=== PATIENT | male | born 1970 | race African-American/Black ===

== ENCOUNTER 2018-05-21 00:11 | Emergency (ER) | payer OTHER ==
--- OUTSIDE RECORDS SUMMARY | 2018-05-21 00:14 | XMS REPORT ---
:1970 [facility] Address [address] [place] [address] Dr. Hughes [address] [place] [id number] Care Team Providers Name Role Phone Unavailable Unavailable Unavailable Problems This patient has no known problems. Allergies, Adverse Reactions, Alerts This patient has no known allergies or adverse reactions. Medications This patient has no known medications.
[2018-05-21] MEDS ORDERED: NA CHLORIDE 0.9% 1,000 ML ONE (02:14)
[2018-05-21 02:22] LABS: Absolute Lymphocytes (CBC) 3.6 K/uL (0.7-4.9); Absolute Monocytes 0.5 K/uL (0.1-1.3); Absolute Neutrophil 2.7 K/uL (1.8-8.0); Basophils % 0.7 % (0-1.3); Hematocrit 35.5 % (39.6-49.0); MPV 9.2 fL (7.6-11.3); Monocytes % 7.3 % (3.3-12.3); RBC Red Blood Cell Count 3.82 M/uL (4.33-5.43)
[2018-05-21 02:36] LABS: Potassium 4.5 mmol/L (3.5-5.1)
[2018-05-21] MEDS ORDERED: ACETAMINOPHEN 325 MG TABLET ONE (02:41)
--- NOTE | 2018-05-21 03:18 | EDPHYS ---
Physician Documentation [facility] Name: Manfred Canales Jr Age: 48 yrs Sex: Male : 1970 Arrival Date: 05/21/2018 Time: 00:14 Bed 4 Private MD: ED Physician Joao Wetzel HPI: 05/21 03:09 This 48 yrs old Black Male presents to ER via Ambulatory with complaints of high blood gs sugar and bp. 03:09 Onset: The symptoms/episode began/occurred 2 week(s) ago. Associated signs and gs symptoms: Pertinent positives: visual changes. Severity of symptoms: At its worst the blood pressure was moderate, in the emergency department the blood pressure is unchanged. The patient has experienced similar episodes in the past, a few times. says stopped taking medicine for bp and diabetes. Historical: - Allergies: 00:27 No Known Allergies; bb - Home Meds: :27 Unable to obtain [Active]; bb - PMHx: :27 Diabetes - NIDDM; Gout; High Cholesterol; Hypertension; Myocardial infarction; bb - PSHx: 00:27 CABG; Heart stents; Carpal Tunnel Repair; herniated discs in neck; right hip; bb - Immunization history:: Adult Immunizations up to date. - Social history:: Smoking status: Patient/guardian denies using tobacco, Patient uses alcohol, but reports only rare drinking. - Ebola Screening: : No symptoms or risks identified at this time. ROS: 03:09 All other systems are negative. gs Exam: 03:09 Head/Face: Normocephalic, atraumatic. Eyes: Pupils equal round and reactive to light, gs extra-ocular motions intact. Lids and lashes normal. Conjunctiva and sclera are non-icteric and not injected. Cornea within normal limits. Periorbital areas with no swelling, redness, or edema. ENT: Nares patent. No nasal discharge, no septal abnormalities noted. Tympanic membranes are normal and external auditory canals are clear. Oropharynx with no redness, swelling, or masses, exudates, or evidence of obstruction, uvula midline. Mucous membranes moist. Neck: Trachea midline, no thyromegaly or masses palpated, and no cervical lymphadenopathy. Supple, full range of motion without nuchal rigidity, or vertebral point tenderness. No Meningismus. Chest/axilla: Normal chest wall appearance and motion. Nontender with no deformity. No lesions are appreciated. Cardiovascular: Regular rate and rhythm with a normal S1 and S2. No gallops, murmurs, or rubs. Normal PMI, no JVD. No pulse deficits. Respiratory: Lungs have equal breath sounds bilaterally, clear to auscultation and percussion. No rales, rhonchi or wheezes noted. No increased work of breathing, no retractions or nasal flaring. Abdomen/GI: Soft, non-tender, with normal bowel sounds. No distension or tympany. No guarding or rebound. No evidence of tenderness throughout. Back: No spinal tenderness. No costovertebral tenderness. Full range of motion. Skin: Warm, dry with normal turgor. Normal color with no rashes, no lesions, and no evidence of cellulitis. MS/ Extremity: Pulses equal, no cyanosis. Neurovascular intact. Full, normal range of motion. Neuro: Awake and alert, GCS 15, oriented to person, place, time, and situation. Cranial nerves II-XII grossly intact. Motor strength 5/5 in all extremities. Sensory grossly intact. Cerebellar exam normal. Normal gait. 03:09 Constitutional: The patient appears alert, awake. 03:09 ECG was reviewed by the Attending Physician. Vital Signs: 00:27 BP 130 / 81; Pulse 61; Resp 16 S; Temp 98.6(O); Pulse Ox 98% on R/A; Weight 113.4 kg bb (R); Height 5 ft. 11 in. (180.34 cm) (R); Pain 8/10; 01:30 BP 115 / 73; Pulse 55; Resp 16; Pulse Ox 99% ; rr5 02:30 BP 113 / 70; Pulse 58; Resp 15; Pulse Ox 99% ; rr5 03:00 BP 104 / 65; Pulse 56; Resp 16; Pulse Ox 99% ; rr5 03:30 BP 103 / 52; Pulse 58; Resp 16; Pulse Ox 98% ; rr5 04:00 BP 106 / 59; Pulse 60; Resp 17; Pulse Ox 99% ; rr5 00:27 Body Mass Index 34.87 (113.40 kg, 180.34 cm) bb Visual Acuity: 02:28 Left Eye Visual acuity 20/20, Pupil size 2 mm, Normal, Brisk, Reactive To Accomodation; rr5 Right Eye Visual acuity 20/20, Pupil size 2 mm, Normal, Brisk, Reactive To Accomodation; Both Eyes Visual acuity 20/20; Without Lenses; MDM: 02:01 Patient medically screened. 03:09 Differential diagnosis: hypertensive crisis, Malignant HTN, neoplasm, dm retinal gs hemorrhage. Data reviewed: vital signs, nurses notes. Response to treatment: the patient's symptoms have markedly improved after treatment, and as a result, I will discharge patient. 05/21 01:54 Order name: CBC with Diff; Complete Time: 03:03 05/21 01:54 Order name: Basic Metabolic Panel; Complete Time: 03:03 05/21 01:54 Order name: CT Head Brain wo Cont 05/21 01:55 Order name: Visual Acuity; Complete Time: 02:28 05/21 01:59 Order name: EKG - Nurse/Tech; Complete Time: 02:02 Administered Medications: 02:25 Drug: NS 0.9% 1000 ml Route: IV; Rate: 1 bolus; Site: left forearm; rr5 04:03 Follow up: Response: No adverse reaction; IV Status: Completed infusion; IV Intake: rr5 1000ml 02:33 Drug: Tylenol 650 mg Route: PO; rr5 04:03 Follow up: Response: No adverse reaction rr5 Point of Care Testing: Blood Glucose: 01:57 Blood Glucose: 377 mg/dL; rr5 03:55 Blood Glucose: 337 mg/dL; rr5 Ranges: Critical Glucose Levels:Adult <50 mg/dl or >400 mg/dl <40 mg/dl or >180 mg/dl Disposition: 05/21/18 03:17 Discharged to Home. Impression: Essential (primary) hypertension, Hyperglycemia, unspecified. - Condition is Stable. - Discharge Instructions: Hyperglycemia, Hypertension. - Medication Reconciliation Form, Thank You Letter, Antibiotic Education, Prescription Opioid Use form. - Follow up: Private Physician; When: 2 - 3 days; Reason: Recheck today's complaints, Re-evaluation by your physician. Signatures: Dispatcher [employer] Tammy Burk, RN RN Joao Hernandez MD MD gs Roque, Raymond, RN RN rr5 Corrections: (The following items were deleted from the chart) 04:07 03:17 05/21/2018 03:17 Discharged to Home. Impression: Essential (primary) rr5 hypertension; Hyperglycemia, unspecified. Condition is Stable. Forms are Medication Reconciliation Form, Thank You Letter, Antibiotic Education, Prescription Opioid Use. Follow up: Private Physician; When: 2 - 3 days; Reason: Recheck today's complaints, Re-evaluation by your physician. gs
--- NOTE | 2018-05-21 03:18 | ER ---
Nurse's Notes [facility] Name: Manfred Canales Jr Age: 48 yrs Sex: Male : 1970 Arrival Date: 05/21/2018 Time: 00:14 Bed 4 Private MD: Diagnosis: Essential (primary) hypertension;Hyperglycemia, unspecified Presentation: 05/21 00:24 Presenting complaint: Patient states: he has had blurred vision x 1.5 weeks states the bb last time it happened his blood sugar was high. Transition of care: patient was not received from another setting of care. Onset of symptoms was May 11, 2018. Risk Assessment: Do you want to hurt yourself or someone else? Patient reports no desire to harm self or others. Initial Sepsis Screen: Does the patient meet any 2 criteria? No. Patient's initial sepsis screen is negative. Does the patient have a suspected source of infection? No. Patient's initial sepsis screen is negative. Care prior to arrival: None. 00:24 Method Of Arrival: Ambulatory bb 00:24 Acuity: ISABEL 3 bb Historical: - Allergies: 00:27 No Known Allergies; bb - Home Meds: 00:27 Unable to obtain [Active]; bb - PMHx: 00:27 Diabetes - NIDDM; Gout; High Cholesterol; Hypertension; Myocardial infarction; bb - PSHx: 00:27 CABG; Heart stents; Carpal Tunnel Repair; herniated discs in neck; right hip; bb - Immunization history:: Adult Immunizations up to date. - Social history:: Smoking status: Patient/guardian denies using tobacco, Patient uses alcohol, but reports only rare drinking. - Ebola Screening: : No symptoms or risks identified at this time. Screenin:30 Abuse screen: Denies threats or abuse. Denies injuries from another. Nutritional rr5 screening: No deficits noted. Tuberculosis screening: No symptoms or risk factors identified. Fall Risk Secondary diagnosis (15 points) blurred vision. No IV (0 pts). Ambulatory Aid- None/Bed Rest/Nurse Assist (0 pts). Gait- Normal/Bed Rest/Wheelchair (0 pts) Mental Status- Oriented to own ability (0 pts). Total Mae Fall Scale indicates No Risk (0-24 pts). Assessment: 00:30 General: Appears in no apparent distress. uncomfortable, Behavior is calm, cooperative, rr5 appropriate for age. Pain: Denies pain. Complains of pain in temporal area Pain does not radiate. Pain currently is 8 out of 10 on a pain scale. Quality of pain is described as aching, Pain began gradually. 00:30 Pain: Is intermittent. Neuro: Level of Consciousness is awake, alert, obeys commands, rr5 Oriented to person, place, time, situation, Appropriate for age Reports headache temporal area. Cardiovascular: Capillary refill < 3 seconds Patient's skin is warm and dry. Respiratory: Airway is patent Respiratory effort is even, unlabored, Respiratory pattern is regular, symmetrical. GI: Abdomen is round. : No signs and/or symptoms were reported regarding the genitourinary system. EENT: Reports blurred vision. Derm: Skin is intact, Skin temperature is warm. Musculoskeletal: No signs and/or symptoms reported regarding the musculoskeletal system. Capillary refill < 3 seconds, Range of motion: intact in all extremities. 01:10 Reassessment: Patient appears in no apparent distress at this time. No changes from rr5 previously documented assessment. Patient is alert, oriented x 3, equal unlabored respirations, skin warm/dry/pink. 02:50 Reassessment: Patient appears in no apparent distress at this time. Patient is alert, rr5 oriented x 3, equal unlabored respirations, skin warm/dry/pink. awaiting for CT report. 04:00 Reassessment: Patient appears in no apparent distress at this time. No changes from rr5 previously documented assessment. Patient is alert, oriented x 3, equal unlabored respirations, skin warm/dry/pink. discharge instruction given and explained without complaints made. Patient states symptoms have improved. Vital Signs: 00:27 BP 130 / 81; Pulse 61; Resp 16 S; Temp 98.6(O); Pulse Ox 98% on R/A; Weight 113.4 kg bb (R); Height 5 ft. 11 in. (180.34 cm) (R); Pain 8/10; 01:30 BP 115 / 73; Pulse 55; Resp 16; Pulse Ox 99% ; rr5 02:30 BP 113 / 70; Pulse 58; Resp 15; Pulse Ox 99% ; rr5 03:00 BP 104 / 65; Pulse 56; Resp 16; Pulse Ox 99% ; rr5 03:30 BP 103 / 52; Pulse 58; Resp 16; Pulse Ox 98% ; rr5 04:00 BP 106 / 59; Pulse 60; Resp 17; Pulse Ox 99% ; rr5 00:27 Body Mass Index 34.87 (113.40 kg, 180.34 cm) bb Visual Acuity: 02:28 Left Eye Visual acuity 20/20, Pupil size 2 mm, Normal, Brisk, Reactive To Accomodation; rr5 Right Eye Visual acuity 20/20, Pupil size 2 mm, Normal, Brisk, Reactive To Accomodation; Both Eyes Visual acuity 20/20; Without Lenses; ED Course: 00:14 Patient arrived in ED. ag3 00:25 Triage completed. bb 00:27 Arm band placed on Patient placed in an exam room, on a stretcher, on pulse oximetry. bb EKG completed in triage. Results shown to MD. 00:30 Patient has correct armband on for positive identification. Placed in gown. Bed in low rr5 position. Call light in reach. Side rails up X2. monitoring tech on. Pulse ox on. NIBP on. 00:35 Ryan Mckeon RN is Primary Nurse. rr5 01:53 Joao Wetzel MD is Attending Physician. gs 02:14 No provider procedures requiring assistance completed. Inserted saline lock: 20 gauge rr5 in left forearm, using aseptic technique. Blood collected. 02:15 Basic Metabolic Panel Sent. rr5 02:15 CBC with Diff Sent. rr5 02:[address] via wheelchair. kw1 02:23 CT Head Brain wo Cont In Process Unspecified. EDMS 02:24 CT completed. Patient tolerated procedure well. Patient moved back from CT. kw1 04:03 IV discontinued, intact, bleeding controlled, No redness/swelling at site. Pressure rr5 dressing applied. Administered Medications: 02:25 Drug: NS 0.9% 1000 ml Route: IV; Rate: 1 bolus; Site: left forearm; rr5 04:03 Follow up: Response: No adverse reaction; IV Status: Completed infusion; IV Intake: rr5 1000ml 02:33 Drug: Tylenol 650 mg Route: PO; rr5 04:03 Follow up: Response: No adverse reaction rr5 Point of Care Testing: Blood Glucose: 01:57 Blood Glucose: 377 mg/dL; rr5 03:55 Blood Glucose: 337 mg/dL; rr5 Ranges: Intake: 04:03 IV: 1000ml; Total: 1000ml. rr5 Outcome: 03:17 Discharge ordered by . gutierrez 04:00 Discharged to home ambulatory. rr5 04:00 Condition: stable 04:00 Discharge instructions given to patient, Instructed on discharge instructions, follow up and referral plans. Demonstrated understanding of instructions, follow-up care. 04:07 Patient left the ED. rr5 Signatures: Dispatcher [employer] EDTammy Spence RN RN Joao Hernandez MD MD Annie Botello1 Lita Pablo 3 Ryan Mckeon RN RN rr5 Corrections: (The following items were deleted from the chart) 00:42 00:30 Fall Risk Secondary diagnosis (15 points) blurred vision. No IV (0 pts). rr5 Ambulatory Aid- None/Bed Rest/Nurse Assist (0 pts). Gait- Normal/Bed Rest/Wheelchair (0 pts) Mental Status- Oriented to own ability (0 pts). rr5
[2018-05-21 04:24] VITALS: TEMP 98.6
[2018-05-21 04:31] VITALS: BP 106/59; O2SAT 99
--- NOTE | 2018-05-21 11:00 | RAD REPORT ---
EXAM DESCRIPTION: CT - Head Brain Wo Cont - 05/21/2018 9:21 am CLINICAL HISTORY: Blurred vision COMPARISON: None. TECHNIQUE: Computed axial tomography of the head was obtained. IV contrast was not requested.A preli minary report was generated by Directly and reviewed prior to dictation All CT scans are performed using dose optimization technique as appropriate and may include automated exposure control or mA/KV adjustment according to patient size. FINDINGS: An intracranial bleed is not seen . The ventricles are normal in caliber. No extra-axial fluid collection is noted. Fluid within the sinuses/ mastoids is not seen. IMPRESSION: No acute intracranial abnormality is seen. If patient's symptoms persist MRI of the bra in would be recommended.
--- NOTE | 2018-05-23 11:49 | EKG ---
Test Date: 2018-05-21 Test Time: 00:23:15 [employer]ork Truck Driver: BARRON MEASUREMENT RESULTS: Intervals: Rate: 56 AR: 206 QRSD: 112 QT: 436 QTc: 420 [place]: P: 61 AR: 206 QRS: 98 T: 54 INTERPRETIVE STATEMENTS: Sinus bradycardia Rightward axis Cannot rule out Anterior infarct, age undetermined Abnormal ECG Compared to ECG 07/30/2016 00:06:28 Right-axis deviation now present Myocardial infarct finding now present Sinus rhythm no longer present Left-axis deviation no longer present Left ventricular hypertrophy no longer present ST (T wave) deviation no longer present Prolonged QT interval no longer present Electronically Signed On 05-23-18 11:43:25 HEEL BUILDER by Irwin Ying
== END 2018-05-21 04:07 | disposition home or self-care (01) ==
LOC: ER 00:11
DX: R73.9 Hyperglycemia, unspecified (principal); I10 Essential (primary) hypertension
CPT/HCPCS: 36415; 70450; 80048; 82962 ×2; 85025; 93005; J7030

== ENCOUNTER 2018-05-24 21:11 | Emergency (ER) | payer OTHER ==
--- OUTSIDE RECORDS SUMMARY | 2018-05-24 21:14 | XMS REPORT ---
:1970 [facility] [address] [place] [address] Dr. Hughes [address] [place] [id number] Care Team Providers Name Role Phone Unavailable Unavailable Unavailable Problems This patient has no known problems. Allergies, Adverse Reactions, Alerts This patient has no known allergies or adverse reactions. Medications This patient has no known medications.
[2018-05-24 23:33] LABS: Absolute Monocytes 0.5 K/uL (0.1-1.3); Basophils % 1.3 % (0-1.3); Eosinophils % 0.6 % (0-4.4); Lymphocytes % 52.2 % (15.3-44.8); MPV 8.9 fL (7.6-11.3); Monocytes % 7.1 % (3.3-12.3); RBC Red Blood Cell Count 3.78 M/uL (4.33-5.43)
[2018-05-25] LABS: Bilirubin Direct 0.3 mg/dL (0-0.2); Bilirubin Total 1.2 mg/dL (0.2-1.0); Potassium 4.2 mmol/L (3.5-5.1); Protein, Total 7.6 g/dL (6.4-8.2)
[2018-05-25] MEDS ORDERED: INSULIN -REGULAR HUMAN 50 UNIT/0.5 ML ML ONE (00:04)
[2018-05-25] MEDS ORDERED: NA CHLORIDE 0.9% 1,000 ML ONE (00:04)
--- NOTE | 2018-05-25 00:14 | ER ---
Nurse's Notes [facility] Name: Manfred Canales Jr Age: 48 yrs Sex: Male : 1970 Arrival Date: 05/24/2018 Time: 21:13 Bed 18 Private MD: Erick Fishman Diagnosis: Diabetes mellitus due to underlying condition with hyperglycemia Presentation: 05/24 21:18 Presenting complaint: Patient states: Seen here on Wednesday for same complaint and told lp1 to return if blurred vision did not improve; Denies any other symptoms. Transition of care: patient was not received from another setting of care. Onset of symptoms was May 21, 2018. Risk Assessment: Do you want to hurt yourself or someone else? Patient reports no desire to harm self or others. Initial Sepsis Screen: Does the patient meet any 2 criteria? No. Patient's initial sepsis screen is negative. Does the patient have a suspected source of infection? No. Patient's initial sepsis screen is negative. Care prior to arrival: None. 21:18 Method Of Arrival: Ambulatory lp1 21:18 Acuity: ISABEL 3 lp1 Historical: - Allergies: 21:24 Morphine; lp1 - Home Meds: 21:24 aspirin 81 mg Oral TbEC 1 tab once daily [Active]; amlodipine 10 mg tab 1 tab once lp1 daily [Active]; metformin 850 mg Oral tab 1 tab 3 times per day [Active]; Januvia 100 mg Oral tab 1 tab once daily [Active]; allopurinol 100 mg Oral tab 1 tab once daily [Active]; lovastatin 40 mg Oral tab 1 tab once daily [Active]; Plavix 75 mg Oral tab 1 tab once daily [Active]; - PMHx: 21:24 Myocardial infarction; Diabetes - NIDDM; Gout; High Cholesterol; Hypertension; lp1 - PSHx: 21:24 Heart stents; CABG; Disc fusion of 4-5 discs; Carpal Tunnel Repair; lp1 - Immunization history:: Adult Immunizations up to date. - Social history:: Smoking status: Patient/guardian denies using tobacco. - Ebola Screening: : No symptoms or risks identified at this time. Screenin:24 Abuse screen: Denies threats or abuse. Denies injuries from another. Nutritional lp1 screening: No deficits noted. Tuberculosis screening: No symptoms or risk factors identified. Fall Risk None identified. Assessment: 21:34 General: Appears in no apparent distress. comfortable, well groomed, well developed, eb1 Behavior is calm, cooperative, appropriate for age, Denies fever, feeling ill, fatigue, chills. Pain: Complains of pain in neck Pain currently is 8 out of 10 on a pain scale. Neuro: Level of Consciousness is awake, alert, obeys commands, Oriented to person, place, time, [employer] Associate are equal bilaterally Moves all extremities. Full function Gait is steady, Speech is normal, Facial symmetry appears normal, Pupils are PERRLA, Intact Reports blurred vision since x1 week. Cardiovascular: No deficits noted. Respiratory: No deficits noted. GI: No deficits noted. : No deficits noted. EENT: No deficits noted. Derm: No deficits noted. Musculoskeletal: No deficits noted. 23:02 Reassessment: No changes from previously documented assessment. Patient and/or family eb1 updated on plan of care and expected duration. Pain level reassessed. Patient is alert, oriented x 3, equal unlabored respirations, skin warm/dry/pink. Vital Signs: 21:20 BP 123 / 81; Pulse 61; Resp 18; Temp 99.5(O); Pulse Ox 98% on R/A; Weight 113.4 kg; lp1 Height 5 ft. 11 in. (180.34 cm); Pain 0/10; 22:40 BP 107 / 74; Pulse 70; Resp 20; Temp 98.7; Pulse Ox 99% ; Pain 8/10; eb1 23:44 BP 110 / 77; Pulse 60; Resp 20; Temp 98.8; Pulse Ox 99% ; Pain 8/10; eb1 05/25 01:07 Pain 6/10; eb1 05/24 21:20 Body Mass Index 34.87 (113.40 kg, 180.34 cm) lp1 Visual Acuity: 05/24 23:44 Left Eye Visual acuity 20/70, Pupil size 3 mm, Normal, React To Light; Right Eye Visual eb1 acuity 20/70, Pupil size 3 mm, Normal, React To Light; Both Eyes Visual acuity 20/70; Without Lenses; ED Course: 21:13 Patient arrived in ED. es 21:14 Erick Fishman MD is Private Physician. es 21:19 Triage completed. lp1 21:19 Arm band placed on left wrist. lp1 22:17 Page, Pepe, PA is PHCP. cp 22:17 Derrick Contreras MD is Attending Physician. cp 05/25 00:02 Inserted saline lock: 20 gauge in left forearm, using aseptic technique. jd3 00:03 Patient has correct armband on for positive identification. Placed in gown. Bed in low eb1 position. Call light in reach. Side rails up X2. rn med surg on. Pulse ox on. NIBP on. 01:08 No provider procedures requiring assistance completed. IV discontinued, intact, eb1 bleeding controlled, No redness/swelling at site. Pressure dressing applied. Administered Medications: 05/24 23:56 Drug: NovoLIN R 7 units {Co-Signature: jose (Nguyễn Talbert RN).} Route: Sub-Q; Site: eb1 right upper arm; 05/25 00:09 Drug: NS 0.9% 1000 ml Route: IV; Rate: 1 bolus; Site: left forearm; eb1 00:13 Drug: TORadol 30 mg Route: IVP; Site: left forearm; eb1 01:07 Follow up: Pain 10/10 Adult eb1 Outcome: 00:13 Discharge ordered by MD. cp 01:08 Discharged to home ambulatory. eb1 01:08 Condition: good 01:08 Discharge instructions given to patient, Instructed on discharge instructions, follow up and referral plans. Demonstrated understanding of instructions, follow-up care. 01:09 Patient left the ED. eb1 Signatures: Casie Samuels Laura, RN RN lp1 Pepe Quiñonez PA PA cp Davies, Jonathon, RN RN jd3 Basinger, Emily, RN RN eb1 Nguyễn garcia
--- NOTE | 2018-05-25 00:15 | EDPHYS ---
Physician Documentation [facility] Name: Manfred Canales Jr Age: 48 yrs Sex: Male : 1970 Arrival Date: 05/24/2018 Time: 21:13 Bed 18 Private MD: Erick Fishman ED Physician Derrick Contreras HPI: 05/24 22:35 This 48 yrs old Black Male presents to ER via Ambulatory with complaints of Blurred cp Vision. 22:35 The patient's problem is reported as blurred vision. Onset: The symptoms/episode cp began/occurred last week. Duration: The episode is continuous. Context: Possible contributing factors include: Patient is a know diabetic. Associated signs and symptoms: Pertinent negatives: abdominal pain, chest pain, headache, numbness, palpitations, vertigo, vomiting, weakness. Severity of symptoms: in the emergency department the symptoms are unchanged despite home interventions. Patient's baseline: Neuro: alert and fully oriented, Motor: no deficits, Ambulation: walks without assistance, Speech: normal. Historical: - Allergies: 21:24 Morphine; lp1 - Home Meds: 21:24 aspirin 81 mg Oral TbEC 1 tab once daily [Active]; amlodipine 10 mg tab 1 tab once lp1 daily [Active]; metformin 850 mg Oral tab 1 tab 3 times per day [Active]; Januvia 100 mg Oral tab 1 tab once daily [Active]; allopurinol 100 mg Oral tab 1 tab once daily [Active]; lovastatin 40 mg Oral tab 1 tab once daily [Active]; Plavix 75 mg Oral tab 1 tab once daily [Active]; - PMHx: 21:24 Myocardial infarction; Diabetes - NIDDM; Gout; High Cholesterol; Hypertension; lp1 - PSHx: 21:24 Heart stents; CABG; Disc fusion of 4-5 discs; Carpal Tunnel Repair; lp1 - Immunization history:: Adult Immunizations up to date. - Social history:: Smoking status: Patient/guardian denies using tobacco. - Ebola Screening: : No symptoms or risks identified at this time. ROS: 22:40 Constitutional: Negative for body aches, chills, poor PO intake. cp 22:40 ENT: Negative for injury, pain, and discharge. cp 22:40 Eyes: Positive for blurry vision, Negative for discharge, pain, redness, vision loss. 22:40 Cardiovascular: Negative for chest pain, edema, palpitations. 22:40 Respiratory: Negative for cough, shortness of breath, wheezing. 22:40 Abdomen/GI: Negative for abdominal pain, nausea, vomiting, and diarrhea, constipation, black/tarry stool, rectal bleeding. 22:40 Back: Negative for pain at rest, pain with movement, radiated pain. 22:40 : Negative for urinary symptoms. 22:40 Skin: Negative for cellulitis, rash. 22:40 Neuro: Negative for altered mental status, headache, syncope, near syncope, weakness. 22:40 All other systems are negative. Exam: 22:45 Constitutional: The patient appears in no acute distress, alert, awake, cp non-diaphoretic, non-toxic, well developed, well nourished. 22:45 Head/Face: Normocephalic, atraumatic. Eyes: Pupils equal round and reactive to light, cp extra-ocular motions intact. Lids and lashes normal. Conjunctiva and sclera are non-icteric and not injected. Cornea within normal limits. Periorbital areas with no swelling, redness, or edema. ENT: Nares patent. No nasal discharge, no septal abnormalities noted. Tympanic membranes are normal and external auditory canals are clear. Oropharynx with no redness, swelling, or masses, exudates, or evidence of obstruction, uvula midline. Mucous membranes moist. 22:45 Neck: External neck: is normal, ROM/movement: is normal, is supple, no range of motions limitations, no meningismus, no nuchal rigidity. 22:45 Chest/axilla: Inspection: normal, Palpation: is normal, no crepitus, no tenderness. 22:45 Cardiovascular: Rate: normal, Rhythm: regular, Heart sounds: murmur, not appreciated, rub, not appreciated, gallop, not appreciated, Edema: is not appreciated, JVD: is not appreciated. 22:45 Respiratory: the patient does not display signs of respiratory distress, Respirations: normal, no use of accessory muscles, no retractions, no splinting, no tachypnea, labored breathing, is not present, Breath sounds: are clear throughout, no decreased breath sounds, no stridor, no wheezing. 22:45 Abdomen/GI: Inspection: abdomen appears normal, Bowel sounds: active, all quadrants, Palpation: abdomen is soft and non-tender, in all quadrants, rebound tenderness, is not appreciated, voluntary guarding, is not appreciated, involuntary guarding, is not appreciated. 22:45 Back: pain, is absent, ROM is normal. 22:45 Musculoskeletal/extremity: Exam is negative for decreased range of motion, deformity, injury. 22:45 Skin: cellulitis, is not appreciated, no rash present. 22:45 Neuro: Orientation: to person, place \T\ time. Mentation: is normal, Cerebellar function: is grossly normal, Motor: moves all fours, strength is normal, Sensation: is normal, Gait: is steady, at a normal pace, without difficulty. 22:45 CT study not indicated or reported. Reason for not performing CT: patient had normal head CT 05-21-2018 for similar complaints 23:35 ECG was reviewed by the Attending Physician. Vital Signs: 21:20 BP 123 / 81; Pulse 61; Resp 18; Temp 99.5(O); Pulse Ox 98% on R/A; Weight 113.4 kg; lp1 Height 5 ft. 11 in. (180.34 cm); Pain 0/10; 22:40 BP 107 / 74; Pulse 70; Resp 20; Temp 98.7; Pulse Ox 99% ; Pain 8/10; eb1 23:44 BP 110 / 77; Pulse 60; Resp 20; Temp 98.8; Pulse Ox 99% ; Pain 8/10; eb1 05/25 01:07 Pain 6/10; eb1 05/24 21:20 Body Mass Index 34.87 (113.40 kg, 180.34 cm) lp1 Visual Acuity: 05/24 23:44 Left Eye Visual acuity 20/70, Pupil size 3 mm, Normal, React To Light; Right Eye Visual eb1 acuity 20/70, Pupil size 3 mm, Normal, React To Light; Both Eyes Visual acuity 20/70; Without Lenses; MDM: 22:17 Patient medically screened. cp 22:30 Differential diagnosis: CVA, TIA, metabolic disorder, drug effects. 05/25 00:13 Data reviewed: vital signs, nurses notes. cp 00:13 Test interpretation: by ED physician or midlevel provider: ECG. Counseling: I had a cp detailed discussion with the patient and/or guardian regarding: the historical points, exam findings, and any diagnostic results supporting the discharge/admit diagnosis, lab results, the need for outpatient follow up, a family practitioner, to return to the emergency department if symptoms worsen or persist or if there are any questions or concerns that arise at home. Response to treatment: the patient's symptoms have mildly improved after treatment, and as a result, I will discharge patient. 05/24 22:22 Order name: Basic Metabolic Panel; Complete Time: 00:08 cp 05/25 00:08 Interpretation: Normal except: GLUC 232; GFR 84. cp 05/24 22:22 Order name: CBC with Diff; Complete Time: 23:49 cp 05/24 23:49 Interpretation: Normal except: RBC 3.78; HGB 11.9; HCT 35.0; ALEK% 38.8; LYM% 52.2. 05/24 22: Order name: Creatinine for Radiology; Complete Time: 00:08 cp 05/24 21: Order name: Hepatic Function; Complete Time: 00:08 cp 05/25 00:09 Interpretation: Normal except: BILIT 1.2; BILID 0.3; GLOB 3.6. 05/24 23:40 Order name: Glucose, Ancillary Testing; Complete Time: 23:49 EDMS 05/24 23:49 Interpretation: Abnormal: GLUC,ANCIL 268. cp 05/24 22:22 Order name: IV Saline Lock; Complete Time: 00:37 cp 05/24 21: Order name: Labs collected and sent; Complete Time: 00:37 cp 05/24 21: Order name: Accucheck Blood Glucose; Complete Time: 22:57 cp 05/24 21: Order name: Visual Acuity; Complete Time: 23:44 cp 05/24 21:23 Order name: EKG; Complete Time: 22:24 cp 05/24 22:23 Order name: EKG - Nurse/Tech; Complete Time: 00:37 cp EC/22 23:35 Rate is 60 beats/min. Rhythm is regular. DC interval is prolonged at 206 msec. QRS cp interval is normal. QT interval is normal. T waves are Flattened in lead aVL. Interpreted by me. Reviewed by me. Administered Medications: 23:56 Drug: NovoLIN R 7 units {Co-Signature: jd3 (Nguyễn Talbert RN).} Route: Sub-Q; Site: [facility] right upper arm; 05/25 00:09 Drug: NS 0.9% 1000 ml Route: IV; Rate: 1 bolus; Site: left forearm; eb1 00:13 Drug: TORadol 30 mg Route: IVP; Site: left forearm; eb1 01:07 Follow up: Pain 10/10 Adult eb1 Disposition: 05/25/18 00:13 Discharged to Home. Impression: Diabetes mellitus due to underlying condition with hyperglycemia. - Condition is Stable. - Discharge Instructions: Type 2 Diabetes Mellitus, Diagnosis, Adult, Blood Glucose Monitoring, Adult, Diabetes Mellitus and Food. - Medication Reconciliation Form, Thank You Letter, Antibiotic Education, Prescription Opioid Use form. - Follow up: Private Physician; When: Tomorrow; Reason: Recheck today's complaints. - Problem is chronic. - Symptoms have improved. Signatures: Dispatcher [employer] EDMS Simran Lau RN RN lp1 Pepe Quiñonez PA PA cp Davies, Jonathon, RN RN jd3 Macrina Espinoza RN RN eb1 Nguyễn Talbert RN jd3 Corrections: (The following items were deleted from the chart) 01:09 00:13 05/25/2018 00:13 Discharged to Home. Impression: Diabetes mellitus due to eb1 underlying condition with hyperglycemia. Condition is Stable. Forms are Medication Reconciliation Form, Thank You Letter, Antibiotic Education, Prescription Opioid Use. Follow up: Private Physician; When: Tomorrow; Reason: Recheck today's complaints. Problem is chronic. Symptoms have improved. cp
[2018-05-25] MEDS ORDERED: KETOROLAC 30 MG/ML INJ ONE (00:20)
[2018-05-25 01:48] VITALS: O2SAT 99
[2018-05-25 01:49] VITALS: BP 110/77; TEMP 98.8
--- NOTE | 2018-05-25 19:48 | EKG ---
Test Date: 2018-05-24 Test Time: 23:26:47 Meter Record Clerk: AG3 MEASUREMENT RESULTS: Intervals: Rate: 60 MO: 206 QRSD: 100 QT: 426 QTc: 426 Irving: P: 24 MO: 206 QRS: 92 T: 49 INTERPRETIVE STATEMENTS: Sinus rhythm with marked sinus arrhythmia Rightward axis Cannot rule out Anterior infarct, age undetermined Abnormal ECG Compared to ECG 05/21/2018 00:23:15 Sinus bradycardia no longer present Myocardial infarct finding still present Electronically Signed On 05-25-18 19:45:50 [employer]ATION[employer] ENG[employer] by Irwin Ying
== END 2018-05-25 01:09 | disposition home or self-care (01) ==
LOC: ER 21:11
DX: E11.65 Type 2 diabetes mellitus with hyperglycemia (principal); I10 Essential (primary) hypertension; E78.00 Pure hypercholesterolemia, unspecified; I25.2 Old myocardial infarction; Z79.4 Long term (current) use of insulin; Z79.01 Long term (current) use of anticoagulants; Z79.82 Long term (current) use of aspirin; Z88.5 Allergy status to narcotic agent; Z95.1 Presence of aortocoronary bypass graft; Z95.818 Presence of other cardiac implants and grafts
CPT/HCPCS: 36415; 80048; 80076; 82962; 85025; 93005; 96372; 96374; 99284; J7030

== ENCOUNTER 2020-07-04 13:33 | Observation (INO) | payer OTHER ==
--- OUTSIDE RECORDS SUMMARY | 2020-07-04 13:36 | XMS REPORT | Continuity of Care Document ---
:1970 Author Organization [facility] t Address [address] [place] [address] Care Team Providers Name Role Phone Viktoria ALLRED, L Attending Clinician Problems Condition Condition Condition Status Onset Resolution Last Treating Co mments Source Name Details Category Date Date Treatment Clinician Date Hx of CABG Diagnosis Active 2019-11-04 Memoria 02:53:17 l Hx of [place] CABG Active Diagnosis 11/04/2019 Ness Arzola Precordial Diagnosis Active 2019-11-04 Memoria pain 02:53:17 l [place] Precordial pain Active Diagnosis 11/04/2019 Ghazalmed Ghazalmed Shortness Diagnosis Active 2019-11-04 Memoria of breath 02:53:17 l Uri Shortness of breath Active Diagnosis 11/04/2019 Ness Ahmed Pre-operat Diagnosis Active 2019-11-04 Memoria harriett 02:53:17 l cardiovasc [place] n ular Pre-operat examinatio harriett n cardiovasc ular examinatio n Active Diagnosis 11/04/2019 Ness Arzola Other Diagnosis Active 2019-11-04 Mem oria symptoms 02:53:17 l involving Other [place] n cardiovasc symptoms ular involving system cardiovasc ular system Active Diagnosis 11/04/2019 Ness Arzola Atheroscle Diagnosis Active 2019-11-04 Memoria r of 02:53:17 l chitina Uri artery of Atherosc[place] both legs r of with chitina intermit artery of claudicati both legs on with intermit claudicati on Active Diagnosis 11/04/2019 Ness Arzola DM w/o Problem Active 2019-11-04 Memor ia complicati 02:53:17 l on type DM w/o [place] II, 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, uncontroll ed Active Problem 0 Ghazalfranca Harmanmed Benign Problem Active 2019-11-04 Memor ia hypertensi 02:53:17 l ve heart Benign [place] n disease hypertensi without ve heart congestive disease heart without failure congestive heart failure Active Problem 11/04/2019 Ghazalmed Ghazalmed Reflux Problem Active 2019-11-04 Memor ia esophagiti 02:53:17 l s Reflux Uri esophagiti s Active Problem 11/04/2019 Ahmed Ahmed Pure Problem Active 2019-11-04 Memor ia hyperchole 02:53:17 l sterolemia Pure [place] n hyperchole sterolemia Active Problem 11/04/2019 Ness Ghazalmed Atheroscle Problem Active 2019-11-04 M emoria r-limb&cla 02:53:17 l udic [place] Atheroscle r-limb&cla udic Active Problem 11/04/2019 Ness Arzola Atheroscle Diagnosis Active 2019-11-04 Memoria rosis of 02:53:17 l coronary Uri artery Atheroscle bypass rosis of graft of coronary chitina artery heart with bypass stable graft of angina 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 N.K.D.A. Active Info Not 2018-05 Samuel mike Available 05-13 l 00:00: Uri 00 Medications Ordered Filled Start Stop Current Ordering Indication Dosage Frequency Signature Comments Components Source Medication Medication Date Date Medication? Clinician (SIG) Name Name Plavix Yes Ahmed 1 tablet Memori a 11-03 Ahmed l 02:53: Uri 17 Lisinopril Yes Ahmed 1 tablet Me moria 11-03 Ahmed l 02:53: Uri 17 Isosorbide Yes Ahmed 1 tablet Me moria Mononitrate - Ahmed l CR 02:53: Uri Nexium 2020-0 Yes Ahmed 1 capsule Memor ia 7- Ahmed l 02:53: Uri 17 Allopurinol 2020-0 Yes Ahmed 1 tablet M emoria - Ahmed l 02:53: Uri Super B 2020-0 Yes Ahmed not Memoria Complex 7- Ahmed defined l 02:53: Uri Crestor 2020-0 Yes Ahmed 1 tablet Memor ia 11-03 Ahmed l 02:53: Uri Tessalon 2020-0 Yes Ahmed 1 capsule Mem oria Perles 11-03 Ahmed as needed l 02:53: Uri Pro Air 2020-0 Yes Ahmed as direct Samuel mike - Ahmed l 02:53: Uri Multivitami 2020-0 Yes Ahmed as direct Memoria n - Ahmed l 02:53: Uri Metoprolol 2020-0 Yes Ahmed 1/2 tablet Memoria Tartrate 11-03 Ahmed l 02:53: Uri Aspirin 2020-0 Yes Ahmed 1 tablet Memor ia 11-03 Ahmed l 02:53: Uri Azithromyci 2020-0 Yes Ahmed 2 tablets Memoria n 7- Ahmed on the l 02:53: first day, Uri 17 then 1 tablet daily for 4 days Lovaza 2020-0 Yes Ahmed 4 capsules Samuel mike - Ahmed l 02:53: Uri Januvia 2020-0 Yes Ahmed 1 tablet Memor ia 11-03 Ahmed l 02:53: Uri Lantus 2020-0 Yes Ahmed not Memoria SoloStar 11-03 Ahmed defined l 02:53: Uri Metformin 2020-0 Yes Ahmed 1 tablet Mem oria HCl 11-03 Ahmed with a l 02:53: meal Uri Vitamin C 2020-0 Yes Ahmed not Memoria 7- Ahmed defined l 02:53: Uri 17 Vitamin C 2019-0 Yes Ahmed not Memoria 4- Ahmed defined l 03:16: Uri 57 Vital Signs Vital Name Observation Time Observation Value Comments Source Weight 2019-03-13 15:30:00 [facility] Heart Rate 2019-03-13 15:30:00 [facility] [place] Diastolic (mm Hg) 2019-03-13 15:30:00 Mem orial Uri Systolic (mm Hg) 2019-03-13 15:30:00 Samuel rial Uri Weight 2018-04-05 16:30:00 [facility] [place] Heart Rate 2018-04-05 16:30:00 [facility] Diastolic (mm Hg) 2018-04-05 16:30:00 Mem orial Uri Systolic (mm Hg) 2018-04-05 16:30:00 Samuel rial Uri Weight 2018-03-09 18:15:00 [facility] [place] Heart Rate 2018-03-09 18:15:00 [facility] [place] Diastolic (mm Hg) 2018-03-09 18:15:00 Mem orial Uri Systolic (mm Hg) 2018-03-09 18:15:00 Samuel rial [place] Weight 2017-05-05 16:45:00 [facility] [place] Heart Rate 2017-05-05 16:45:00 [facility] Diastolic (mm Hg) 2017-05-05 16:45:00 Mem orial [place] Systolic (mm Hg) 2017-05-05 16:45:00 Samuel rial Uri Weight 2017-04-15 17:30:00 [facility] Heart Rate 2017-04-15 17:30:00 [facility] Diastolic (mm Hg) 2017-04-15 17:30:00 Mem orial Uri Systolic (mm Hg) 2017-04-15 17:30:00 Samuel rial Uri Procedures This patient has no known procedures. Encounters Start End Encounter Admission Attending Care Care Encounter Source Date/Time Date/Time Type Type Clinicians Facility Department ID 2020-01-22 2020-01-22 Office [facility] [id number] 15:08:06 15:28:47 Visit [facility] [id number] Surgical [id number] Specialti [id number] [place] 2019-03-13 2019-03-13 Outpatient Ness Arzola [id number] [facility] 10:30:00 10:30:00 Cardiolog Cardiology a Melodie Cho 2018-06-06 2018-06-06 Outpatient Ness Arzola [id number] [facility] 10:02:00 10:02:00 Cardiolog Cardiology a Melodie Cho 2018-04-05 2018-04-05 Outpatient med med [id number] [facility] 11:30:00 11:30:00 Cardiolog Cardiology a Melodie Cho 2018-03-11 2018-03-11 Outpatient med Ahmed [id number] [facility] 09:34:00 09:34:00 Cardiolog Cardiology a Melodie Cho 2018-03-11 2018-03-11 Outpatient med med [id number] [facility] 08:44:00 08:44:00 Cardiolog Cardiology a Melodie Cho 2018-03-09 2018-03-09 Outpatient med med [id number] [facility] 13:15:00 13:15:00 Cardiolog Cardiology a Melodie Cho 2017-05-05 2017-05-05 Outpatient med med [id number] [facility] 10:45:00 10:45:00 Cardiolog Cardiology a Melodie Cho 2017-04-15 2017-04-15 Outpatient med med [id number] [facility] 11:30:00 11:30:00 Cardiolog Cardiology a Melodie Cho Results This patient has no known results.
[2020-07-04] MEDS ORDERED: KETOROLAC 30 MG/ML INJ ONE (14:23)
[2020-07-04] MEDS ORDERED: NA CHLORIDE 0.9% 1,000 ML ONE ×2 (14:23→17:10)
[2020-07-04 14:48] LABS: Protime INR 1.02
[2020-07-04 14:50] LABS: Absolute Lymphocytes (CBC) 2.1 K/uL (0.7-4.9); Basophils % 0.6 % (0-1.3); Hematocrit 37.7 % (39.6-49.0); Lymphocytes % 36.4 % (15.3-44.8); RBC Red Blood Cell Count 4.03 M/uL (4.33-5.43)
[2020-07-04 14:59] LABS: ALT/SGPT 31 U/L (12-78); AST/SGOT 17 U/L (15-37); Albumin 3.9 g/dL (3.4-5.0); Alkaline Phosphatase 104 U/L (45-117); BUN Blood Urea Nitrogen 15 mg/dL (7-18); Bicarbonate 19 mmol/L (21-32); Bilirubin Direct 0.1 mg/dL (0-0.2); Bilirubin Total 0.6 mg/dL (0.2-1.0); Lipase 287 U/L (73-393); Magnesium 2.3 mg/dL (1.8-2.4); NT PRO-BNP 62 pg/mL (<125); Potassium 4.8 mmol/L (3.5-5.1); Protein, Total 8.2 g/dL (6.4-8.2); Sodium Level 127 mmol/L (136-145); Troponin (Emerg Dept Use Only) < 0.02 ng/mL (0.0-0.045)
[2020-07-04 15:01] LABS: Urine Blood NEGATIVE (NEG); Urine Glucose 3+ (NEG); Urine Protein NEGATIVE (NEG); Urine Specific Gravity <1.005 (1.005-1.030); Urine pH 5.5 (5.0-7.0)
[2020-07-04 15:02] LABS: Urine Bacteria NONE SEEN /HPF (NONE SEEN); Urine RBC NONE SEEN /HPF (NONE SEEN)
[2020-07-04 15:06] LABS: Glucose Level 726 mg/dL (74-106)
--- NOTE | 2020-07-04 15:38 | RAD REPORT ---
EXAM DESCRIPTION: CT - Abdomen Pelvis Wo Contrast - 07/04/2020 3:20 pm CLINICAL HISTORY: Abdominal pain. low back pain;Abdominal distention COMPARISON: No comparisons TECHNIQUE: CT imaging of the abdomen and pelvis was performed without contrast. Solid organ, bowel a nd vascular assessment is limited due to lack of IV and oral contrast. All CT scans are performed using dose optimization technique as appropriate and may include automated exposure control or mA/KV adjustment according to patient size. FINDINGS: The lower lung juarez are clear. The liver, spleen, pancreas, adrenal glands and kidneys are within normal limits for a limited non-co ntrast examination. No bowel obstruction, free air, free fluid or abscess. Prominent stool throughout the colon noted. Th e appendix is normal. The osseous structures are within normal limits. IMPRESSION: No acute intra-abdominal or pelvic findings. Prominent fecal retention throughout the co lili. A limited non-contrast examination was performed as detailed.
[2020-07-04] MEDS ORDERED: INSULIN -REGULAR HUMAN 50 UNIT/0.5 ML ML ONE ×2 (15:52→17:10)
[2020-07-04 15:54] LABS: Arterial Blood Carboxyhemoglob 1.3 % (0-1.5); Blood Gas Oxyhemoglobin 95.3 % (94-97); Blood O2 Saturation 97.7 % (92-98.5)
[2020-07-04] MEDS ORDERED: HYDROCODONE/APAP 7.5/325 MG TAB ONE (16:29)
--- NOTE | 2020-07-04 16:36 | RAD REPORT ---
EXAM DESCRIPTION: RAD - Chest Single View - 07/04/2020 4:17 pm CLINICAL HISTORY: ABDOMINAL DISTENTION Chest pain. COMPARISON: Chest Single View dated 07/30/2016; CHEST SINGLE VIEW dated 05/29/2014; CHEST SINGLE VIEW dated 10/28/2013; CHEST SINGLE VIEW dated 07/17/2013 FINDINGS: Portable technique limits examination quality. The lungs are grossly clear. The heart is normal in size. No displaced fractures.Sternotomy wires. IMPRESSION: No acute intrathoracic process suspected.
[2020-07-04] MEDS ORDERED: FENTANYL CITR 100 MCG/2 ML ONE (16:37)
--- NOTE | 2020-07-04 16:49 | EDPHYS ---
Physician Documentation [facility] Name: Manfred Canales Jr Age: 50 yrs Sex: Male : 1970 Arrival Date: 07/04/2020 Time: 13:36 Bed 28 Private MD: Erick Fishman ED Physician Roger Posada HPI: 07/04 13:55 This 50 yrs old Black Male presents to ER via Ambulatory with complaints of High Blood cp Sugar, Back Pain, Urinary Problem. 13:55 The patient or guardian reports hyperglycemia, that was potentially precipitated by not cp taking prescribed medications. Onset: The symptoms/episode began/occurred last year. Associated signs and symptoms: Pertinent positives: polyuria, low back pain. Historical: - Allergies: 13:52 Morphine; ll1 - PMHx: 13:52 Diabetes - NIDDM; High Cholesterol; Myocardial infarction; Hypertension; Gout; ll1 - PSHx: 13:52 Disc fusion of 4-5 discs; Heart stents; CABG; Carpal Tunnel Repair; ll1 - Immunization history:: Flu vaccine status is unknown. - Social history:: Smoking status: Patient denies any tobacco usage or history of. ROS: 14:00 Constitutional: Negative for body aches, chills, fever, poor PO intake, weight loss. cp 14:00 Eyes: Negative for injury, pain, redness, and discharge. cp 14:00 ENT: Negative for ear pain, sore throat, difficulty swallowing, difficulty handling secretions. 14:00 Cardiovascular: Negative for chest pain, palpitations. 14:00 Respiratory: Negative for cough, shortness of breath, wheezing. 14:00 Abdomen/GI: Positive for abdominal distension, Negative for abdominal pain, vomiting, diarrhea, constipation, anorexia, black/tarry stool, rectal bleeding. 14:00 Back: Positive for pain at rest, pain with movement, of the lumbar area. 14:00 : Positive for urinary frequency, Negative for hematuria, burning with urination, difficulty urinating, bladder incontinence, testicular pain 14:00 Skin: Negative for cellulitis, rash. 14:00 Neuro: Negative for altered mental status, dizziness, headache, syncope, weakness. 14:00 All other systems are negative. Exam: 14:10 Constitutional: The patient appears in no acute distress, alert, awake, cp non-diaphoretic, non-toxic, well developed, well nourished. 14:10 Head/Face: Normocephalic, atraumatic. cp 14:10 Eyes: Periorbital structures: appear normal, Conjunctiva: normal, no exudate, no injection, Sclera: no appreciated abnormality, Lids and lashes: appear normal, bilaterally. 14:10 ENT: External ear(s): are unremarkable, Nose: is normal, Posterior pharynx: Airway: no evidence of obstruction, patent. 14:10 Chest/axilla: Inspection: normal, Palpation: is normal, no crepitus, no tenderness. 14:10 Cardiovascular: Rate: normal, Rhythm: regular, Edema: is not appreciated, JVD: is not appreciated. 14:10 Respiratory: the patient does not display signs of respiratory distress, Respirations: normal, no use of accessory muscles, no retractions, labored breathing, is not present, Breath sounds: are clear throughout, no decreased breath sounds. 14:10 Abdomen/GI: Inspection: distension, that is mild, in the abdomen diffusely, Bowel sounds: active, all quadrants, Palpation: abdomen is soft and non-tender, in all quadrants, rebound tenderness, is not appreciated, voluntary guarding, is not appreciated, involuntary guarding, is not appreciated. 14:10 Back: pain, that is moderate, of the low back area, ROM is painful, with all movement. 14:10 Skin: no rash present. 14:10 Neuro: Orientation: to person, place \T\ time. Mentation: is normal, Motor: moves all fours, strength is normal, Sensation: is normal. 14:20 ECG was reviewed by the Attending Physician. cp Vital Signs: 13:49 BP 137 / 84; Pulse 80; Resp 18; Temp 98.2; Pulse Ox 96% on R/A; Weight 105.69 kg; ll1 Height 5 ft. 11 in. (180.34 cm); Pain 8/10; 14:00 BP 127 / 74; Pulse 79; Resp 16; Pulse Ox 98% on R/A; vg1 15:00 BP 122 / 73; Pulse 70; Resp 16; Pulse Ox 98% on R/A; vg1 16:04 BP 124 / 79; Pulse 67; Resp 12; Pulse Ox 98% on R/A; vg1 17:00 BP 148 / 85; Pulse 63; Resp 20; Pulse Ox 99% on R/A; vg1 18:00 BP 127 / 87; Pulse 62; Resp 14; Pulse Ox 99% on R/A; vg1 18:00 BP 130 / 84; Pulse 60; Resp 14; Temp 97.8; Pulse Ox 99% on R/A; vg1 13:49 Body Mass Index 32.50 (105.69 kg, 180.34 cm) ll1 MDM: 13:44 Patient medically screened. cp 16:15 Data reviewed: vital signs, nurses notes, lab test result(s), radiologic studies, CT cp scan. 16:15 Counseling: I had a detailed discussion with the patient and/or guardian regarding: the cp historical points, exam findings, and any diagnostic results supporting the discharge/admit diagnosis, lab results, radiology results. Response to treatment: the patient's symptoms have mildly improved after treatment. 07/04 13:59 Order name: Basic Metabolic Panel; Complete Time: 15:12 cp 07/04 16:04 Interpretation: Normal except: NA 127; CL 95; CO2 19; GLUC 726; CRE 1.50; GFR 60. cp 07/04 13:59 Order name: CBC with Diff; Complete Time: 15:01 cp 07/04 15:01 Interpretation: Normal except: RBC 4.03; HGB 12.4; HCT 37.7. cp 07/04 13:59 Order name: LFT's; Complete Time: 15:12 cp 07/04 16:05 Interpretation: Normal except: GLOB 4.3; A/G 0.9. cp 07/04 13:59 Order name: Magnesium; Complete Time: 15:12 cp 07/04 13:59 Order name: NT PRO-BNP; Complete Time: 15:12 cp 07/04 13:59 Order name: PT-INR; Complete Time: 15:01 cp 07/04 13:59 Order name: Troponin (emerg Dept Use Only); Complete Time: 15:12 cp 07/04 13:59 Order name: Lipase; Complete Time: 15:12 cp 07/04 13:59 Order name: Ketone, Serum; Complete Time: 15:12 cp 07/04 16:05 Interpretation: Abnormal: ACET MODERATE. cp 07/04 13:59 Order name: Urine Microscopic Only; Complete Time: 15:12 cp 07/04 14:40 Order name: Glucose, Ancillary Testing; Complete Time: 14:49 EDMS 03/ 14:50 Interpretation: Abnormal: GLUC,ANCIL > 500. cp 03/ 14:43 Order name: Urine Dipstick--Ancillary (enter results); Complete Time: 15:12 em1 07/04 15:23 Order name: ABG; Complete Time: 16:04 cp 03/ 16:04 Interpretation: Normal except: ABGPO2 107.0; ABGHCO3 20.2. cp 03/ 16:23 Order name: Procalcitonin cp 03/ 15:19 Order name: Abdomen ; Complete Time: 15:42 EDMS 03/ 15:32 Order name: XRAY Chest (1 view); Complete Time: 16:40 cp 03 16:23 Order name: Lactate cp 03/ 16:23 Order name: Blood Culture Adult (2) cp 03/ 16:24 Order name: Procalcitonin EDMS 03/ 16:24 Order name: Lactate EDMS 03 16:49 Order name: Glucose, Ancillary Testing; Complete Time: 17:59 EDMS 03/ 18:03 Order name: Glucose, Ancillary Testing EDMS 03/ 18:32 Order name: SARS-COV-2 RT PCR EDMS 03 19:21 Order name: Glucose, Ancillary Testing EDMS 03/ 20:23 Order name: Lactate Sepsis 2 HR Follow-up EDMS 03/ 13:59 Order name: EKG; Complete Time: 14:01 cp 03 13:59 Order name: Cardiac monitoring; Complete Time: 14:31 cp 03 13:59 Order name: EKG - Nurse/Tech; Complete Time: 14:31 cp 03 13:59 Order name: IV Saline Lock; Complete Time: 14:31 cp 03 13:59 Order name: Labs collected and sent; Complete Time: 14:31 cp 03/ 13:59 Order name: O2 Per Protocol; Complete Time: 14:01 cp 03 13:59 Order name: O2 Sat Monitoring; Complete Time: 14:01 cp 03 13:59 Order name: Accucheck Blood Glucose; Complete Time: 14:30 cp 03 13:59 Order name: Urine Dipstick-Ancillary (obtain specimen); Complete Time: 14:39 cp 03/04 16:20 Order name: Accucheck Blood Glucose; Complete Time: 16:49 cp EC:20 Rate is 72 beats/min. Rhythm is regular. DE interval is normal. QRS interval is cp prolonged at 110 msec. QT interval is normal. T waves are Inverted in lead aVR. Interpreted by me. Reviewed by me. Administered Medications: 14:30 Drug: NS 0.9% 1000 ml Route: IV; Rate: 1000 ml/hr; Site: left antecubital; vg1 17:04 Follow up: IV Status: Completed infusion vg1 14:30 Drug: TORadol - Ketorolac 15 mg Route: IVP; Site: left antecubital; vg1 16:17 Follow up: Response: Pain is decreased vg1 15:40 Drug: Insulin Regular Human 10 units {Co-Signature: corrine (Samantha Biggs RN).} Route: IVP; vg1 Site: left antecubital; 17:04 Follow up: Response: No adverse reaction vg1 16:14 Not Given (Patient Refused): [place] (7.5 mg-325 mg) 1 tabs PO once; RASS on ADMIN: vg1 Combtv4, Very Agttd3, Agttd2, Rstlss1, AlertClm0, Drwsy-1, Lt Sdtn-2, Mod Sdtn-3, Dp Sdtn-4, UnArsble-5 16:25 Drug: fentaNYL (PF) 50 mcg {Note: rass 0.} Route: IVP; Site: left antecubital; vg1 17:30 Follow up: Response: No adverse reaction; Pain is unchanged, physician notified vg1 17:00 Drug: Insulin Regular Human 10 units {Co-Signature: ss (Sola Glass RN).} Route: IVP; vg1 Site: left antecubital; 18:25 Follow up: Response: No adverse reaction vg1 17:00 Drug: NS 0.9% 1000 ml Route: IV; Rate: 1 bolus; Site: left antecubital; vg1 18:25 Follow up: IV Status: Completed infusion vg1 18:39 Drug: Insulin NPH-Regular Human Rec 70/30 20 units {Co-Signature: corrine (Samantha noriega RN).} Route: Sub-Q; Site: left lower abdomen; 20:34 Follow up: Response: No adverse reaction vg1 Disposition: 21:54 Co-signature as Attending Physician, Roger Posada MD I agree with the assessment and kdr plan of care. Disposition: 07/04/20 16:48 Hospitalization ordered by Ryan Kirby for Observation. Preliminary diagnosis is Diabetes mellitus due to underlying condition with ketoacidosis. - Bed requested for Telemetry/MedSurg (Inpatient). - Status is Observation. vg1 - Condition is Fair. - Problem is new. - Symptoms have improved. Signatures: Dispatcher [employer] EDMS Roger Posada MD MD kdr Mykel Calvert, COMBINATION BUILDING INSPECTOR-C COMBINATION BUILDING INSPECTOR-Cla1 Pepe Quiñonez PA PA cp Shabnam Sy, RN RN cg Stacey Sy RN RN vg1 Grant Huang RN RN 1 Samantha Biggs RN Sola Glass RN ss Corrections: (The following items were deleted from the chart) 15:19 14:01 Abdomen Pelvis W Con+CT.RAD.BRZ ordered. EDAR EDMS 17:42 16:24 CORONAVIRUS+MR.LAB.BRZ ordered. EDAR EDMS 17:57 16:48 Hospitalization Ordered by Ryan Kirby MD for Inpatient Admission. Preliminary la1 diagnosis is Diabetes mellitus due to underlying condition with ketoacidosis. Bed requested for Telemetry/MedSurg (Inpatient). Status is Inpatient Admission. Condition is Fair. Problem is new. Symptoms have improved. cp 20:01 17:57 07/04/2020 16:48 Hospitalization Ordered by Ryan Kirby MD for Observation. cg Preliminary diagnosis is Diabetes mellitus due to underlying condition with ketoacidosis. Bed requested for Telemetry/MedSurg (Inpatient). Status is Observation. Condition is Fair. Problem is new. Symptoms have improved. la1 21:28 20:01 07/04/2020 16:48 Hospitalization Ordered by Ryan Kirby MD for Observation. vg1 Preliminary diagnosis is Diabetes mellitus due to underlying condition with ketoacidosis. Bed requested for Telemetry/MedSurg (Inpatient). Status is Observation. Condition is Fair. Problem is new. Symptoms have improved. cg
--- NOTE | 2020-07-04 16:49 | ER ---
Nurse's Notes [facility] Name: Manfred Canales Jr Age: 50 yrs Sex: Male : 1970 Arrival Date: 07/04/2020 Time: 13:36 Bed 28 Private MD: Erick Fishman Diagnosis: Diabetes mellitus due to underlying condition with ketoacidosis Presentation: 07/04 13:49 Chief complaint: Patient states: Low back pain with frequent urination since April. ll1 States he has been out of all medications for about 1 years. Had labs drawn with Dr. Fishman 06/25/20. Glucose was 424, elevated triglycerides/cholesterol. HGB A1C 13.4. Coronavirus screen: Client denies travel out of the [place] in the last 14 days. At this time, the client does not indicate any symptoms associated with coronavirus-19. Ebola Screen: Patient denies travel to an Ebola-affected area in the 21 days before illness onset. Initial Sepsis Screen: Does the patient meet any 2 criteria? No. Patient's initial sepsis screen is negative. Does the patient have a suspected source of infection? Yes: Dysuria/Frequency/Urgency/UTI. Risk Assessment: Do you want to hurt yourself or someone else? Patient reports no desire to harm self or others. Onset of symptoms was April 16, 2020. 13:49 Method Of Arrival: Ambulatory [facility] 13:49 Acuity: ISABEL 2 ll1 Historical: - Allergies: 13:52 Morphine; ll1 - PMHx: 13:52 Diabetes - NIDDM; High Cholesterol; Myocardial infarction; Hypertension; Gout; ll1 - PSHx: 13:52 Disc fusion of 4-5 discs; Heart stents; CABG; Carpal Tunnel Repair; ll1 - Immunization history:: Flu vaccine status is unknown. - Social history:: Smoking status: Patient denies any tobacco usage or history of. Screenin:33 Abuse screen: Denies threats or abuse. Nutritional screening: No deficits noted. vg1 Tuberculosis screening: No symptoms or risk factors identified. Fall Risk No fall in past 12 months (0 pts). No secondary diagnosis (0 pts). IV access (20 points). Ambulatory Aid- None/Bed Rest/Nurse Assist (0 pts). Gait- Normal/Bed Rest/Wheelchair (0 pts) Mental Status- Oriented to own ability (0 pts). Total Mae Fall Scale indicates No Risk (0-24 pts). Assessment: 14:00 General: Appears in no apparent distress. comfortable, Behavior is calm, cooperative. vg1 Pain: Complains of pain in lower back Pain currently is 10 out of 10 on a pain scale. Neuro: Level of Consciousness is awake, alert, obeys commands, Oriented to person, place, time, situation, Reports blurred vision. Cardiovascular: Patient's skin is warm and dry. Respiratory: Airway is patent Respiratory effort is even, unlabored. GI: No signs and/or symptoms were reported involving the gastrointestinal system. : Reports urinating too often and frequency Denies burning with urination. EENT: No signs and/or symptoms were reported regarding the EENT system. Derm: Skin is intact, is healthy with good turgor. Musculoskeletal: Circulation, motion, and sensation intact. 15:41 Reassessment: Patient appears in no apparent distress at this time. No changes from vg1 previously documented assessment. Patient and/or family updated on plan of care and expected duration. Pain level reassessed. Patient is alert, oriented x 3, equal unlabored respirations, skin warm/dry/pink. 16:06 Reassessment: Patient appears in no apparent distress at this time. No changes from vg1 previously documented assessment. Patient and/or family updated on plan of care and expected duration. Pain level reassessed. Patient is alert, oriented x 3, equal unlabored respirations, skin warm/dry/pink. Patient stated back pain is still the same. Provider notified. 16:10 Reassessment: Received VO from YANG Bradshaw to administer [place] 7.5 mg/ 325 mg PO x1. vg1 18:28 Reassessment: Patient appears in no apparent distress at this time. No changes from vg1 previously documented assessment. Patient and/or family updated on plan of care and expected duration. Pain level reassessed. Patient is alert, oriented x 3, equal unlabored respirations, skin warm/dry/pink. States back pain is 9/10. Requesting more pain medication. Provider notified. 20:33 Reassessment: Attempted to call report. vg1 Vital Signs: 13:49 BP 137 / 84; Pulse 80; Resp 18; Temp 98.2; Pulse Ox 96% on R/A; Weight 105.69 kg; ll1 Height 5 ft. 11 in. (180.34 cm); Pain 8/10; 14:00 BP 127 / 74; Pulse 79; Resp 16; Pulse Ox 98% on R/A; vg1 15:00 BP 122 / 73; Pulse 70; Resp 16; Pulse Ox 98% on R/A; vg1 16:04 BP 124 / 79; Pulse 67; Resp 12; Pulse Ox 98% on R/A; vg1 17:00 BP 148 / 85; Pulse 63; Resp 20; Pulse Ox 99% on R/A; vg1 18:00 BP 127 / 87; Pulse 62; Resp 14; Pulse Ox 99% on R/A; vg1 18:00 BP 130 / 84; Pulse 60; Resp 14; Temp 97.8; Pulse Ox 99% on R/A; vg1 13:49 Body Mass Index 32.50 (105.69 kg, 180.34 cm) ll1 ED Course: 13:36 Patient arrived in ED. am2 13:36 Erick Fishman MD is Private Physician. am2 13:36 Pepe Quiñonez PA is PHCP. cp 13:36 Roger Posada MD is Attending Physician. cp 13:43 Pepe Quiñonez PA is PHCP. cp 13:43 Roger Posada MD is Attending Physician. cp 13:49 Arm band placed on Patient placed in an exam room, on a stretcher. ll1 13:52 Stacey Sy, RN is Primary Nurse. vg1 13:52 Triage completed. ll1 14:20 Initial lab(s) drawn, by me, sent to lab. EKG done, by ED staff, reviewed by Pepe Quiñonez Esme SORIA. 14:20 Inserted saline lock: 20 gauge in left antecubital area, using aseptic technique. Blood vg1 collected. 14:34 Patient has correct armband on for positive identification. Bed in low position. Call vg1 light in reach. Side rails up X 1. 14:40 Urine collected: clean catch specimen, clear. vg1 15:[address] via wheelchair. vg1 15:20 Abdomen In Process Unspecified. EDMS 16:17 XRAY Chest (1 view) In Process Unspecified. EDMS 16:40 Initial lab(s) drawn, by me, sent to lab. First set of blood cultures drawn by me. vg1 16:47 Ryan Kirby MD is Hospitalizing Provider. cp 20:31 No provider procedures requiring assistance completed. Patient admitted, IV remains in vg1 place. Administered Medications: 14:30 Drug: NS 0.9% 1000 ml Route: IV; Rate: 1000 ml/hr; Site: left antecubital; vg1 17:04 Follow up: IV Status: Completed infusion vg1 14:30 Drug: TORadol - Ketorolac 15 mg Route: IVP; Site: left antecubital; vg1 16:17 Follow up: Response: Pain is decreased vg1 15:40 Drug: Insulin Regular Human 10 units {Co-Signature: corrine (Samantha Biggs RN).} Route: IVP; vg1 Site: left antecubital; 17:04 Follow up: Response: No adverse reaction vg1 16:14 Not Given (Patient Refused): [place] (7.5 mg-325 mg) 1 tabs PO once; RASS on ADMIN: vg1 Combtv4, Very Agttd3, Agttd2, Rstlss1, AlertClm0, Drwsy-1, Lt Sdtn-2, Mod Sdtn-3, Dp Sdtn-4, UnArsble-5 16:25 Drug: fentaNYL (PF) 50 mcg {Note: rass 0.} Route: IVP; Site: left antecubital; vg1 17:30 Follow up: Response: No adverse reaction; Pain is unchanged, physician notified vg1 17:00 Drug: Insulin Regular Human 10 units {Co-Signature: winnie (Sola Glass RN).} Route: IVP; vg1 Site: left antecubital; 18:25 Follow up: Response: No adverse reaction vg1 17:00 Drug: NS 0.9% 1000 ml Route: IV; Rate: 1 bolus; Site: left antecubital; vg1 18:25 Follow up: IV Status: Completed infusion vg1 18:39 Drug: Insulin NPH-Regular Human Rec 70/30 20 units {Co-Signature: corrine (Samantha noriega RN).} Route: Sub-Q; Site: left lower abdomen; 20:34 Follow up: Response: No adverse reaction vg1 Intake: 17:00 IV: 1000ml (IV Fluid); Total: 1000ml. vg1 Output: 15:03 Urine: 400ml (Voided); Total: 400ml. vg1 19:08 Urine: 400ml (Voided); Total: 800ml. vg1 Outcome: 16:48 Decision to Hospitalize by Provider. cp 21:10 Admitted to Tele accompanied by tech, via wheelchair, room 206, with chart, Report vg1 called to ANASTASIIA Fairchild 21:10 Condition: stable 21:10 Condition: good 21:10 Instructed on the need for admit. 21:28 Patient left the ED. vg1 Signatures: Dispatcher [employer] EDMS Pepe Quiñonez PA PA cp Moreno, Amanda am2 Stacey Sy, RN RN vg1 Grant Huang RN RN 1 Samantha Biggs RN Sola Glass RN ss
--- NOTE | 2020-07-04 18:07 | P.HP ---
Certification for Inpatient Patient admitted to: Observation With expected LOS: <2 Midnights Practitioner: I am a practitioner with admitting privileges, knowledge of patient current condition, hospital course, and medical plan of care. Services: Services provided to patient in accordance with Admission requirements found in Title 42 Section 412.3 of the Code of Federal Regulations Patient History Date of Service: 07/04/20 Reason for admission: Hyperglycemia History of Present Illness: 50yo M, PMH: CAD s/p stents & CABG, HTN, Gout, presents to ED due to high blood sugar. He has been having frequent urination and dry mouth - drinking lots of fluids. He reports this has been going on for past 2 months and not improving. He has not been checking his glucose at home due to pain from fingerstick. He has history of chronic pain / neuropathy. He has had insurance issues and was off his medications for several months, recently restarted 1 month ago. He does not follow a diabetic diet. He denies and fever, nausea, vomiting, diarrhea, abdominal pain, chest pain, shortness of breath, dysuria. Workup in ED revealed mild anemia, mild hyponatremia, non-anion gap, mildly elevated creatinine 1.5, glucose: 726, lactate 2.6, negative pro calcitonin. Normal UA Allergies No Known Drug Allergies Allergy (Unverified 05/30/14 19:46) Unknown No Known Allergies Allergy (Uncoded 07/30/16 05:04) Unknown Home Medications: Aspirin 325 mg PO DAILY 02/19/12 Fenofibrate [Lofibra] 134 mg PO DAILY 02/19/12 Atorvastatin Calcium [Lipitor] 80 mg PO DAILY 07/18/13 B Complex with Vitamin C [Super B Complex with C] 1 tab PO DAILY 07/18/13 Cinnamon Bark [Cinnamon] 1,000 mg PO BID 07/18/13 Clopidogrel Bisulfate [Plavix] 75 mg PO DAILY 07/18/13 [place]-3 Fatty Acids [Fish Oil] 1,200 mg PO BID 07/18/13 Parsley/Garlic [Garlic & Parsley Tablet] 500 mg PO BID 07/18/13 Ubidecarenone [Co Q-10] 200 mg PO DAILY 07/18/13 Metoprolol Succinate 1 tab PO DAILY 10/28/13 - Past Medical/Surgical History Diabetic: No -: AR -: Hyperlipidemia -: HTN -: Rhabdomyolysis -: DM2 -: Heart Cath -: CABG -: Hematoma Repair -: Carpal Tunnel/Torn Ligament -: Herniated Disc in Neck Sx - Family History Family History: Reviewed- Non-Contributory - Social History Smoking Status: Never smoker Alcohol use: No CD- Drugs: No Caffeine use: No Place of Residence: Home Review of Systems 10-point ROS is otherwise unremarkable Physical Examination - Studies Laboratory Data (last 24 hrs) 07/04/20 14:23: PT 11.7, INR 1.02 07/04/20 14:23: WBC 5.80, Hgb 12.4 L, Hct 37.7 L, Plt Count 281 07/04/20 14:23: Sodium 127 L, Potassium 4.8, BUN 15, Creatinine 1.50 H, Glucose 726 H*, Magnesium 2.3, Total Bilirubin 0.6, AST 17, ALT 31, Alkaline Phosphatase 104, Lipase 287 Assessment and Plan - Advance Directives Does patient have a Living Will: No Does patient have a Durable POA for Healthcare: No Physician Review Additional Text: Physical Exam: Gen: NAD HEENT: Normal conjunctiva, sclerae anicteric CV: RRR, no m/r/g Pulm: CTAB no w/r/r Abd: soft, NTND Ext: no edema, no rash Neuro: AAOx3 Problem List: Hyperglycemia Uncontrolled diabetes mellitus type 2; A1c: 13.4 ~2 weeks ago Hypertension CAD s/p CABG x3 Gout Chronic pain Carpal tunnel syndrome -Will monitor overnight in ICU, frequent Accu-Cheks, will give NPH, sliding scale -received 2 L normal saline in the ED, continue at 150ml/hr -non-anion gap -recheck BMP in a few hours -patient tolerating PO -will need insulin on discharge VTE: lovenox Code: full Dispo: anticipate Time Spent Managing Pts Care (In Minutes): 60
[2020-07-04] MEDS ORDERED: INSULIN 70/30 100 UNITS/ML SQ ONE (18:49)
[2020-07-04] MEDS ORDERED: GLUCAGON 1 MG/VIAL IM PRN (21:33)
[2020-07-04] MEDS ORDERED: INSULIN -REGULAR HUMAN 50 UNIT/0.5 ML ML SQ SCH (21:33)
[2020-07-04] MEDS ORDERED: ACETAMINOPHEN 500 MG TAB PO PRN (21:33)
[2020-07-04] MEDS ORDERED: ONDANSETRON 4 MG/2 ML VIAL IV PRN (21:33)
[2020-07-04] MEDS ORDERED: D50W 25 GM/50 ML SYRINGE IV PRN (21:33)
[2020-07-04 22:13] VITALS: BMI 33.5
[2020-07-04] MEDS: NA CHLORIDE 0.9% 1,000 ML IV SCH (22:25)
[2020-07-04] MEDS ORDERED: HYDROCODONE/APAP 7.5/325 MG TAB PO PRN (22:35)
[2020-07-04] MEDS ORDERED: TRAMADOL HCL 50 MG TAB PO PRN (22:35)
[2020-07-04 22:57] VITALS: O2SAT 99
[2020-07-04 23:57] LABS: Urine Appearance CLEAR; Urine Bilirubin NEGATIVE (NEG); Urine Blood NEGATIVE (NEG); Urine Color YELLOW; Urine Glucose 3+ (NEG); Urine Protein NEGATIVE (NEG); Urine Specific Gravity >=1.030 (1.005-1.030); Urine Urobilinogen 0.2 mg/dL (0.2-1.0); Urine pH 5.5 (5.0-7.0)
[2020-07-04 23:59] LABS: Urine Microscopic Reflex NO UMIC
[2020-07-05] MEDS: NA CHLORIDE 0.9% 1,000 ML IV SCH (05:01)
[2020-07-05 06:19] LABS: Absolute Lymphocytes (CBC) 3.3 K/uL (0.7-4.9); Basophils % 0.7 % (0-1.3); Hematocrit 32.3 % (39.6-49.0); Lymphocytes % 52.3 % (15.3-44.8); MPV 9.4 fL (7.6-11.3); RBC Red Blood Cell Count 3.55 M/uL (4.33-5.43)
[2020-07-05 06:45] LABS: ALT/SGPT 23 U/L (12-78); AST/SGOT 12 U/L (15-37); Albumin 3.1 g/dL (3.4-5.0); Alkaline Phosphatase 74 U/L (45-117); BUN Blood Urea Nitrogen 14 mg/dL (7-18); Bicarbonate 24 mmol/L (21-32); Bilirubin Total 0.5 mg/dL (0.2-1.0); Glucose Level 210 mg/dL (74-106); HDL Cholesterol 30 mg/dL (40-60); Magnesium 2.3 mg/dL (1.8-2.4); Potassium 4.1 mmol/L (3.5-5.1); Protein, Total 6.8 g/dL (6.4-8.2); Sodium Level 139 mmol/L (136-145)
[2020-07-05 07:19] LABS: LDL, Direct 123 mg/dL (100-129)
[2020-07-05] MEDS ORDERED: INFLUENZA VACCINE (for 3y+) 0.5 ML DOSE IMVAC ONE (08:00)
[2020-07-05] MEDS ORDERED: INSULIN 70/30 100 UNITS/ML SQ SCH ×2 (08:00→17:00)
[2020-07-05 08:19] VITALS: BP 129/68; TEMP 97.2
--- NOTE | 2020-07-05 08:21 | P.DS ---
Admission Date: 07/04/20 Discharge Date: 07/05/20 Disposition: ROUTINE DISCHARGE Discharge Condition: GOOD Reason for Admission: Hyperglycemia Procedures: CXR (07/04): No acute intrathoracic process suspected. CT Abd/Pelvis (07/04): No acute intra-abdominal or pelvic findings. Prominent fecal retention throughout the colon. Problem List: Hyperglycemia secondary to Uncontrolled diabetes mellitus type 2; A1c: 13.4 ~2 weeks ago TIMUR secondary to dehydration Hypertension CAD s/p CABG x3 Gout Chronic pain Carpal tunnel syndrome Brief History of Present Illness: 50yo M, PMH: CAD s/p stents & CABG, HTN, Gout, presents to ED due to high blood sugar. He has been having frequent urination and dry mouth - drinking lots of fluids. He reports this has been going on for past 2 months and not improving. He has not been checking his glucose at home due to pain from fingerstick. He has history of chronic pain / neuropathy. He has had insurance issues and was off his medications for several months, recently restarted 1 month ago. He does not follow a diabetic diet. He denies and fever, nausea, vomiting, diarrhea, abdominal pain, chest pain, shortness of breath, dysuria. Workup in ED revealed mild anemia, mild hyponatremia, non-anion gap, mildly elevated creatinine 1.5, glucose: 726, lactate 2.6, negative pro calcitonin. Normal UA Hospital Course: Patient was given 10units IV insulin in the ED, and continued on 70/30. He responded well to insulin and the following morning his glucose was <200. He was hydrated with IVF, had improvement of his renal function (Cr: 1.5 -> 0.9). He reported feeling much better the following morning, slept well. He was counselled on importance of compliance with medication and diet. He is disc harged home with lantus and to check his glucose at home. Patient expressed understanding and agreement with plan. He did state he might try to see his PCP today/tomorrow to further discuss. Otherwise, I advised to f/u with PCP in ~3-5 days with glucose log. There is significant concern for noncompliance and this was discussed with his PCP. Vital Signs/Physical Exam: Physical Exam: Gen: NAD HEENT: Normal conjunctiva, sclerae anicteric CV: regular rate and rhythm, no murmur appreciated Pulm: CTAB no w/r/r Abd: soft, NTND Ext: no edema, no rash Neuro: AAOx3, ambulating well Temp Pulse Resp BP Pulse Ox 97.2 F 66 18 129/68 96 07/05/20 08:00 07/05/20 08:00 07/05/20 08:00 07/05/20 08:00 07/05/20 08:00 Laboratory Data at Discharge: WBC 6.30 K/uL (4.3-10.9) 07/05/20 05:51 Hgb 11.1 g/dL (13.6-17.9) L 07/05/20 05:51 Hct 32.3 % (39.6-49.0) L 07/05/20 05:51 Plt Count 256 K/uL (152-406) 07/05/20 05:51 PT 11.7 SECONDS (9.5-12.5) 07/04/20 14:23 INR 1.02 07/04/20 14:23 Sodium 139 mmol/L (136-145) 07/05/20 05:51 Potassium 4.1 mmol/L (3.5-5.1) 07/05/20 05:51 BUN 14 mg/dL (7-18) 07/05/20 05:51 Creatinine 0.91 mg/dL (0.55-1.3) 07/05/20 05:51 Glucose 210 mg/dL (74-106) H 07/05/20 05:51 Magnesium 2.3 mg/dL (1.8-2.4) 07/05/20 05:51 Total Bilirubin 0.5 mg/dL (0.2-1.0) 07/05/20 05:51 AST 12 U/L (15-37) L 07/05/20 05:51 ALT 23 U/L (12-78) 07/05/20 05:51 Alkaline Phosphatase 74 U/L (45-117) 07/05/20 05:51 Triglycerides 423 mg/dL (<150) H 07/05/20 05:51 Cholesterol 223 mg/dL (<200) H 07/05/20 05:51 LDL Cholesterol Direct 123 mg/dL (100-129) 07/05/20 05:51 HDL Cholesterol 30 mg/dL (40-60) L 07/05/20 05:51 Cholesterol/HDL Ratio 7.43 07/05/20 05:51 Lipase 287 U/L (73-393) 07/04/20 14:23 Home Medications: Insulin Glargine,Hum.rec.anlog [Lantus Solostar] 30 unit SQ DAILY AT SUPPER 30 Days #12 ml 07/05/20 RX: Allopurinol 1 tab PO DAILY 07/05/20 RX: Clopidogrel Bisulfate [Plavix] 1 tab PO DAILY 07/05/20 RX: Isosorbide Mononitrate [Isosorbide Mononitrate ER] 1 tab PO DAILY 07/05/20 RX: Lisinopril [Zestril] 1 tab PO BID 07/05/20 RX: Metoprolol Tartrate [Lopressor] 1 tab PO DAILY 07/05/20 RX: Rosuvastatin Calcium [Crestor] 1 tab PO DAILY 07/05/20 New Medications: Insulin Glargine,Hum.rec.anlog [Lantus Solostar] 30 unit SQ DAILY AT SUPPER 30 Days #12 ml Physician Discharge Instructions: You were found to have very glucose - 700. You were treated with insulin and improved. You are discharged with insulin. Please check your glucose levels at least once in the morning, and would recommend checking a second time before bedtime, at least until you follow up with your PCP. You were dehydrated as well and this improved with IV fluids. Diet: ADA Activity: Ad arben Followup: Erick Fishman MD [Primary Care Provider] - Time spent managing pt's care (in minutes): 45
[2020-07-05] MEDS ORDERED: ENOXAPARIN 40 MG/0.4 ML SQ SCH (09:00)
[2020-07-05 09:52] LABS: Platelet Estimate ADEQ
[2020-07-05 09:53] LABS: Blood Morphology Comment NOT SEEN (NOT SEEN)
== END 2020-07-05 09:25 | disposition home or self-care (01) ==
LOC: ER 13:33 → ERHOLD 17:58 → 2ND 21:13
PROVIDERS: ADMIT Hospitalist; ATTEND Hospitalist
DX: E11.65 Type 2 diabetes mellitus with hyperglycemia (principal); N17.9 Acute kidney failure, unspecified; E86.0 Dehydration; I10 Essential (primary) hypertension; I25.10 Atherosclerotic heart disease of native coronary artery without angina pectoris; Z20.822 Contact with and (suspected) exposure to COVID-19; Z95.1 Presence of aortocoronary bypass graft; M10.9 Gout, unspecified; G89.29 Other chronic pain; Z95.5 Presence of coronary angioplasty implant and graft; I25.2 Old myocardial infarction; E78.5 Hyperlipidemia, unspecified; E78.00 Pure hypercholesterolemia, unspecified
CPT/HCPCS: 93005; 87040; 85025 ×2; 80048; 36415; 82010; 83721; 83735 ×2; 85610; 80061; 82947 ×7; 80076; 83605 ×2; 84443; 84484; 84439; 83690; 80053; 84145; 83880; 74176; 71045; 82805; U0003; J3010; J7030 ×4; 81003; 81015; 96361; 96372; 96374; 96375; 99285; G0378; J1815

== ENCOUNTER 2020-11-29 16:00 | Emergency (ER) | payer OTHER ==
--- OUTSIDE RECORDS SUMMARY | 2020-11-29 16:04 | XMS REPORT | Continuity of Care Document ---
:1970 Author Organization [facility] t Address [address] [place] [address] Care Team Providers Name Role Phone Viktoria ALLRED, L Attending Clinician Problems Condition Condition Condition Status Onset Resolution Last Treating Co mments Source Name Details Category Date Date Treatment Clinician Date Pure Problem Active 2020-09-03 Memor ia hyperchole 02:45:14 l sterolemia Pure [place] n hyperchole sterolemia Active Problem 09/03/2020 Ahmed Ahmed Atheroscle Problem Active 2020-09-03 M emoria r-limb&cla 02:45:14 l udic [place] Atheroscle r-limb&cla udic Active Problem 09/03/2020 Ghazalmed Ahmed Hx of CABG Diagnosis Active 2019-11-04 Memoria 02:53:17 l Hx of Uri CABG Active Diagnosis 11/04/2019 Ahmed Ahmed Pre-operat Diagnosis Active 2019-11-04 Memoria harriett 02:53:17 l cardiovasc [place] n ular Pre-operat examinatio harriett n cardiovasc ular examinatio n Active Diagnosis 11/04/2019 Ahmed Ahmed Shortness Diagnosis Active 2019-11-04 Memoria of breath 02:53:17 l [place] Shortness of breath Active Diagnosis 11/04/2019 Ahmed Ahmed Atheroscle Diagnosis Active 2019-11-04 Memoria r of 02:53:17 l [place] Uri artery of Atheroscle both legs r of with [place] intermit artery of claudicati both legs on with intermit claudicati on Active Diagnosis 11/04/2019 Ness Arzola Atheroscle Diagnosis Active 2019-11-04 Memoria rosis of 02:53:17 l coronary Uri artery Atheroscle bypass rosis of graft of coronary [place] artery heart with bypass stable graft of angina [place] pectoris heart with stable angina pectoris Active Diagnosis 11/04/2019 Ness Arzola Other Diagnosis Active 2019-11-04 Mem oria symptoms 02:53:17 l involving Other [place] n cardiovasc symptoms ular involving system cardiovasc ular system Active Diagnosis 11/04/2019 Ness Arzola DM w/o Problem Active 2020-09-03 Memor ia complicati 02:45:14 l on type DM w/o Uri II, 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, uncontroll ed Active Problem Ness Arzola Benign Problem Active 2020-09-03 Memor ia hypertensi 02:45:14 l ve heart Benign [place] n disease hypertensi without ve heart congestive disease heart without failure congestive heart failure Active Problem 09/03/2020 Ness Arzola Reflux Problem Active 2020-09-03 Memor ia esophagiti 02:45:14 l s Reflux Uri esophagiti s Active Problem 09/03/2020 Ness Arzola Precordial Diagnosis Active 2020-09-03 Memoria pain 02:45:14 l Uri Precordial pain Active Diagnosis 09/03/2020 Ness Arzola Allergies, Adverse Reactions, Alerts This patient has no known allergies or adverse reactions. Medications Ordered Filled Start Stop Current Ordering Indication Dosage Frequency Signature Comments Components Source Medication Medication Date Date Medication? Clinician (SIG) Name Name Isosorbide Yes Ahmed 1 tablet Me moria Mononitrate - Ahmed l CR 02:45: Uri 14 Plavix Yes Ahmed 1 tablet Memori a 5- Ahmed l 02:45: [place] 14 Crestor Yes Ahmed 1 tablet Memor ia 4-27 Ahmed l 02:45: [place] 16 Lisinopril 2020-0 Yes Ahmed 1 tablet Me moria - Ahmed l 02:53: Uri 17 Super B 2020-0 Yes Ahmed not Memoria Complex - Ahmed defined l 02:53: Uri 17 Metoprolol 2020-0 Yes Ahmed 1/2 tablet Memoria Tartrate 11-03 Ahmed l 02:53: Uri Aspirin 2020-0 Yes Ahmed 1 tablet Memor ia 11-03 Ahmed l 02:53: Uri 17 Pro Air 2020-0 Yes Ahmed as direct Samuel mike 11-03 Ahmed l 02:53: Uri Lantus 2019-0 Yes Ahmed not Memoria SoloStar 11-03 Ahmed defined l 02:53: Uri Tessalon 2019-0 Yes Ahmed 1 capsule Mem oria Perles 11-03 Ahmed as needed l 02:53: Uri Vitamin C 2019-0 Yes Ahmed not Memoria 11-03 Ahmed defined l 02:53: Uri Lovaza 2019-0 Yes Ahmed 4 capsules Samuel mike 11-03 Ahmed l 02:53: Uri Nexium 2019-0 Yes Ahmed 1 capsule Memor ia 11-03 Ahmed l 02:53: Uri Allopurinol 2019-0 Yes Ahmed 1 tablet M emoria 11-03 Ahmed l 02:53: Uri 17 Azithromyci 2019-0 Yes Ahmed 2 tablets Memoria n 11-03 Ahmed on the l 02:53: first day, Uri 17 then 1 tablet daily for 4 days Multivitami 2020-0 Yes Ahmed as direct Memoria n 11-03 Ahmed l 02:53: Uri Plavix 2019-0 Yes Ahmed 1 tablet Memori a 11-03 Ahmed l 02:53: Uri Januvia 2019-0 Yes Ahmed 1 tablet Memor ia 11-03 Ahmed l 02:53: Uri 17 Metformin 2019-0 Yes Ahmed 1 tablet Mem oria HCl 11-03 Ahmed with a l 02:53: meal Uri 17 Vitamin C Yes Ahmed not Memoria 08-23 Ahmed defined l 03:16: Uri 57 Vital Signs Vital Name Observation Time Observation Value Comments Source [facility] 2019-03-13 15:30:00 [facility] [place] Diastolic (mm Hg) 2019-03-13 15:30:00 Mem orial [place] Systolic (mm Hg) 2019-03-13 15:30:00 Samuel rial [place] Weight 2018-04-05 16:30:00 [facility] [place] Heart Rate 2018-04-05 16:30:00 [facility] Diastolic (mm Hg) 2018-04-05 16:30:00 Mem orial [place] Systolic (mm Hg) 2018-04-05 16:30:00 Samuel rial Uri Weight 2018-03-09 18:15:00 [facility] Heart Rate 2018-03-09 18:15:00 [facility] Diastolic (mm Hg) 2018-03-09 18:15:00 Mem orial [place] Systolic (mm Hg) 2018-03-09 18:15:00 Samuel rial Uri Weight 2017-05-05 16:45:00 [facility] [place] Heart Rate 2017-05-05 16:45:00 [facility] Diastolic (mm Hg) 2017-05-05 16:45:00 Mem orial [place] Systolic (mm Hg) 2017-05-05 16:45:00 Samuel rial Uri Weight 2017-04-15 17:30:00 [facility] Heart Rate 2017-04-15 17:30:00 [facility] [place] Diastolic (mm Hg) 2017-04-15 17:30:00 Mem orial [place] Systolic (mm Hg) 2017-04-15 17:30:00 Samuel rial [place] Procedures This patient has no known procedures. Encounters Start End Encounter Admission Attending Care Care Encounter Source Date/Time Date/Time Type Type Clinicians Facility Department ID 2020-09-02 2020-09-02 Outpatient franca Arzola [id number] [facility] 12:52:00 12:52:00 Cardiolog Cardiology a Melodie Cho 2020-08-26 2020-08-26 Outpatient Ness Arzola [id number] [facility] 12:21:00 12:21:00 Cardiolog Cardiology berkley Cho 2020-08-21 2020-08-21 Outpatient Ness Arzola [id number] [facility] 09:27:00 09:27:00 Cardiolog Cardiology [facility] Cho 2020-01-22 2020-01-22 Office PRATIK Blum [id number] 15:08:06 15:28:47 Visit [facility] [id number] Formerly [facility] [id number] es [address] Mai 2019-03-13 2019-03-13 Outpatient med Ahmed [id number] [facility] 10:30:00 10:30:00 [facility] 2018-06-06 2018-06-06 Outpatient med Ahmed [id number] [facility] 10:02:00 10:02:00 [facility] 2018-04-05 2018-04-05 Outpatient med Ahmed [id number] [facility] 11:30:00 11:30:00 [facility] 2018-03-11 2018-03-11 Outpatient med Ahmed [id number] [facility] 09:34:00 09:34:00 [facility] 2018-03-11 2018-03-11 Outpatient med Ahmed [id number] [facility] 08:44:00 08:44:00 [facility] 2018-03-09 2018-03-09 Outpatient med Ahmed [id number] [facility] 13:15:00 13:15:00 [facility] 2017-05-05 2017-05-05 Outpatient med med [id number] [facility] 10:45:00 10:45:00 [facility] 2017-04-15 2017-04-15 Outpatient med Ahmed [id number] [facility] 11:30:00 11:30:00 [facility] Results This patient has no known results.
[2020-11-29 16:45] LABS: Absolute Lymphocytes (CBC) 2.7 K/uL (0.7-4.9); Basophils % 1.3 % (0-1.3); Hematocrit 43.8 % (39.6-49.0); Lymphocytes % 42.4 % (15.3-44.8); MPV 9.1 fL (7.6-11.3); RBC Red Blood Cell Count 4.68 M/uL (4.33-5.43)
[2020-11-29] MEDS ORDERED: NA CHLORIDE 0.9% 1,000 ML ONE (17:02)
[2020-11-29 17:09] LABS: ALT/SGPT 73 U/L (12-78); AST/SGOT 36 U/L (15-37); Albumin 4.2 g/dL (3.4-5.0); Alkaline Phosphatase 102 U/L (45-117); BUN Blood Urea Nitrogen 22 mg/dL (7-18); Bicarbonate 20 mmol/L (21-32); Bilirubin Direct 0.1 mg/dL (0-0.2); Bilirubin Total 0.5 mg/dL (0.2-1.0); Lipase 309 U/L (73-393); Magnesium 2.3 mg/dL (1.8-2.4); Potassium 5.2 mmol/L (3.5-5.1); Protein, Total 8.8 g/dL (6.4-8.2); Sodium Level 127 mmol/L (136-145)
[2020-11-29 17:10] LABS: Glucose Level 632 mg/dL (74-106)
[2020-11-29] MEDS ORDERED: INSULIN -REGULAR HUMAN 50 UNIT/0.5 ML ML ONE ×2 (17:26→18:53)
[2020-11-29 17:41] LABS: Urine Blood Negative (Negative); Urine Glucose 2+ (Negative); Urine Protein Negative (Negative); Urine pH 5.5 (5.0-7.0)
[2020-11-29] MEDS ORDERED: FENTANYL CITR 100 MCG/2 ML ONE (17:44)
[2020-11-29 18:16] LABS: Urine Bacteria <20 /HPF (NONE SEEN); Urine RBC <5 /HPF (NONE SEEN)
[2020-11-29 19:21] LABS: Urine Appearance CLEAR (Clear); Urine Bilirubin NEGATIVE (Negative); Urine Blood NEGATIVE (Negative); Urine Color YELLOW (Yellow); Urine Glucose 3+ (Negative); Urine Protein NEGATIVE (Negative); Urine Specific Gravity >=1.030 (1.005-1.030); Urine Urobilinogen 0.2 mg/dL (0.2-1.0); Urine pH 5.5 (5.0-7.0)
[2020-11-29 19:22] LABS: Urine Microscopic Reflex NO UMIC
[2020-11-29 20:37] LABS: Potassium 4.5 mmol/L (3.5-5.1)
--- NOTE | 2020-11-29 20:47 | EDPHYS ---
Physician Documentation [facility] Name: Manfred Canales Jr Age: 50 yrs Sex: Male : 1970 Arrival Date: 11/29/2020 Time: 16:05 Bed 28 Private MD: ED Physician Pepe Rodriguez HPI: 11/29 16:30 This 50 yrs old Black Male presents to ER via Ambulatory with complaints of High Blood cp Sugar. 16:30 The patient or guardian reports hyperglycemia, that was potentially precipitated by no cp particular event. 16:30 Onset: The symptoms/episode began/occurred gradually. cp 16:30 Current symptoms: In the emergency department the patient's symptoms are unchanged from cp the initial presentation, despite home interventions. Patient reports having lumbar injections performed last Wednesday that may have contributed to his elevated sugars. Patient denies chest pain. Denies abdominal pain. Patient reports he takes Januvia for his diabetes and has done injections in the past but stopped them on advice from his physician as his physician felt like he did not need the insulin injections to control his sugars at that point.. Historical: - Allergies: 16:19 Morphine; "dont work on me"; tw2 - Home Meds: 16:19 allopurinol 100 mg Oral tab 1 tab once daily [Active]; Plavix 75 mg Oral tab 1 tab once tw2 daily [Active]; metformin 850 mg Oral tab 1 tab 3 times per day [Active]; Januvia 100 mg Oral tab 1 tab once daily [Active]; lovastatin 40 mg Oral tab 1 tab once daily [Active]; aspirin 81 mg Oral TbEC 1 tab once daily [Active]; amlodipine 10 mg tab 1 tab once daily [Active]; - PMHx: 16:19 Diabetes - NIDDM; High Cholesterol; Hypertension; Myocardial infarction; Gout; tw2 - Immunization history:: Adult Immunizations Client reports having NOT received the Covid vaccine. - Social history:: Smoking status: Patient denies any tobacco usage or history of. ROS: 16:35 Eyes: Negative for injury, pain, redness, and discharge. cp 16:35 Constitutional: Negative for body aches, chills, fever, poor PO intake. 16:35 ENT: Negative for ear pain, sore throat, difficulty swallowing, difficulty handling secretions. 16:35 Neck: Negative for stiffness. 16:35 Cardiovascular: Negative for chest pain, edema, palpitations. 16:35 Respiratory: Negative for cough, shortness of breath, wheezing. 16:35 Abdomen/GI: Negative for abdominal pain, nausea, vomiting, and diarrhea, constipation. 16:35 Back: Positive for chronic pain. 16:35 Skin: Negative for rash. 16:35 Neuro: Negative for altered mental status, headache, numbness, syncope, weakness. 16:35 All other systems are negative. Exam: 16:40 Constitutional: The patient appears in no acute distress, alert, awake, cp non-diaphoretic, non-toxic, well developed, well nourished, obese. 16:40 Head/Face: Normocephalic, atraumatic. cp 16:40 Eyes: Periorbital structures: appear normal, Conjunctiva: normal, no exudate, no injection, Sclera: no appreciated abnormality, Lids and lashes: appear normal, bilaterally. 16:40 ENT: External ear(s): are unremarkable, Nose: is normal, Mouth: Lips: moist, Oral mucosa: pink and intact, moist, Posterior pharynx: Airway: no evidence of obstruction, patent. 16:40 Neck: ROM/movement: is normal, is supple, without pain, no range of motions limitations. 16:40 Chest/axilla: Inspection: normal, Palpation: is normal, no crepitus, no tenderness. 16:40 Cardiovascular: Rate: normal, Rhythm: regular, Edema: is not appreciated, JVD: is not appreciated. 16:40 Respiratory: the patient does not display signs of respiratory distress, Respirations: normal, no use of accessory muscles, no retractions, labored breathing, is not present, Breath sounds: are clear throughout, no decreased breath sounds, no stridor, no wheezing. 16:40 Abdomen/GI: Inspection: abdomen appears normal, Palpation: abdomen is soft and non-tender, in all quadrants. 16:40 Back: pain, that is moderate, of the low back area and mid back area, ROM is painful, with all movement, vertebral tenderness, is not appreciated. 16:40 Skin: cellulitis, is not appreciated, no rash present. 16:40 Neuro: Orientation: is normal, Mentation: is normal, Motor: moves all fours, strength is normal, Sensation: no obvious gross deficits, Gait: is steady. 17:02 ECG was reviewed by the Attending Physician. Vital Signs: 16:17 BP 138 / 95; Pulse 77; Resp 18; Temp 97.9(TE); Pulse Ox 99% on R/A; Weight 108.86 kg tw2 (R); 16:44 BP 155 / 91; Pulse 75; Resp 16; Pulse Ox 98% ; zb 17:53 BP 122 / 93; Pulse 87; Resp 16; Pulse Ox 98% on R/A; zb 18:41 BP 121 / 74; Pulse 84; Resp 16; Pulse Ox 100% on R/A; zb 20:21 BP 127 / 98; Pulse 74; Resp 16; Pulse Ox 100% on R/A; zb MDM: 16:26 Patient medically screened. [facility] 20:45 Data reviewed: vital signs, nurses notes, lab test result(s), EKG. 20:45 Test interpretation: by ED physician or midlevel provider: ECG. 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 Response to treatment: the patient's symptoms have markedly improved after treatment, and as a result, I will discharge patient. ED course: VSS. Blood glucose markedly improved. Patient reports having previously prescribed insulin to resume taking. Will discharge to home for continued monitoring. 11/29 16:29 Order name: Glucose, Ancillary Testing; Complete Time: 16:32 EDMS 11/29 16:33 Order name: Basic Metabolic Panel 11/29 16:33 Order name: CBC with Diff; Complete Time: 17:22 11/29 16:33 Order name: Hepatic Function; Complete Time: 17:22 11/29 17:26 Interpretation: Normal except: TP 8.8; GLOB 4.6; A/G 0.9. 11/29 16:33 Order name: Lipase; Complete Time: 17:22 11/29 16:33 Order name: Ketone, Serum; Complete Time: 17:22 11/29 16:33 Order name: Magnesium; Complete Time: 17:22 11/29 16:34 Order name: Basic Metabolic Panel; Complete Time: 17:22 EDMS 11/29 17:22 Interpretation: Normal except: NA 127; K 5.2; CL 95; CO2 20; GLUC 632; BUN 22; CRE cp 1.53; GFR 58. 11/29 16:47 Order name: Troponin I; Complete Time: 17:22 11/29 17:27 Order name: Urine Microscopic Only; Complete Time: 19:26 11/29 19:15 Interpretation: Reviewed. 11/29 17:27 Order name: Urine Culture 11/29 17:40 Order name: Urine Dipstick-Ancillary; Complete Time: 18:16 EDMS 11/29 19:15 Interpretation: Normal except: UGLUC 2+. 11/29 18:38 Order name: Glucose, Ancillary Testing; Complete Time: 19:14 EDMS 11/29 19:14 Interpretation: Abnormal: GLUC,ANCIL 473. 11/29 16:19 Order name: Accucheck Blood Glucose; Complete Time: 16:36 11/29 16:33 Order name: IV Saline Lock; Complete Time: 16:35 11/29 16:33 Order name: Labs collected and sent; Complete Time: 16:35 11/29 16:47 Order name: EKG; Complete Time: 16:48 11/29 16:47 Order name: EKG - Nurse/Tech; Complete Time: 17:33 11/29 19:18 Order name: Urinalysis; Complete Time: 19:26 EDMS 11/29 19:29 Order name: Glucose, Ancillary Testing; Complete Time: 19:41 EDMS 11/29 19:29 Order name: Glucose, Ancillary Testing EDNM 11/29 19:41 Order name: BMP; Complete Time: 20:39 11/29 20:40 Interpretation: Normal except: NA 130; CO2 19; GLUC 306; BUN 22; GFR 72. cp EC:02 Rate is 72 beats/min. Rhythm is regular. WA interval is normal. QRS interval is cp prolonged at 102 msec. QT interval is normal. T waves are Inverted in lead aVR. Interpreted by me. Reviewed by me. Administered Medications: 16:42 Drug: NS 0.9% 1000 ml Route: IV; Rate: 1 bolus; Site: left antecubital; zb 21:08 Follow up: Response: No adverse reaction; IV Status: Completed infusion; IV Intake: zb 1000ml 17:08 Drug: Insulin Regular Human 10 units {Co-Signature: rebecca (Saundra Marsh RN).} Route: zb IVP; Site: right antecubital; 18:38 Follow up: Response: No adverse reaction; Blood sugar is lowered zb 17:31 Drug: fentaNYL (PF) 25 mcg {Note: RASS +0.} Route: IVP; Site: right antecubital; zb 18:39 Follow up: Response: No adverse reaction zb 18:34 Drug: fentaNYL (PF) 25 mcg {Note: RASS +1.} Route: IVP; Site: right antecubital; zb 18:40 Follow up: Response: No adverse reaction; Marked relief of symptoms; Pain is decreased; zb RASS: Alert and Calm (0) 18:35 Not Given (Other Intervention Used): Rocephin - (cefTRIAXone) 1 grams IVPB once over 30 zb mins; (mix in 50 mL NS) 18:35 Drug: Insulin Regular Human 10 units {Co-Signature: [email or web address] (Saundra Marsh RN).} Route: zb IVP; Site: right antecubital; 21:08 Follow up: Response: No adverse reaction; Blood sugar is lowered zb Disposition Summary: 11/29/20 20:46 Discharge Ordered Location: Home cp Problem: an acute exacerbation cp Symptoms: have improved cp Condition: Stable cp Diagnosis - Diabetes mellitus due to underlying condition with hyperglycemia cp - Low back pain - chronic cp Followup: cp - With: Private Physician - When: 2 - 3 days - Reason: Recheck today's complaints Discharge Instructions: - Discharge Summary Sheet cp - Chronic Back Pain cp - Form - Daily Diabetes Record cp - Blood Glucose Monitoring, Adult cp - Diabetes Mellitus and Nutrition, Adult cp - Back Exercises cp Forms: - Medication Reconciliation Form cp - Thank You Letter cp - Antibiotic Education cp - Prescription Opioid Use cp Addendum: 12/02/2020 06:49 Co-signature as Attending Physician, Pepe Rodriguez MD I agree with the assessment and c mancuso plan of care. Signatures: Dispatcher [employer] Pepe Cummings MD MD cha Page, Corey, PA PA Pili Looney RN RN tw2 Vanda Michaels RN RN zb Saundra Marsh RN ap3 Corrections: (The following items were deleted from the chart) 11/29 19: 17:06 Urine Dipstick-Ancillary ordered. EDMS EDMS 17:22 Urine Dipstick-Ancillary reviewed. cp EDMS 17:23 Normal except: UBLD 3+; UPROT 2+; U NIT Positive; UESTR 1+. cp EDMS 11/30 02:02 11/29 16:10 Constitutional: Negative for body aches, chills, fever, poor PO intake, cp cp 11/30 02:02 11/29 16:10 Cardiovascular: Negative for chest pain, edema, palpitations, cp cp 11/30 02:02 11/29 16:10 Respiratory: Negative for cough, shortness of breath, wheezing, cp cp 11/30 02:02 11/29 16:10 Abdomen/GI: Negative for abdominal pain, nausea, vomiting, and diarrhea, cp constipation, cp 11/30 02:11/29 16:10 Eyes: Negative for injury, pain, redness, and discharge, cp cp 11/30 02:02 11/29 16:10 ENT: Negative for ear pain, sore throat, difficulty swallowing, difficulty cp handling secretions, cp 11/30 02:02 11/29 16:10 Neck: Negative for stiffness, cp cp 11/30 02:02 11/29 16:10 Back: Positive for chronic pain, cp cp 11/30 02:02 11/29 16:10 Neuro: Negative for altered mental status, headache, numbness, syncope, cp weakness, cp 11/30 02:02 11/29 16:10 Skin: Negative for rash, cp cp 11/30 02:02 11/29 16:10 All other systems are negative, cp cp
--- NOTE | 2020-11-29 20:47 | ER ---
Nurse's Notes [facility] Name: Manfred Canales Jr Age: 50 yrs Sex: Male : 1970 Arrival Date: 11/29/2020 Time: 16:05 Bed 28 Private MD: Diagnosis: Diabetes mellitus due to underlying condition with hyperglycemia;Low back pain-chronic Presentation: 11/29 16:17 Chief complaint: Patient states: my pcp sent me here. my sugar is greater than 500. i tw2 had a procedure was last Wednesday on my back on my spinal cord. they did injections on my back. Coronavirus screen: At this time, the client does not indicate any symptoms associated with coronavirus-19. Ebola Screen: Patient denies travel to an Ebola-affected area in the 21 days before illness onset. Initial Sepsis Screen: Does the patient meet any 2 criteria? No. Patient's initial sepsis screen is negative. Does the patient have a suspected source of infection? No. Patient's initial sepsis screen is negative. Risk Assessment: Do you want to hurt yourself or someone else? Patient reports no desire to harm self or others. Onset of symptoms was November 29, 2020. 16:17 Method Of Arrival: Ambulatory tw2 16:17 Acuity: ISABEL 2 tw2 Triage Assessment: 16:19 General: Appears in no apparent distress. well groomed, Behavior is calm, cooperative, tw2 appropriate for age. Pain: Complains of pain in back. Historical: - Allergies: 16:19 Morphine; "dont work on me"; tw2 - Home Meds: 16:19 allopurinol 100 mg Oral tab 1 tab once daily [Active]; Plavix 75 mg Oral tab 1 tab once tw2 daily [Active]; metformin 850 mg Oral tab 1 tab 3 times per day [Active]; Januvia 100 mg Oral tab 1 tab once daily [Active]; lovastatin 40 mg Oral tab 1 tab once daily [Active]; aspirin 81 mg Oral TbEC 1 tab once daily [Active]; amlodipine 10 mg tab 1 tab once daily [Active]; - PMHx: 16:19 Diabetes - NIDDM; High Cholesterol; Hypertension; Myocardial infarction; Gout; tw2 - Immunization history:: Adult Immunizations Client reports having NOT received the Covid vaccine. - Social history:: Smoking status: Patient denies any tobacco usage or history of. Screenin:42 Abuse screen: Denies threats or abuse. Denies injuries from another. Nutritional zb screening: No deficits noted. Tuberculosis screening: No symptoms or risk factors identified. Fall Risk None identified. Assessment: 16:43 General: Appears in no apparent distress. Behavior is calm, Reports fatigue for >3 zb days. Pain: Complains of pain in back Pain currently is 8 out of 10 on a pain scale. Quality of pain is described as aching. Neuro: Level of Consciousness is awake, alert, obeys commands, Oriented to person, place, time, Audit Officer are equal bilaterally Moves all extremities. Full function. Cardiovascular: Capillary refill < 3 seconds. Respiratory: Airway is patent. GI: Abdomen is round obese, Abd is soft and non tender X 4 quads. : Reports urinary frequency, since x7 days Denies burning with urination, cramping discharge. Derm: Skin is intact, is healthy with good turgor, Skin is dry, Skin is normal. Musculoskeletal: Range of motion: intact in all extremities. 16:48 Reassessment: ECP at bedside. Verbal for EKG. zb 17:32 Reassessment: Patient appears in no apparent distress at this time. Patient and/or zb family updated on plan of care and expected duration. Pain level reassessed. Patient is alert, oriented x 3, equal unlabored respirations, skin warm/dry/pink. IV fluid infusing. 18:40 Reassessment: Patient appears in no apparent distress at this time. Patient and/or zb family updated on plan of care and expected duration. Pain level reassessed. Patient is alert, oriented x 3, equal unlabored respirations, skin warm/dry/pink. IV fluid infusing. notified ecp of blood sugar 470's. 19:30 Reassessment: Patient appears in no apparent distress at this time. Patient and/or zb family updated on plan of care and expected duration. Pain level reassessed. Patient is alert, oriented x 3, equal unlabored respirations, skin warm/dry/pink. 20:20 Reassessment: Patient appears in no apparent distress at this time. Patient and/or zb family updated on plan of care and expected duration. Pain level reassessed. Patient is alert, oriented x 3, equal unlabored respirations, skin warm/dry/pink. 21:06 Reassessment: Patient appears in no apparent distress at this time. Patient and/or zb family updated on plan of care and expected duration. Pain level reassessed. Patient is alert, oriented x 3, equal unlabored respirations, skin warm/dry/pink. d/c instructions given. gait even and steady. Vital Signs: 16:17 BP 138 / 95; Pulse 77; Resp 18; Temp 97.9(TE); Pulse Ox 99% on R/A; Weight 108.86 kg tw2 (R); 16:44 BP 155 / 91; Pulse 75; Resp 16; Pulse Ox 98% ; zb 17:53 BP 122 / 93; Pulse 87; Resp 16; Pulse Ox 98% on R/A; zb 18:41 BP 121 / 74; Pulse 84; Resp 16; Pulse Ox 100% on R/A; zb 20:21 BP 127 / 98; Pulse 74; Resp 16; Pulse Ox 100% on R/A; zb ED Course: 16:05 Patient arrived in ED. mr 16:19 Pepe Quiñonez PA is PHCP. cp 16:19 Pepe Rodriguez MD is Attending Physician. cp 16:19 Triage completed. tw2 16:20 Arm band placed on. tw2 16:22 Vanda Michaels, ANASTASIIA is Primary Nurse. zb 16:30 Inserted saline lock: 20 gauge in right antecubital area, using aseptic technique. zb Blood collected. 17:32 Patient has correct armband on for positive identification. weight control engineer on. Pulse zb ox on. NIBP on. Door closed. Noise minimized. 20:54 No provider procedures requiring assistance completed. IV discontinued, intact, zb bleeding controlled, No redness/swelling at site. Pressure dressing applied. Administered Medications: 16:42 Drug: NS 0.9% 1000 ml Route: IV; Rate: 1 bolus; Site: left antecubital; zb 21:08 Follow up: Response: No adverse reaction; IV Status: Completed infusion; IV Intake: zb 1000ml 17:08 Drug: Insulin Regular Human 10 units {Co-Signature: ap3 (Saundra Marsh RN).} Route: zb IVP; Site: right antecubital; 18:38 Follow up: Response: No adverse reaction; Blood sugar is lowered zb 17:31 Drug: fentaNYL (PF) 25 mcg {Note: RASS +0.} Route: IVP; Site: right antecubital; zb 18:39 Follow up: Response: No adverse reaction zb 18:34 Drug: fentaNYL (PF) 25 mcg {Note: RASS +1.} Route: IVP; Site: right antecubital; zb 18:40 Follow up: Response: No adverse reaction; Marked relief of symptoms; Pain is decreased; zb RASS: Alert and Calm (0) 18:35 Not Given (Other Intervention Used): Rocephin - (cefTRIAXone) 1 grams IVPB once over 30 zb mins; (mix in 50 mL NS) 18:35 Drug: Insulin Regular Human 10 units {Co-Signature: ap3 (Saundra Marsh RN).} Route: zb IVP; Site: right antecubital; 21:08 Follow up: Response: No adverse reaction; Blood sugar is lowered zb Intake: 21:08 IV: 1000ml; Total: 1000ml. zb Outcome: 20:46 Discharge ordered by . cp 20:54 Discharged to home ambulatory. zb 20:54 Condition: stable 20:54 Discharge instructions given to patient, family, Instructed on discharge instructions, follow up and referral plans. Demonstrated understanding of instructions, follow-up care. 21:08 Patient left the ED. zb Signatures: Renetta Juárez Corey, PA PA cp Wise, Tara RN RN tw2 Vanda Michaels RN RN zb Saundra Marsh RN ap3
[2020-11-29 21:34] VITALS: TEMP 97.9
[2020-11-29 21:39] VITALS: O2SAT 100
[2020-11-29 21:40] VITALS: BP 127/98
== END 2020-11-29 21:08 | disposition home or self-care (01) ==
LOC: ER 16:00
DX: E11.65 Type 2 diabetes mellitus with hyperglycemia (principal); M54.5 Low back pain; G89.29 Other chronic pain; E78.00 Pure hypercholesterolemia, unspecified; I10 Essential (primary) hypertension; I25.2 Old myocardial infarction; M10.9 Gout, unspecified; Z79.84 Long term (current) use of oral hypoglycemic drugs
CPT/HCPCS: 96361; 85025; 87086; 80048 ×2; 36415; 82010; 83735; 82947 ×3; 80076; 84484; 83690; 96375; 96374; 99284; J3010; J7030; 81003; 81015; 87088; 93005

== ENCOUNTER 2020-12-05 01:34 | Observation (INO) | payer OTHER ==
--- OUTSIDE RECORDS SUMMARY | 2020-12-05 01:37 | XMS REPORT | Continuity of Care Document ---
:1970 Author Organization [facility] t Address [address] [place] [address] Care Team Providers Name Role Phone Viktoria ALLRED, L Attending Clinician Problems Condition Condition Condition Status Onset Resolution Last Treating Co mments Source Name Details Category Date Date Treatment Clinician Date Pure Problem Active 2020-09-03 Memor ia hyperchole 02:45:14 l sterolemia Pure [place] n hyperchole sterolemia Active Problem 09/03/2020 Ahmed Ahmed Atheroscle Problem Active 2020-09-03 M emoria r-limb&cla 02:45:14 l udic [place] Atheroscle r-limb&cla udic Active Problem 09/03/2020 Ghazalmed [...] Uri Shortness of breath Active Diagnosis 11/04/2019 Ahmed Ahmed Atheroscle Diagnosis Active 2019-11-04 Memoria r of 02:53:17 l [place] artery of Atheroscle both legs r of with [place] intermit artery of claudicati both legs on with intermit claudicati on Active Diagnosis 11/04/2019 Ness Arzola Atheroscle Diagnosis Active 2019-11-04 Memoria rosis of 02:53:17 l coronary Uri artery Atheroscle bypass rosis of graft of coronary [place] artery heart with bypass stable graft of angina [place] pectoris heart with stable angina pectoris Active Diagnosis 11/04/2019 Ness Arzola Other Diagnosis Active 2019-11-04 Mem oria symptoms 02:53:17 l involving Other [place] n cardiovasc symptoms ular involving system cardiovasc ular system Active Diagnosis 11/04/2019 Ness Arzola DM w/o Problem Active 2020-09-03 Memor ia complicati 02:45:14 l on type 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 [place]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, 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, uncontroll ed Active Problem Ness Arzola Benign Problem Active 2020-09-03 Memor ia hypertensi 02:45:14 l ve heart Benign [place] n disease hypertensi without ve heart congestive disease heart without failure congestive heart failure Active Problem 09/03/2020 Ness Arzola Reflux Problem Active 2020-09-03 Memor ia esophagiti 02:45:14 l s Reflux [place] esophagiti s Active Problem 09/03/2020 Ness Arzola [...] tablet Memori a 5- Ahmed l 02:45: [place] 14 Crestor Yes Ahmed 1 tablet Memor ia 4-27 Ahmed l 02:45: [place] 16 Lisinopril 2020-0 Yes Ahmed 1 tablet [...] Observation Value Comments Source Weight 2019-03-13 15:30:00 [facility] Heart Rate 2019-03-13 15:30:00 [facility] [place] Diastolic (mm Hg) 2019-03-13 15:30:00 Mem orial [place] Systolic (mm Hg) 2019-03-13 15:30:00 Samuel rial [place] Weight 2018-04-05 16:30:00 [facility] Heart Rate 2018-04-05 16:30:00 [facility] Diastolic (mm Hg) 2018-04-05 16:30:00 Mem orial [place] Systolic (mm Hg) 2018-04-05 16:30:00 Samuel rial Uri Weight 2018-03-09 18:15:00 [facility] [place] Heart Rate 2018-03-09 18:15:00 [facility] Diastolic (mm Hg) 2018-03-09 18:15:00 Mem orial Uri Systolic (mm Hg) 2018-03-09 18:15:00 Samuel rial Uri Weight 2017-05-05 16:45:00 [facility] [place] Heart Rate 2017-05-05 16:45:00 [facility] [place] Diastolic (mm Hg) 2017-05-05 16:45:00 Mem orial Uri Systolic (mm Hg) 2017-05-05 16:45:00 Samuel rial [place] Weight 2017-04-15 17:30:00 [facility] [place] Heart Rate 2017-04-15 17:30:00 [facility] [place] Diastolic (mm Hg) 2017-04-15 17:30:00 Mem orial [place] Systolic (mm Hg) 2017-04-15 17:30:00 Samuel rial Uri Procedures This patient has no known procedures. Encounters Start End Encounter Admission Attending Care Care Encounter Source Date/Time Date/Time Type Type Clinicians Facility Department ID 2020-09-02 2020-09-02 Outpatient franca Arzola [id number] [facility] 12:52:00 12:52:00 Cardiolog Cardiology a Melodie Cho 2020-08-26 2020-08-26 Outpatient Ness Arzola [id number] [facility] 12:21:00 12:21:00 Cardiolog Cardiology berkley Cho 2020-08-21 2020-08-21 Outpatient Ness Arzola [id number] [facility] 09:27:00 09:27:00 Cardiolog Cardiology b[facility]ley Cho 2020-01-22 2020-01-22 Office PRATIK Blum [id number] 15:08:06 15:28:47 Visit [facility] [id number] [facility] [id number] es [address] Mai 2019-03-13 2019-03-13 Outpatient med Ahmed [id number] [facility]inic 10:30:00 10:30:00 [facility] 2018-06-06 2018-06-06 Outpatient med Ahmed [id number] [facility] 10:02:00 10:02:00 [facility] 2018-04-05 2018-04-05 Outpatient med Ahmed [id number] [facility]inic 11:30:00 11:30:00 [facility] 2018-03-11 2018-03-11 Outpatient med Ahmed [id number] [facility] 09:34:00 09:34:00 [facility] 2018-03-11 2018-03-11 Outpatient med Ahmed [id number] [facility]inic 08:44:00 08:44:00 [facility] 2018-03-09 2018-03-09 Outpatient med Ahmed [id number] [facility]inic 13:15:00 13:15:00 [facility] 2017-05-05 2017-05-05 Outpatient med med [id number] [facility] 10:45:00 10:45:00 [facility] 2017-04-15 2017-04-15 Outpatient med Ahmed [id number] [facility] 11:30:00 11:30:00 [facility] Results This patient has no known results.
[2020-12-05 02:10] LABS: Absolute Lymphocytes (CBC) 2.9 K/uL (0.7-4.9); Basophils % 1.2 % (0-1.3); Hematocrit 35.8 % (39.6-49.0); Lymphocytes % 47.2 % (15.3-44.8); MPV 8.6 fL (7.6-11.3); RBC Red Blood Cell Count 3.87 M/uL (4.33-5.43)
[2020-12-05 02:23] LABS: ALT/SGPT 41 U/L (12-78); AST/SGOT 20 U/L (15-37); Albumin 3.8 g/dL (3.4-5.0); Alkaline Phosphatase 61 U/L (45-117); BUN Blood Urea Nitrogen 17 mg/dL (7-18); Bicarbonate 23 mmol/L (21-32); Bilirubin Direct 0.1 mg/dL (0-0.2); Bilirubin Total 0.7 mg/dL (0.2-1.0); Glucose Level 331 mg/dL (74-106); NT PRO-BNP 66 pg/mL (<125); Potassium 4.9 mmol/L (3.5-5.1); Protein, Total 7.2 g/dL (6.4-8.2); Sodium Level 136 mmol/L (136-145); Troponin (Emerg Dept Use Only) < 0.02 ng/mL (0.0-0.045)
--- NOTE | 2020-12-05 02:30 | EDPHYS ---
Physician Documentation [facility] Name: Manfred Canales Jr Age: 50 yrs Sex: Male : 1970 Arrival Date: 12/05/2020 Time: 01:38 Bed 4 Private MD: ED Physician Rodriguez Garcia HPI: 12/05 02:24 This 50 yrs old Black Male presents to ER via Unassigned with complaints of Chest Pain pkl > 30 y/o. 02:24 The patient or guardian reports chest pain that is located primarily in the left pkl anterior chest. Onset: just prior to arrival, 1.5 hour(s) ago. The pain does not radiate. Associated signs and symptoms: Pertinent positives: diaphoresis. The chest pain is described as a pressure. Historical: - Allergies: 03:47 No Known Allergies; ms4 - Home Meds: 02:26 allopurinol 100 mg Oral tab 1 tab once daily [Active]; aspirin 81 mg Oral TbEC 1 tab ms4 once daily [Active]; Januvia 100 mg Oral tab 1 tab once daily [Active]; glipizide 10 mg Oral tab 1 tab 2 times per day [Active]; Lantus U-100 Insulin 100 unit/mL Sub-Q crtg 5 units daily [Active]; Plavix 75 mg Oral tab 1 tab once daily [Active]; metoprolol tartrate 50 mg Oral tab 1 tab once daily [Active]; omega-3 fatty acids oral cap four times a day [Active]; lisinopril 20 mg Oral tab 1 tab twice daily [Active]; cyclobenzaprine 10 mg Oral tab 1 tab 3 times per day [Active]; rosuvastatin 40 mg oral tab 1 tab once daily [Active]; isosorbide mononitrate 30 mg Oral Tb24 1 tab once daily [Active]; - PMHx: 02:26 Diabetes - NIDDM; Gout; High Cholesterol; Hypertension; Myocardial infarction; ms4 - PSHx: 03:06 Coronary artery bypass graft; Stented artery; ms4 - Immunization history:: Adult Immunizations up to date, Client reports having NOT received the Covid vaccine. Last tetanus immunization: up to date. - Social history:: Smoking status: . ROS: 02:24 Eyes: Negative for injury, pain, redness, and discharge, ENT: Negative for injury, pkl pain, and discharge, Neck: Negative for injury, pain, and swelling. 02:24 Cardiovascular: Positive for chest pain, of the left anterior chest. 02:24 Respiratory: Negative for cough. 02:24 Abdomen/GI: Negative for abdominal pain, nausea, vomiting, and diarrhea. 02:24 Back: Negative for acute changes. 02:24 : Negative for urinary symptoms. 02:24 MS/extremity: Negative for acute changes. 02:24 Skin: Negative for rash. 02:24 Neuro: Negative for altered mental status, loss of consciousness. Exam: 02:24 Head/Face: Normocephalic, atraumatic. Eyes: Pupils equal round and reactive to light, pkl extra-ocular motions intact. Lids and lashes normal. Conjunctiva and sclera are non-icteric and not injected. Cornea within normal limits. Periorbital areas with no swelling, redness, or edema. ENT: Nares patent. No nasal discharge, no septal abnormalities noted. Tympanic membranes are normal and external auditory canals are clear. Oropharynx with no redness, swelling, or masses, exudates, or evidence of obstruction, uvula midline. Mucous membranes moist. Neck: Trachea midline, no thyromegaly or masses palpated, and no cervical lymphadenopathy. Supple, full range of motion without nuchal rigidity, or vertebral point tenderness. No Meningismus. Chest/axilla: Normal chest wall appearance and motion. Nontender with no deformity. No lesions are appreciated. Cardiovascular: Regular rate and rhythm with a normal S1 and S2. No gallops, murmurs, or rubs. Normal PMI, no JVD. No pulse deficits. Respiratory: Lungs have equal breath sounds bilaterally, clear to auscultation and percussion. No rales, rhonchi or wheezes noted. No increased work of breathing, no retractions or nasal flaring. Abdomen/GI: Soft, non-tender, with normal bowel sounds. No distension or tympany. No guarding or rebound. No evidence of tenderness throughout. Back: No spinal tenderness. No costovertebral tenderness. Full range of motion. Skin: Warm, dry with normal turgor. Normal color with no rashes, no lesions, and no evidence of cellulitis. MS/ Extremity: Pulses equal, no cyanosis. Neurovascular intact. Full, normal range of motion. Neuro: Awake and alert, GCS 15, oriented to person, place, time, and situation. Cranial nerves II-XII grossly intact. Motor strength 5/5 in all extremities. Sensory grossly intact. Cerebellar exam normal. Normal gait. Vital Signs: 02:20 BP 134 / 84; Pulse 55; Resp 16; Temp 98.4; Pulse Ox 95% ; Pain 8/10; ms4 02:52 Weight 125.65 kg; Height 5 ft. 11 in. (180.34 cm); ms4 02:56 BP 134 / 84; Pulse 50; Resp 18; Pulse Ox 98% ; ms4 03:37 BP 137 / 96; Pulse 47; Resp 18; Pulse Ox 99% ; Pain 8/10; ms4 02:52 Body Mass Index 38.63 (125.65 kg, 180.34 cm) ms4 MDM: 02:03 Patient medically screened. pkl 02:27 Data reviewed: vital signs, nurses notes, lab test result(s), EKG, radiologic studies, pkl plain films. ED course: Talked to Mykel Calvert for observation Dr. Ryan Kirby. 12/05 01:42 Order name: Basic Metabolic Panel kb 12/05 01:42 Order name: CBC with Diff kb 12/05 01:42 Order name: LFT's; Complete Time: 02:24 kb 12/05 01:42 Order name: Magnesium; Complete Time: 02:24 kb 12/05 01:42 Order name: NT PRO-BNP; Complete Time: 02:24 kb 12/05 01:42 Order name: PT-INR; Complete Time: 02:42 kb 12/05 01:42 Order name: Troponin (emerg Dept Use Only); Complete Time: 02:24 kb 12/05 01:42 Order name: Basic Metabolic Panel; Complete Time: 02:24 EDMS 12/05 01:42 Order name: CBC with Automated Diff; Complete Time: 02:18 EDMS 12/05 02:32 Order name: D-Dimer; Complete Time: 02:42 EDMS 12/05 03:42 Order name: SARS-COV-2 RT PCR EDMS 12/05 05:42 Order name: Urine Dipstick-Ancillary EDMS 12/05 01:39 Order name: EKG; Complete Time: 01:40 kb 12/05 01:39 Order name: EKG - Nurse/Tech; Complete Time: 01:40 kb 12/05 01:42 Order name: XRAY Chest (1 view) kb 12/05 01:42 Order name: Cardiac monitoring; Complete Time: 03:02 kb 12/05 06:06 Order name: Glucose, Ancillary Testing EDMS 12/05 06:31 Order name: T4 Free EDMS 12/05 06:39 Order name: Troponin I EDMS 12/05 06:39 Order name: Lipid Profile EDMS 12/05 06:39 Order name: Thyroid Stimulating Hormone EDMS 12/05 06:49 Order name: LDL, Direct EDMS 12/05 08:09 Order name: Glucose, Ancillary Testing EDMS 12/05 11:40 Order name: Glucose, Ancillary Testing EDMS 12/05 12:14 Order name: Troponin I EDMS 12/05 01:42 Order name: IV Saline Lock; Complete Time: 02:36 kb 12/05 01:42 Order name: Labs collected and sent; Complete Time: 02:36 kb 12/05 01:42 Order name: O2 Per Protocol; Complete Time: 02:37 kb 12/05 01:42 Order name: O2 Sat Monitoring; Complete Time: 02:37 kb Administered Medications: 02:46 Drug: fentaNYL (PF) 50 mcg Route: IVP; Site: left antecubital; ms4 02:48 Follow up: Response: No adverse reaction ms4 03:09 Follow up: Response: No change in condition ms4 03:02 Not Given (Patient Refused): Zofran (Ondansetron) 4 mg IVP once; over 2 minutes ms4 03:36 Drug: fentaNYL (PF) 50 mcg Route: IVP; Site: left antecubital; ms4 03:36 Follow up: Response: No adverse reaction ms4 Disposition Summary: 12/05/20 02:29 Hospitalization Ordered Hospitalization Status: Observation pkl Provider: Ryan Kirby pkl Condition: Stable pkl Problem: new pkl Symptoms: are unchanged pkl Bed/Room Type: Standard pkl Location: [facility] ER HOLD(12/05/20 04:30) cg Room Assignment: ERHOLD-(12/05/20 04:30) cg Diagnosis - Chest pain pkl Forms: - Medication Reconciliation Form pkl - SBAR form pkl Signatures: Dispatcher [employer] EDLuz Elena James, TARGET TRIMMER-C TARGET TRIMMER-Costaemily Rodriguez Garcia MD MD pkl Mykel Calvert, TARGET TRIMMER-C TARGET TRIMMER-Cla1 Shabnam Sy, RN RN cg Kristie Goode RN RN ms4 Corrections: (The following items were deleted from the chart) 02:25 02:07 CORONAVIRUS+MR.LAB.BRZ ordered. EDMS EDMS 02:31 02:24 D-DIMER+COAG.LAB.BRZ ordered. EDMS EDMS 03:47 02:26 Allergies: Morphine; "dont work on me"; ms4 ms4 03:47 03:47 Allergies: Morphine; "dont work on me" [Resolved]; ms4 ms4 04:30 02:29 Telemetry/MedSurg (observation) pk cg [facility]:30 [facility]
--- NOTE | 2020-12-05 02:30 | ER ---
Nurse's Notes [facility] Name: Manfred Canales Jr Age: 50 yrs Sex: Male : 1970 Arrival Date: 12/05/2020 Time: 01:38 Bed 4 Private MD: Diagnosis: Chest pain Presentation: 12/05 02:20 Chief complaint: Patient states: patient presents to the ED via EMS c/o left sided ms4 chest pain and shortness of breath onset 0045. patient had (3) nitro and 324 mg ASA GRADUATE RECRUITER with no relief. patient has hx of VA and CABG. Coronavirus screen: Client denies travel out of the [place] in the last 14 days. shortness of breath. Ebola Screen: Patient negative for fever greater than or equal to 101.5 degrees Fahrenheit, and additional compatible Ebola Virus Disease symptoms Patient denies exposure to infectious person. Patient denies travel to an Ebola-affected area in the 21 days before illness onset. No symptoms or risks identified at this time. Initial Sepsis Screen: Does the patient meet any 2 criteria? No. Patient's initial sepsis screen is negative. Does the patient have a suspected source of infection? No. Patient's initial sepsis screen is negative. Risk Assessment: Do you want to hurt yourself or someone else? Patient reports no desire to harm self or others. Onset of symptoms was December 05, 2020 at 00:45. 02:20 Method Of Arrival: EMS ms4 02:20 Acuity: ISABEL 2 ms4 Triage Assessment: 02:32 General: Appears in no apparent distress. Behavior is calm, cooperative. Pain: ms4 Complains of pain in left side of chest Pain currently is 8 out of 10 on a pain scale. Quality of pain is described as pressure, Pain began 2 hours ago. Is continuous. EENT:. Neuro: No deficits noted. Cardiovascular: Reports chest pain, shortness of breath, since 0045 Heart tones S1 S2 Capillary refill < 3 seconds Patient's skin is warm and dry. Pulses are all present. are 3+ in right radial artery and left radial artery Rhythm is regular. Respiratory: No deficits noted. Reports shortness of breath on exertion. GI: No deficits noted. : No deficits noted. Historical: - Allergies: 03:47 No Known Allergies; ms4 - Home Meds: 02:26 allopurinol 100 mg Oral tab 1 tab once daily [Active]; aspirin 81 mg Oral TbEC 1 tab ms4 once daily [Active]; Januvia 100 mg Oral tab 1 tab once daily [Active]; glipizide 10 mg Oral tab 1 tab 2 times per day [Active]; Lantus U-100 Insulin 100 unit/mL Sub-Q crtg 5 units daily [Active]; Plavix 75 mg Oral tab 1 tab once daily [Active]; metoprolol tartrate 50 mg Oral tab 1 tab once daily [Active]; omega-3 fatty acids oral cap four times a day [Active]; lisinopril 20 mg Oral tab 1 tab twice daily [Active]; cyclobenzaprine 10 mg Oral tab 1 tab 3 times per day [Active]; rosuvastatin 40 mg oral tab 1 tab once daily [Active]; isosorbide mononitrate 30 mg Oral Tb24 1 tab once daily [Active]; - PMHx: 02:26 Diabetes - NIDDM; Gout; High Cholesterol; Hypertension; Myocardial infarction; ms4 - PSHx: 03:06 Coronary artery bypass graft; Stented artery; ms4 - Immunization history:: Adult Immunizations up to date, Client reports having NOT received the Covid vaccine. Last tetanus immunization: up to date. - Social history:: Smoking status: . Screenin:56 Abuse screen: Denies threats or abuse. Denies injuries from another. Nutritional ms4 screening: No deficits noted. Tuberculosis screening: No symptoms or risk factors identified. Fall Risk None identified. Assessment: 02:54 Also complains of shortness of breath. Reassessment: Patient appears in no apparent ms4 distress at this time. General: Appears in no apparent distress. Behavior is calm, cooperative. Pain: Complains of pain in chest left side Pain does not radiate. Pain currently is 8 out of 10 on a pain scale. Quality of pain is described as pressure, Pain began 2 hours ago. Is continuous, Alleviated by nothing. Also complains of shortness of breath. Neuro: No deficits noted. Cardiovascular: No deficits noted. Respiratory: Reports shortness of breath Airway is patent Breath sounds are clear Denies cough. GI: No deficits noted. : No deficits noted. Musculoskeletal: No deficits noted. 03:03 Reassessment: Patient reports fentanyl "isn't working at all". patient states "my body ms4 takes more pain medication than the average person. Morphine doesn't work for me either. I need something stronger". MD at bedside. 03:37 Pain:. ms4 03:51 Pain: Complains of pain in chest left side Pain does not radiate. Pain currently is 7 ms4 out of 10 on a pain scale. Quality of pain is described as pressure. 03:52 Reassessment: pt states his pain is slightly improved after fentanyl. ms4 Vital Signs: 02:20 BP 134 / 84; Pulse 55; Resp 16; Temp 98.4; Pulse Ox 95% ; Pain 8/10; ms4 02:52 Weight 125.65 kg; Height 5 ft. 11 in. (180.34 cm); ms4 02:56 BP 134 / 84; Pulse 50; Resp 18; Pulse Ox 98% ; ms4 03:37 BP 137 / 96; Pulse 47; Resp 18; Pulse Ox 99% ; Pain 8/10; ms4 02:52 Body Mass Index 38.63 (125.65 kg, 180.34 cm) ms4 ED Course: 01:38 Patient arrived in ED. kb 02:03 Rodriguez Garcia MD is Attending Physician. pkl 02:16 XRAY Chest (1 view) In Process Unspecified. EDMS 02:20 Kristie Goode, ANASTASIIA is Primary Nurse. ms4 02:25 Triage completed. ms4 02:29 Ryan Kirby MD is Hospitalizing Provider. pkl 02:35 Arm band placed on left wrist. EKG completed in triage. Results shown to MD. ms4 02:35 Maintain EMS IV. Dressing intact. Good blood return noted. Site clean \\T\\ dry. Gauge \\T\\ ms 4 site: 20 G L AC. 02:57 No provider procedures requiring assistance completed. Patient maintains SpO2 ms4 saturation greater than 95% on room air. 03:02 CBC with Diff Sent. ms4 03:03 Basic Metabolic Panel Sent. ms4 13:10 Patient has correct armband on for positive identification. Bed in low position. Call ll1 light in reach. Side rails up X 1. cardiac monitor on. Pulse ox on. NIBP on. 13:10 IV discontinued, intact, bleeding controlled, No redness/swelling at site. Pressure ll1 dressing applied. Administered Medications: 02:46 Drug: fentaNYL (PF) 50 mcg Route: IVP; Site: left antecubital; ms4 02:48 Follow up: Response: No adverse reaction ms4 03:09 Follow up: Response: No change in condition ms4 03:02 Not Given (Patient Refused): Zofran (Ondansetron) 4 mg IVP once; over 2 minutes ms4 03:36 Drug: fentaNYL (PF) 50 mcg Route: IVP; Site: left antecubital; ms4 03:36 Follow up: Response: No adverse reaction ms4 Outcome: 02:29 Decision to Hospitalize by Provider. pkl 02:30 Admitted to Tele ll1 02:30 Condition: stable 02:30 Instructed on the need for admit. 13:10 Patient left the ED. 1 Signatures: Dispatcher [employer] EDLuz Elena James, SANDRA CASILLAS-Rodriguez Valero MD MD pkl Lewis, Lynsay, RN RN ll1 Kristie Goode RN RN ms4 Corrections: (The following items were deleted from the chart) 02:49 02:46 Zofran (Ondansetron) 4 mg IVP in left antecubital ms4 ms4 02:49 02:48 Response: No adverse reaction ms4 ms4 02:57 02:35 Inserted saline lock: 20 gauge in left antecubital area, using aseptic technique. ms4 ms4 03:47 02:26 Allergies: Morphine; "dont work on me"; ms4 ms4 03:47 03:47 Allergies: Morphine; "dont work on me" [Resolved]; ms4 ms4
--- NOTE | 2020-12-05 03:19 | P.HP ---
Certification for Inpatient Patient admitted to: Observation With expected LOS: <2 Midnights Patient will require the following post-hospital care: None Practitioner: I am a practitioner with admitting privileges, knowledge of patient current condition, hospital course, and medical plan of care. Services: Services provided to patient in accordance with Admission requirements found in Title 42 Section 412.3 of the Code of Federal Regulations <Mykel Calvert - Last Filed: 12/05/20 03:15> Patient History Date of Service: 12/05/20 Primary Care Provider: Dr. Steen Reason for admission: Chest pain History of Present Illness: 50-year-old -[place] male with history of CAD status post CABG, diabetes type 2, hypertension, hyperlipidemia, gout presents emergency department for chest pain. Patient reports that he was resting on the couch when he got a sudden onset of pressure-like chest pain rated 8 out of 10 with associated shortness of breath and diaphoresis. Pain was nonradiating, not relieved with nitroglycerin. Patient denies similar episodes. Patient was evaluated in the emergency department, initial EKG without ST changes, first troponin negative hemoglobin 12.0 hematocrit 35.8 glucose 331. ED provider wishes to admit for further evaluation and management of chest pain. - Past Medical/Surgical History Diabetic: No -: IA -: Hyperlipidemia -: HTN -: Rhabdomyolysis -: DM2 -: CAD status post CABG -: Heart Cath -: CABG -: Hematoma Repair -: Carpal Tunnel/Torn Ligament -: Herniated Disc in Neck Sx Psychosocial/ Personal History: Patient on disability, lives at home with - Social History Smoking Status: Never smoker Alcohol use: No CD- Drugs: No Caffeine use: No Place of Residence: Home <Mykel Calvert - Last Filed: 12/05/20 03:15> Date of Service: 12/05/20 <Ryan Kirby - Last Filed: 12/05/20 07:08> Allergies No Known Drug Allergies Allergy (Verified 07/04/20 21:48) Unknown No Known Allergies Allergy (Uncoded 07/30/16 05:04) Unknown Home Medications: Allopurinol 1 tab PO DAILY 07/05/20 Clopidogrel Bisulfate [Plavix] 1 tab PO DAILY 07/05/20 Insulin Glargine,Hum.rec.anlog [Lantus Solostar] 30 unit SQ DAILY AT SUPPER 30 Days #12 ml 07/05/20 Isosorbide Mononitrate [Isosorbide Mononitrate ER] 1 tab PO DAILY 07/05/20 Lisinopril [Zestril] 1 tab PO BID 07/05/20 Metoprolol Tartrate [Lopressor] 1 tab PO DAILY 07/05/20 Rosuvastatin Calcium [Crestor] 1 tab PO DAILY 07/05/20 Review of Systems 10-point ROS is otherwise unremarkable Respiratory: Shortness of Breath, Other (Diaphoresis) Cardiovascular: Chest Pain <Mykel Calvert - Last Filed: 12/05/20 03:15> Physical Examination - Physical Exam General: Alert, In no apparent distress, Oriented x3 HEENT: Atraumatic, PERRLA, Mucous membr. moist/pink, EOMI, Sclerae nonicteric Neck: Supple, 2+ carotid pulse no bruit, No LAD, Without JVD or thyroid abnormality Respiratory: Clear to auscultation bilaterally, Normal air movement Cardiovascular: Regular rate/rhythm, Normal S1 S2 Gastrointestinal: Normal bowel sounds, No tenderness Musculoskeletal: No tenderness Integumentary: No rashes Neurological: Normal gait, Normal speech, Normal strength at 5/5 x4 extr, Normal tone, Normal affect Lymphatics: No axilla or inguinal lymphadenopathy - Studies Laboratory Data (last 24 hrs) 12/05/20 01:52: PT 11.5, INR 1.00 12/05/20 01:52: WBC 6.10, Hgb 12.0 L, Hct 35.8 L D, Plt Count 351 12/05/20 01:52: Sodium 136, Potassium 4.9, BUN 17, Creatinine 1.12, Glucose 331 H, Magnesium 2.0, Total Bilirubin 0.7, AST 20, ALT 41, Alkaline Phosphatase 61 <Mykel Calvert - Last Filed: 12/05/20 03:15> - Studies Laboratory Data (last 24 hrs) 12/05/20 01:52: PT 11.5, INR 1.00 12/05/20 01:52: WBC 6.10, Hgb 12.0 L, Hct 35.8 L D, Plt Count 351 12/05/20 01:52: Sodium 136, Potassium 4.9, BUN 17, Creatinine 1.12, Glucose 331 H, Magnesium 2.0, Total Bilirubin 0.7, AST 20, ALT 41, Alkaline Phosphatase 61 <Ryan Kirby - Last Filed: 12/05/20 07:08> Assessment and Plan - Plan Assessment: Chest pain rule out ACShistory of CAD status post three-vessel CABG 2012, stent 2015 Diabetes type 2 with hyperglycemia Hypertension Hyperlipidemia Gout Plan: Chest pain rule out ACShistory of CAD status post three-vessel CABG 2012, stent 2016: Patient given aspirin, nitroglycerin by EMS, pain unrelieved with nitroglycerin. Patient given fentanyl in the emergency department as other pain medications "do not work for him". Patient reported diaphoresis during episode of chest pain, pain is ongoing, without acute EKG changes or elevated troponin at this time. Will trend troponins, monitor on telemetry, cardiology consult in place. Patient reports last that was in 2015, had CABG 3 vessel in 2012. Appreciate further input from cardiology. Diabetes type 2 with hyperglycemia: Patient with previously significantly elevated A1c in July, sugar still elevated in the 300s, patient currently taking 5 units of Lantus daily, increased to 20 units at this time. Further adjustment may be necessary. Hypertension: Home medications continued Hyperlipidemia: Home medications continued Gout: No medications continued DVT PPX: Lovenox Code status: Full Discharge Plan: Home Plan to discharge in: 24 Hours - Advance Directives Does patient have a Living Will: No Does patient have a Durable POA for Healthcare: No Critical Care: No Time Spent Managing Pts Care (In Minutes): 55 <Mykel Calvert - Last Filed: 12/05/20 03:15> - Plan patient seen and examined this morning. pain is 1/10, very mild - near his baseline discomfort reports pain was worse with slight exertion - felt like couldnt talk much because would add to pain h/o CABG/CAD trend trop, continue telemetry. cardiology to see <Ryan Kirby - Last Filed: 12/05/20 07:08>
[2020-12-05] MEDS ORDERED: D50W 25 GM/50 ML SYRINGE IV PRN (04:04)
[2020-12-05] MEDS ORDERED: CYCLOBENZAPRINE 10 MG TAB PO PRN (04:04)
[2020-12-05] MEDS ORDERED: GLUCAGON 1 MG/VIAL IM PRN (04:04)
[2020-12-05] MEDS ORDERED: FENTANYL CITR 100 MCG/2 ML IV PRN (04:04)
[2020-12-05] MEDS ORDERED: ONDANSETRON 4 MG/2 ML VIAL IV PRN (04:04)
[2020-12-05] MEDS ORDERED: ACETAMINOPHEN 500 MG TAB PO PRN (04:04)
[2020-12-05 05:12] VITALS: BMI 38.6
[2020-12-05 05:41] LABS: Urine Blood Negative (Negative); Urine Glucose 3+ (Negative); Urine Protein Negative (Negative); Urine Specific Gravity 1.015 (1.005-1.030)
[2020-12-05 06:36] LABS: HDL Cholesterol 34 mg/dL (40-60); Troponin I < 0.02 ng/mL (0.0-0.045)
[2020-12-05 06:49] LABS: LDL, Direct 181 mg/dL (100-129)
[2020-12-05] MEDS: INSULIN -REGULAR HUMAN 50 UNIT/0.5 ML ML SQ SCH ×2 (07:30→11:30)
[2020-12-05] MEDS ORDERED: glipiZIDE 5 MG TAB PO SCH (08:00)
[2020-12-05] MEDS ORDERED: INSULIN -REGULAR HUMAN 50 UNIT/0.5 ML ML ONE ×2 (08:39→12:36)
[2020-12-05] MEDS ORDERED: ASPIRIN EC 81 MG TAB PO ONE (08:41)
[2020-12-05] MEDS ORDERED: METOPROLOL TAR 50 MG TAB ONE (08:41)
[2020-12-05] MEDS ORDERED: CLOPIDOGREL 75 MG TABLET ONE (08:41)
[2020-12-05] MEDS ORDERED: ENOXAPARIN 40 MG/0.4 ML SQ ONE (08:42)
[2020-12-05] MEDS ORDERED: lisinopriL 20 MG TAB ONE (08:42)
[2020-12-05 08:54] VITALS: TEMP 98
--- NOTE | 2020-12-05 08:58 | RAD REPORT ---
EXAM DESCRIPTION: RAD - Chest Single View - 12/05/2020 2:16 am CLINICAL HISTORY: CHEST PAIN Chest pain. COMPARISON: Chest Single View dated 07/04/2020; Chest Single View dated 07/30/2016; CHEST SINGLE VIEW d ated 05/29/2014; CHEST SINGLE VIEW dated 10/28/2013 FINDINGS: Portable technique limits examination quality. Asymmetric pulmonary opacities are present, greater on the left. This may represent asymmetric pulmon horacio edema or viral infection. The heart is normal in size. Sternotomy wires are present.
[2020-12-05 09:00] VITALS: O2SAT 98
[2020-12-05] MEDS ORDERED: ASPIRIN EC 81 MG TAB PO SCH (09:00)
[2020-12-05] MEDS ORDERED: ISOSORBIDE MONO SR 30 MG TAB PO SCH (09:00)
[2020-12-05] MEDS ORDERED: allopurinoL 100 MG TAB PO SCH (09:00)
[2020-12-05] MEDS ORDERED: lisinopriL 20 MG TAB PO SCH (09:00)
[2020-12-05] MEDS ORDERED: METOPROLOL TAR 50 MG TAB PO SCH (09:00)
[2020-12-05] MEDS ORDERED: CLOPIDOGREL 75 MG TABLET PO SCH (09:00)
[2020-12-05] MEDS ORDERED: SITAGLIPTIN PHOS 100 MG TAB PO SCH (09:00)
[2020-12-05] MEDS ORDERED: ENOXAPARIN 40 MG/0.4 ML SQ SCH (09:00)
--- NOTE | 2020-12-05 12:37 | P.DS ---
Admission Date: 12/05/20 Discharge Date: 12/05/20 Primary Care Provider: Dr. Steen Disposition: ROUTINE DISCHARGE Discharge Condition: GOOD Reason for Admission: Chest pain Consultations: Cardiology - Dr. Ying Procedures: CXR (12/05): Asymmetric pulmonary opacities are present, greater on the left. This may represent asymmetric pulmonary edema or viral infection. The heart is normal in size. Sternotomy wires are present. Problem List Atypical chest pain history of CAD status post three-vessel CABG 2012, stent 2016 Diabetes type 2 with hyperglycemia, insulin dependent Hypertension Hyperlipidemia Gout Brief History of Present Illness: 50-year-old -Citizen Of [place] male with history of CAD status post CABG, diabetes type 2, hypertension, hyperlipidemia, gout presents emergency department for chest pain. Patient reports that he was resting on the couch when he got a sudden onset of pressure-like chest pain rated 8 out of 10 with associated shortness of breath and diaphoresis. Pain was nonradiating, not relieved with nitroglycerin. Patient denies similar episodes. Patient was evaluated in the emergency department, initial EKG without ST changes, first troponin negative hemoglobin 12.0 hematocrit 35.8 glucose 331. ED provider wishes to admit for further evaluation and management of chest pain. Hospital Course: Patient had resolution of his chest pain. Troponins were trended and negative x3. Cardiology was consulted and recommended no further evaluation due to atypical nature of his chest pain and negative troponins. He was discharged home to / with PCP in 3-5 days. Follow up with Cardiology in the next few weeks. No changes were made to his medications. Vital Signs/Physical Exam: Physical Exam: Gen: NAD, AAOx3 HEENT: normal conjunctiva, sclera anicteric CV: regular rate and rhythm, no murmur Pulm: clear to auscultation bilaterally, nonlabored respirations on room air Abd: soft, NTND Ext: no edema Temp Pulse Resp BP Pulse Ox 98.0 F 50 12 130/94 H 98 12/05/20 08:00 12/05/20 08:00 12/05/20 08:00 12/05/20 08:00 12/05/20 08:00 Laboratory Data at Discharge: WBC 6.10 K/uL (4.3-10.9) 12/05/20 01:52 Hgb 12.0 g/dL (13.6-17.9) L 12/05/20 01:52 Hct 35.8 % (39.6-49.0) L D 12/05/20 01:52 Plt Count 351 K/uL (152-406) 12/05/20 01:52 PT 11.5 SECONDS (9.5-12.5) 12/05/20 01:52 INR 1.00 12/05/20 01:52 Sodium 136 mmol/L (136-145) 12/05/20 01:52 Potassium 4.9 mmol/L (3.5-5.1) 12/05/20 01:52 BUN 17 mg/dL (7-18) 12/05/20 01:52 Creatinine 1.12 mg/dL (0.55-1.3) 12/05/20 01:52 Glucose 331 mg/dL (74-106) H 12/05/20 01:52 Magnesium 2.0 mg/dL (1.8-2.4) 12/05/20 01:52 Total Bilirubin 0.7 mg/dL (0.2-1.0) 12/05/20 01:52 AST 20 U/L (15-37) 12/05/20 01:52 ALT 41 U/L (12-78) 12/05/20 01:52 Alkaline Phosphatase 61 U/L (45-117) 12/05/20 01:52 Troponin I Cancelled 12/05/20 11:56 Triglycerides 433 mg/dL (<150) H 12/05/20 05:56 Cholesterol 280 mg/dL (<200) H 12/05/20 05:56 LDL Cholesterol Direct 181 mg/dL (100-129) H 12/05/20 05:56 HDL Cholesterol 34 mg/dL (40-60) L 12/05/20 05:56 Cholesterol/HDL Ratio 8.24 12/05/20 05:56 Home Medications: Allopurinol 1 tab PO DAILY 07/05/20 Clopidogrel Bisulfate [Plavix] 1 tab PO DAILY 07/05/20 Insulin Glargine,Hum.rec.anlog [Lantus Solostar] 30 unit SQ DAILY AT SUPPER 30 Days #12 ml 07/05/20 Isosorbide Mononitrate [Isosorbide Mononitrate ER] 1 tab PO DAILY 07/05/20 Lisinopril [Zestril] 1 tab PO BID 07/05/20 Metoprolol Tartrate [Lopressor] 1 tab PO DAILY 07/05/20 Rosuvastatin Calcium [Crestor] 1 tab PO DAILY 07/05/20 Physician Discharge Instructions: Your chest pain was evaluated by chest x-ray, EKG, and cardiac enzymes - all normal and without signs of heart attack. Cardiology was consulted and recommended no further workup and to follow up with your online merchandising manager. Recommend continuing your home medications as previously prescribed, with the exception of increasing your lantus from 5 units to 15 units. Follow up with your PCP in ~3-5 days. Follow up with a Video Effects Editor of your choice: DOUGLAS ALLRED, [address] [address] IVON ALLRED, SENG [address] [place] [id number] Diet: ADA Activity: Ad arben Followup: NONE,NONE [Primary Care Provider] - Time spent managing pt's care (in minutes): 50
[2020-12-05 12:51] VITALS: BP 108/77
[2020-12-05] MEDS ORDERED: INSULIN GLARGINE 100 UNITS/ML SQ SCH (17:00)
[2020-12-05] MEDS ORDERED: ROSUVASTATIN 10 MG TAB PO SCH (21:00)
--- NOTE | 2020-12-08 07:36 | CON ---
History Of Present Illness: The patient is a 50-year-old who was admitted to Dr. Kirby's service [facility] of chest pain. He has a history of diabetes, hypertension, dyslipidemia, gout, coronary artery disease. He is status post stent and coronary artery bypass surgery. He claimed that his chest pain is not the same as he had when he had his heart attack. His chest pain was left lateral, more arnav ess than pressure, worse on moving. No nausea, vomiting, diaphoresis, PND, orthopnea, pedal edema, p alpitations, or syncope. Denied any fever, chills, or cough. At the time I saw him, he has already ruled out for an DE. Allergies: NONE. Review of Systems: Negative. Social History: Negative. Family History: Noncontributory. Medications: His medications at home include allopurinol, aspirin, Januvia, glipizide, Lantus insuli n, Plavix, metoprolol, fish oil, lisinopril, Crestor, and Imdur. Physical Examination: Vital Signs: Stable. He was afebrile. HEENT: Negative. Neck: Supple without bruit, lymphadenopathy, JVD, or thyromegaly. Chest: Clear to auscultation and percussion. Cardiac: Revealed a regular rhythm and rate. No murmurs, gallops, or rubs. Abdomen: Benign. Extremities: Revealed no clubbing, cyanosis, or edema. Diagnostic Data: Within normal limit except for a glucose of 243. His troponin was negative. His T SH was slightly elevated. His cholesterol was 280, his triglycerides 433, LDL of 181, and HDL of 34. His EKG was unremarkable. Chest x-ray was unremarkable. Troponin was negative. BNP was negative. Impression And Plan: Atypical chest pain in a patient with hypertension, dyslipidemia, diabetes, cor onary artery disease, status post bypass and stent in the past. He has ruled out and I am comfortabl e with him going home. I think his pain is atypical, probably musculoskeletal. Nevertheless, I thin k he needs to be compliant with his medicine and I think he needs to have his dyslipidemia addressed, still very poorly controlled on Crestor 40 mg daily. He may be a candidate for Repatha down the jess d. His diabetes should be better controlled. The patient will follow up with his commissioning engineer that he has been seen I believe Dr. Arzola. I will discuss the case further with Dr. Kirby. OSCAR/POLLO Voice ID: [id number] Report ID: [id number]
== END 2020-12-05 13:10 | disposition home or self-care (01) ==
LOC: ER 01:34 → ERHOLD 03:07
PROVIDERS: ADMIT Hospitalist; ATTEND Hospitalist
DX: R07.89 Other chest pain (principal); I25.10 Atherosclerotic heart disease of native coronary artery without angina pectoris; E11.65 Type 2 diabetes mellitus with hyperglycemia; I10 Essential (primary) hypertension; E78.5 Hyperlipidemia, unspecified; M10.9 Gout, unspecified; E78.00 Pure hypercholesterolemia, unspecified; I25.2 Old myocardial infarction; Z95.1 Presence of aortocoronary bypass graft; Z95.5 Presence of coronary angioplasty implant and graft; Z79.4 Long term (current) use of insulin; Z79.02 Long term (current) use of antithrombotics/antiplatelets; Z20.822 Contact with and (suspected) exposure to COVID-19
CPT/HCPCS: 93005; 85025; 80048; 36415; 83721; 83735; 85610; 80061; 82947 ×3; 85379; 80076; 84443; 81003; 84484 ×3; 84439; 83880; 71045; 96374; 99285; U0003; G0378 ×2; J1650

== ENCOUNTER 2021-11-17 18:30 | Emergency (ER) | payer OTHER ==
[2021-11-17] MEDS ORDERED: FENTANYL CITR 100 MCG/2 ML ONE (20:39)
[2021-11-17] MEDS ORDERED: NA CHLORIDE 0.9% 500 ML ONE (20:39)
[2021-11-17 20:43] LABS: Absolute Lymphocytes (CBC) 2.1 K/uL (0.7-4.9); Hematocrit 39.3 % (39.6-49.0); Lymphocytes % 29.3 % (15.3-44.8); MCV 93.8 fL (80-100); MPV 8.4 fL (7.6-11.3); RBC Red Blood Cell Count 4.19 M/uL (4.33-5.43)
[2021-11-17 21:02] LABS: Potassium 4.4 mmol/L (3.5-5.1)
--- NOTE | 2021-11-17 22:02 | RAD REPORT ---
EXAM DESCRIPTION: CT - Chest For Pe Angio - 11/17/2021 9:50 pm CLINICAL HISTORY: Chest pain COMPARISON: 2013 TECHNIQUE: Dynamically enhanced axial 3 mm thick images of the chest were obtained during administra tion of <100> mL Isovue 370 IV contrast. Coronal and oblique reconstruction images were generated and reviewed. Exam utilizes a protocol for optimal evaluation of pulmonary arterial tree. Maximum intensity projections 3D imaging was utilized All CT scans are performed using dose optimization technique as appropriate and may include automated exposure control or mA/KV adjustment according to patient size. FINDINGS: A pulmonary embolus is not seen. A thoracic aortic aneurysm is not noted. A pleural effusion is not seen. A pericardial effusion is not seen. A lung consolidation is not present. IMPRESSION: Negative for a pulmonary embolism.
--- NOTE | 2021-11-17 22:02 | RAD REPORT ---
EXAM DESCRIPTION: [place] Single View11/17/2021 8:21 pm CLINICAL HISTORY: Chest pain COMPARISON: 2020 FINDINGS: Postsurgical changes involve the chest Lungs appear clear of acute infiltrate. Heart is borderline enlarged IMPRESSION: No acute abnormalities displayed
[2021-11-17] MEDS ORDERED: INSULIN -REGULAR HUMAN 50 UNIT/0.5 ML ML ONE (22:10)
[2021-11-17] MEDS ORDERED: NA CHLORIDE 0.9% 1,000 ML ONE (22:10)
[2021-11-17] MEDS ORDERED: BEBTELOVIMAB 175 MG/2 ML VIAL IV ONE (22:38)
--- NOTE | 2021-11-17 23:24 | ER ---
Nurse's Notes [facility] Name: Manfred Canales Jr Age: 51 yrs Sex: Male : 1970 Arrival Date: 11/17/2021 Time: 18:32 Bed 30 Private MD: Diagnosis: SARS-associated coronavirus as the cause of diseases classified elsewhere;Dehydration;Hyperglycemia, unspecified Presentation: 11/17 19:26 Chief complaint: Body aches, SOB, chest tightness, cough, and congestion x 6 days. hb Tested COVID positive 5 days ago. Coronavirus screen: Client presents with at least one sign or symptom that may indicate coronavirus-19. Standard/surgical mask placed on the client. Provider contacted for isolation considerations. Ebola Screen: No symptoms or risks identified at this time. Initial Sepsis Screen: Does the patient meet any 2 criteria? No. Patient's initial sepsis screen is negative. Does the patient have a suspected source of infection? No. Patient's initial sepsis screen is negative. Risk Assessment: Do you want to hurt yourself or someone else? Patient reports no desire to harm self or others. Onset of symptoms was November 11, 2021. 19:26 Method Of Arrival: Ambulatory 19:26 Acuity: ISABEL 3 hb Triage Assessment: 20:00 General: Appears in no apparent distress. uncomfortable, Behavior is calm, cooperative, vc1 appropriate for age. Respiratory: Onset: The symptoms/episode began/occurred. Respiratory: Reports shortness of breath the patient has mild shortness of breath. Historical: - Allergies: 19:28 No Known Drug Allergies; hb - PMHx: 19:28 Diabetes - NIDDM; High Cholesterol; Hypertension; Myocardial infarction; Gout; hb - PSHx: 19:28 Coronary artery bypass graft; Stented artery; hb - Immunization history:: Client reports receiving the 2nd dose of the Covid vaccine. - Social history:: Smoking status: Patient denies any tobacco usage or history of. - Family history:: not pertinent. - Hospitalizations: : No recent hospitalization is reported. Screenin/19 00:03 Abuse screen: Denies threats or abuse. Nutritional screening: No deficits noted. vc1 Tuberculosis screening: No symptoms or risk factors identified. Fall Risk None identified. Assessment: 11/17 20:00 General: Appears in no apparent distress. comfortable, Behavior is calm, cooperative, vc1 appropriate for age. Pain: Complains of pain in left supraclavicular area, left clavicle, anterior aspect of left upper chest, left lateral anterior chest and left breast Pain does not radiate. Neuro: Level of Consciousness is awake, alert, obeys commands, Oriented to person, place, time, situation, Appropriate for age. Cardiovascular: Rhythm is sinus bradycardia. Respiratory: Airway is patent Respiratory effort is even, unlabored, Breath sounds are clear. GI: No deficits noted. : No deficits noted. EENT: No deficits noted. Derm: No deficits noted. 21:03 Reassessment: Patient and/or family updated on plan of care and expected duration. Pain vc1 level reassessed. Patient is alert, oriented x 3, equal unlabored respirations, skin warm/dry/pink. Patient states symptoms have improved. 23:04 Reassessment: No changes from previously documented assessment. Patient and/or family vc1 updated on plan of care and expected duration. Pain level reassessed. Patient is alert, oriented x 3, equal unlabored respirations, skin warm/dry/pink. Patient states symptoms have improved. 11/18 00:03 Reassessment: Patient and/or family updated on plan of care and expected duration. Pain vc1 level reassessed. Patient is alert, oriented x 3, equal unlabored respirations, skin warm/dry/pink. Patient states feeling better. Patient states symptoms have improved. Vital Signs: 11/17 19:26 BP 136 / 84; Pulse 59; Resp 16; Temp 97.8(TE); Pulse Ox 98% ; Weight 103.42 kg; Height hb 5 ft. 11 in. (180.34 cm); Pain 8/10; 21:03 BP 135 / 71; Pulse 61; Resp 14; Pulse Ox 97% ; vc1 22:00 BP 141 / 65; Pulse 58; Resp 14; Pulse Ox 97% on R/A; vc1 23:00 BP 122 / 77; Pulse 55; Resp 15; Pulse Ox 97% ; vc1 23:00 BP 122 / 77; Pulse 55; Resp 15; Pulse Ox 97% on R/A; vc1 19:26 Body Mass Index 31.80 (103.42 kg, 180.34 cm) ED Course: 18:32 Patient arrived in ED. as 19:28 Triage completed. hb 19:28 Arm band placed on. hb 19:35 Jagdeep Kirby MD is Attending Physician. rn 19:51 Pepper Parra RN is Primary Nurse. vc1 20:00 Patient has correct armband on for positive identification. vc1 20:23 XRAY Chest (1 view) In Process Unspecified. EDMS 21:03 Notified ED physician of a critical lab result(s). Glucose 652 Dr Kirby notified. bb 21:52 CT Chest For PE Angio In Process Unspecified. EDMS 11/18 00:03 No provider procedures requiring assistance completed. IV discontinued, intact, vc1 bleeding controlled, No redness/swelling at site. Pressure dressing applied. Administered Medications: 11/17 20:47 Drug: fentaNYL (PF) 50 mcg Route: IVP; Site: right antecubital; vc1 23:00 Follow up: BP 122 / 77; Pulse 55 bpm; Resp 15 bpm; Pulse Ox 97% vc1 20:47 Drug: NS 0.9% 500 ml Route: IV; Rate: bolus; Site: right antecubital; vc1 21:00 Follow up: IV Status: Completed infusion; IV Intake: 500ml vc1 22:09 Drug: NS 0.9% 1000 ml Route: IV; Rate: 1000 ml; Site: right antecubital; vc1 23:30 Follow up: IV Status: Completed infusion; IV Intake: 1000ml vc1 22:09 Drug: Insulin Regular Human 10 units {Co-Signature: vc1 (Pepper Parra RN).} Route: bb Sub-Q; Site: right upper arm; 11/18 00:02 Follow up: Response: No adverse reaction; Marked relief of symptoms; Blood sugar is vc1 lowered 11/17 22:09 Drug: Insulin Regular Human 5 units {Co-Signature: vc1 (Pepper Parra RN).} Route: bb IVP; Site: right antecubital; 11/18 00:01 Follow up: Response: Marked relief of symptoms; Blood sugar is lowered vc1 11/17 22:54 Drug: Bebtelovimab 175 mg Route: IV; Rate: calculated rate; Site: right antecubital; vc1 Medication: 11/18 00:04 VIS not applicable for this client. vc1 Intake: 11/17 21:00 IV: 500ml; Total: 500ml. vc1 23:30 IV: 1000ml; Total: 1500ml. vc1 Outcome: 23:23 Discharge ordered by . enmanuel 11/18 00:04 Discharged to home ambulatory. vc1 Condition: good Discharge instructions given to patient, Instructed on discharge instructions, follow up and referral plans. Demonstrated understanding of instructions, follow-up care. 00:05 Patient left the ED. vc1 Signatures: Dispatcher [employer] EDBernarda Shore Brenda, RN RN Jagdeep Robledo MD MD rn Baxter, Heather, RN RN hb Pepper Parra RN RN vc1 Pepper Parra RN vc1 Corrections: (The following items were deleted from the chart) 11/17 19:30 19:26 Chief complaint: Body aches, SOB, chest tightness, cough, and congestion x 6 hb days. hb : 19:26 Acuity: ISABEL 4 hb hb
--- NOTE | 2021-11-17 23:24 | EDPHYS ---
Physician Documentation [facility] Name: Manfred Canales Jr Age: 51 yrs Sex: Male : 1970 Arrival Date: 11/17/2021 Time: 18:32 Bed 30 Private MD: ED Physician Jagdeep Kirby HPI: 11/17 21:32 This 51 yrs old Black Male presents to ER via Ambulatory with complaints of Breathing rn Difficulty, COVID+. 21:32 The patient has shortness of breath at rest, with light activity. Onset: The rn symptoms/episode began/occurred 1 week(s) ago. Duration: The symptoms are intermittent. The patient's shortness of breath is aggravated by exertion, light activity. Associated signs and symptoms: Pertinent positives: productive cough, fever, Pertinent negatives: hemoptysis, loss of consciousness. Severity of symptoms: At their worst the symptoms were moderate in the emergency department the symptoms are unchanged. The patient has not experienced similar symptoms in the past. The patient has not recently seen a physician. Historical: - Allergies: 19:28 No Known Drug Allergies; hb - PMHx: 19:28 Diabetes - NIDDM; High Cholesterol; Hypertension; Myocardial infarction; Gout; hb - PSHx: 19:28 Coronary artery bypass graft; Stented artery; hb - Immunization history:: Client reports receiving the 2nd dose of the Covid vaccine. - Social history:: Smoking status: Patient denies any tobacco usage or history of. - Family history:: not pertinent. - Hospitalizations: : No recent hospitalization is reported. 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 Exam: 20:56 ECG was reviewed by the Attending Physician. rn 21:32 Constitutional: This is a well developed, well nourished patient who is awake, alert, rn and in no acute distress. Head/Face: Normocephalic, atraumatic. ENT: no stridor Cardiovascular: Regular rate and rhythm. No pulse deficits. Respiratory: No increased work of breathing, no retractions or nasal flaring. Abdomen/GI: Soft, non-tender Skin: Warm, dry MS/ Extremity: Pulses equal, no cyanosis. Neuro: Awake and alert, GCS 15 Vital Signs: 19:26 BP 136 / 84; Pulse 59; Resp 16; Temp 97.8(TE); Pulse Ox 98% ; Weight 103.42 kg; Height hb 5 ft. 11 in. (180.34 cm); Pain 8/10; 21:03 BP 135 / 71; Pulse 61; Resp 14; Pulse Ox 97% ; vc1 22:00 BP 141 / 65; Pulse 58; Resp 14; Pulse Ox 97% on R/A; vc1 23:00 BP 122 / 77; Pulse 55; Resp 15; Pulse Ox 97% ; vc1 23:00 BP 122 / 77; Pulse 55; Resp 15; Pulse Ox 97% on R/A; vc1 19:26 Body Mass Index 31.80 (103.42 kg, 180.34 cm) hb MDM: 20:06 Patient medically screened. rn 23:20 Differential diagnosis: Anemia pneumonia, Pneumothorax pulmonary edema, Pulmonary rn Embolism hyperglycemia, DKA. Data reviewed: vital signs, nurses notes, lab test result(s), EKG, radiologic studies, CT scan, plain films, and as a result, I will discharge patient. Counseling: I had a detailed discussion with the patient and/or guardian regarding: the historical points, exam findings, and any diagnostic results supporting the discharge/admit diagnosis, lab results, radiology results, the need for outpatient follow up, to return to the emergency department if symptoms worsen or persist or if there are any questions or concerns that arise at home. Response to treatment: the patient's symptoms have markedly improved after treatment, and as a result, I will discharge patient. Special discussion: I discussed with the patient/guardian in detail that at this point there is no indication for admission to the hospital. It is understood, however, that if the symptoms persist or worsen the patient needs to return immediately for re-evaluation. Based on the history and exam findings, there is no indication for further emergent testing or inpatient evaluation. I discussed with the patient/guardian the need to see the primary care provider for further evaluation of the symptoms. ED course: Pt without oxygen requirement, stable vitals, cxr neg, ct chest for PE neg. Given monoclonal antibodies. Glucose elevated, not acidotic, ate prior to coming in, and states glucose has been "ok" when checking it at home. Will dc home with pcp f/u and given return precautions. Dont want to lower glucose too low given nighttime and is going to go home and sleep. . 11/17 20:13 Order name: CBC with Diff; Complete Time: 21:17 rn 11/17 20:13 Order name: Basic Metabolic Panel; Complete Time: 21:17 rn 11/17 20:13 Order name: Troponin High Sensitivity; Complete Time: 21:17 rn 11/17 23:24 Order name: Glucose, Ancillary Testing; Complete Time: 23:34 EDMS 11/17 19:35 Order name: XRAY Chest (1 view); Complete Time: 22:10 rn 11/17 20:13 Order name: CT Chest For PE Angio; Complete Time: 22:10 rn 11/17 20:13 Order name: IV Start; Complete Time: 20:47 rn 11/17 20:13 Order name: EKG; Complete Time: 20:14 rn 11/17 20:13 Order name: EKG - Nurse/Tech; Complete Time: 20:47 rn 11/17 20:13 Order name: Cardiac monitoring; Complete Time: 20:47 rn 11/17 20:13 Order name: O2 Sat Monitoring; Complete Time: 20:47 rn 11/17 23:09 Order name: Glucose Level; Complete Time: 23:17 rn EC:56 Rate is 54 beats/min. Rhythm is regular. QRS [place] is Normal. [place] interval is normal. QRS rn interval is normal. QT interval is normal. No Q waves. T waves are Normal. No ST changes noted. Clinical impression: NSR w/ Non-specific ST/T Changes. Interpreted by me. Reviewed by me. Administered Medications: 20:47 Drug: fentaNYL (PF) 50 mcg Route: IVP; Site: right antecubital; vc1 23:00 Follow up: BP 122 / 77; Pulse 55 bpm; Resp 15 bpm; Pulse Ox 97% vc1 20:47 Drug: NS 0.9% 500 ml Route: IV; Rate: bolus; Site: right antecubital; vc1 21:00 Follow up: IV Status: Completed infusion; IV Intake: 500ml vc1 22:09 Drug: NS 0.9% 1000 ml Route: IV; Rate: 1000 ml; Site: right antecubital; vc1 23:30 Follow up: IV Status: Completed infusion; IV Intake: 1000ml vc1 22:09 Drug: Insulin Regular Human 10 units {Co-Signature: 1 (Pepper Parra RN).} Route: bb Sub-Q; Site: right upper arm; 11/18 00:02 Follow up: Response: No adverse reaction; Marked relief of symptoms; Blood sugar is vc1 lowered 11/17 22:09 Drug: Insulin Regular Human 5 units {Co-Signature: vc1 (Pepper Parra RN).} Route: bb IVP; Site: right antecubital; 11/18 00:01 Follow up: Response: Marked relief of symptoms; Blood sugar is lowered vc1 11/17 22:54 Drug: Bebtelovimab 175 mg Route: IV; Rate: calculated rate; Site: right antecubital; vc1 Disposition Summary: 11/17/21 23:23 Discharge Ordered Location: Home rn Problem: new rn Symptoms: have improved rn Condition: Stable rn Diagnosis - SARS-associated coronavirus as the cause of diseases classified elsewhere rn - Dehydration rn - Hyperglycemia, unspecified rn Followup: rn - With: Private Physician - When: As needed - Reason: Recheck today's complaints, Re-evaluation by your physician Discharge Instructions: - Discharge Summary Sheet rn - Dehydration, Adult rn - Hyperglycemia rn - Blood Glucose Monitoring, Adult rn - COVID-19 rn - 10 Things You Can Do to Manage Your COVID-19 Symptoms at Home - [facility] rn - Viral Illness, Adult rn Forms: - Medication Reconciliation Form rn - Thank You Letter rn - Antibiotic pattern filer - Prescription Opioid Use rn Signatures: Dispatcher [employer] Tammy Burk RN Jagdeep Reyes MD MD rn Baxter, Heather, RN RN hb Calcote, Vanessa, RN RN vc1 Pepper Parra RN vc1
[2021-11-18 00:27] VITALS: TEMP 97.8
[2021-11-18 00:29] VITALS: O2SAT 97
[2021-11-18 00:33] VITALS: BP 122/77
--- NOTE | 2021-11-18 08:14 | EKG ---
Test Date: 2021-11-17 Test Time: 20:42:04 Church Organist: CHRISTINA MEASUREMENT RESULTS: Intervals: Rate: 54 ND: 186 QRSD: 102 QT: 476 QTc: 451 [place]: P: 55 ND: 186 QRS: 84 T: 71 INTERPRETIVE STATEMENTS: Sinus bradycardia Possible Left atrial enlargement Borderline ECG Compared to ECG 12/05/2020 01:35:39 Sinus rhythm no longer present Right-axis deviation no longer present Electronically Signed On 11-18-21 08:12:30 CDT by Irwin Ying
== END 2021-11-18 00:05 | disposition home or self-care (01) ==
LOC: ER 18:30
DX: U07.1 COVID-19 (principal); E86.0 Dehydration; E11.65 Type 2 diabetes mellitus with hyperglycemia; I10 Essential (primary) hypertension; Z95.1 Presence of aortocoronary bypass graft
CPT/HCPCS: 96361; 93005; 85025; 80048; 36415; 82947; 84484; 71275; 71045; 96375; 96372; 96374; 99284; Q9967; J1815; J3010; J7040; J7030

== ENCOUNTER 2022-06-25 12:03 | Emergency (ER) | payer OTHER ==
--- OUTSIDE RECORDS SUMMARY | 2022-06-25 12:08 | XMS REPORT | Continuity of Care Document ---
:1970 Author Organization [facility] t Address Formerly [facility] [place] [address] Care Team Providers Name Role Phone Charbel Dean Primary Care Physician AICHA DORSEY Attending Clinician Unavailable ROSENDA IBRAHIM Attending Clinician Unavailable Rosenda Ibrahim MD Attending Clinician LU FIELDS Attending Clinician Unavailable Lu Hobson Attending Clinician Doctor Unassigned, [place] Attending Clinician Unavailable LEANNA YANG Attending Clinician Unavailable Leanna Carbajal Attending Clinician Priscila Benítez Attending Clinician PRISCILA BRISENO Attending Clinician Unavailable LU FIELDS Admitting Clinician Unavailable PRISCILA BRISENO Admitting Clinician Unavailable Payers Payer Name Policy Type Policy Number Effective Date Expiration Date Saira PLATT CHOICE [id number] 2020 00:00:00 Problems Condition Condition Condition Status Onset Resolution Last Treating Co mments Source Name Details Category Date Date Treatment Clinician Date Erectile Erectile Disease Active Unive rs dysfunctio dysfunctio 3-03 it y of n, n, 00:00: [place] unspecifie unspecifie 00 Me dical d erectile d erectile Br anch dysfunctio dysfunctio n type n type Prostate Prostate Disease Active Unive rs cancer cancer 3- it[place] of [place] [facility] [place] Other Other Disease Active [facility] specified specified 3 ity of diabetes diabetes 00:00: [place] mellitus mellitus 00 Medica l with with Branch hyperglyce hyperglyce carmen, carmen, unspecifie unspecifie d whether d whether 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 insulin insulin use use Benign Benign Disease Active Univers prostatic prostatic 07-03 [place] of hyperplasi hyperplasi [place] without a without 00 Medi marilia lower lower Branch urinary urinary tract tract symptoms symptoms Cellulitis Cellulitis Disease Active 2018-05 U nivers , gluteal, , gluteal, 1-28 it y of left left 00:00: [place] [facility] Obesity Obesity Disease Active 2015-05 Univers (BMI (BMI 1-23 ity of 30-39.9) 30-39.9) 00:00: [place] [facility] Chest pain Chest pain Disease Active U nivers 5-23 ity of 00:00: [place] [facility] Atheroscle Atheroscl Problem Active 2021-06-27 Memoria r-limb&cla er-limb&cl 03:45:02 l udic audic Uri Active Problem 06/27/2021 Ness Arzola Hx of CABG Hx of Diagnosis Active 2020-12-09 Memoria CABG 02:46:01 l Active [place] Diagnosis 12/09/2020 Ness Arzola Pre-operat Pre-opera Diagnosis Active 2020-12-09 Memoria harriett tive 02:46:01 l cardiovasc cardiovasc He ninfa maldonado examinatio examinatio n n Active Diagnosis 12/09/2020 Ness Arzola Shortness Shortness Diagnosis Active 2020-12-09 Memoria of breath of breath 02:46:01 l Active [place] Diagnosis 12/09/2020 Ness Arzola Atheroscle Atheroscl Diagnosis Active 2020-12-09 Memoria r of er of 02:46:01 l [place] artery of artery of both legs both legs with with intermit intermit claudicati claudicati on on Active Diagnosis 12/09/2020 Ness Arzola Atheroscle Atheroscl Diagnosis Active 2020-12-09 Memoria rosis of erosis of 02:46:01 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 Active Diagnosis 12/09/2020 Ness Arzola Other Other Diagnosis Active 2020-12-09 Mem oria symptoms symptoms 02:46:01 l involving involving Herm aziza cardiovasc cardiovasc ular ular system system Active Diagnosis 12/09/2020 Ness Arzola 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-06-27 Samuel mike 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, II, uncontroll uncontroll ed ed Active Problem 06/27/2021 Ness Arzola Benign Benign Problem Active 2021-06-27 Samuel mike hypertensi hypertensi 03:45:02 l ve heart ve heart [place] n disease disease without without congestive congestive heart heart failure failure Active Problem 06/27/2021 Ness Arzola Reflux Reflux Problem Active 2021-06-27 Samuel mike esophagiti esophagiti 03:45:02 l s s Active Uri Problem 06/27/2021 Ness Arzola Precordial Precordia Diagnosis Active 2021-04-09 Memoria pain l pain 03:46:52 l Active Uri Diagnosis 04/09/2021 Ness Arzola 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 Memor ia hyperchole hyperchole 03:45:02 l sterolemia sterolemia He rmann Active Problem 06/27/2021 Ness Arzola Allergies, Adverse Reactions, Alerts Allergy Allergy Status Severity Reaction(s) Onset Inactive Treating Comm ents Source Name Type Date Date Clinician NO KNOWN Drug Active Univers ALLERGIE Class ity of S [facility] Social History Social Habit Start Date Stop Date Quantity Comments Source Exposure to 2022-04-10 2022-04-20 Not sure [facility] SARS-CoV-2 00:00:00 15:45:00 [facility] (event) [place] Tobacco use and 2022-04-20 2022-04-20 Smokeless tobacco Un iversity of exposure 00:00:00 00:00:00 non-user [facility] Alcohol intake 2022-04-20 2022-04-20 .14 /d [facility] 00:00:00 00:00:00 [facility] Sex [birth year] At [birth year] Univers y of 00:00:00 00:00:00 [facility] Smoking Status Start Date Stop Date Source Never smoked tobacco [facility] Medications Ordered Filled Start Stop Current Ordering Indication Dosage Frequency Signature Comments Components Source Medication Medication Date Date Medication? Clinician (SIG) Name Name lidocaine 2021-05 No 10mL 10 mL, Unive rs 1% (PF) 06-18 Infiltrati ity o f (XYLOCAINE) 03:19: 02:50 on, ONCE, [place] injection 00 :00 1 dose, On Medi marilia 10 mL [facility] 04/16/22 at 2130, Routine lidocaine-r 2021-05 No 3mL 3 mL, Univ ers acepinep-te 06-18 Topical, ity of tracaine 02:15: 01:42 ONCE, 1 [place] (L.E.T. 00 :00 dose, On Medical (LIDO-EPINE [facility] PH-TETRA)) 04/16/22 4-0.05-0.5 at 2015, % topical Routine gel 3 mL isosorbide Yes isosorbide U nivers mononitrate -03 mononitrat it y of 30 mg 24 hr 11:22: e ER 30 mg [place] tablet 04 tablet,ext Medical ended Branch release 24 hr metFORMIN Yes metformin Uni vers 1,000 mg 3-03 1,000 mg ity of tablet 11:22: tablet [place] [address] Medical [place] metFORMIN Yes metformin Uni vers 850 mg 3-03 850 mg ity of tablet 11:22: tablet [address] LOVAZA, 2022-0 Yes omega-3 Univers omega-3-aci 3-03 acid ethyl it y of d ethyl 11:22: esters 1 [place] esters, 1 04 gram Medical gram capsule Branch capsule pantoprazol Yes pantoprazo Univers e 40 mg EC 3-03 le 40 mg ity o f tablet 11:22: tablet,del [place] [address] ay Medical release Branch tapentadoL Yes Nucynta ER U nivers (NUCYNTA 3-03 150 mg ity of ER) 150 mg 11:22: tablet,ext [place] Tb12 04 ended Medical release Branch Take 1 tablet every 12 hours by oral route as directed for 30 days. topiramate Yes topiramate U nivers 25 mg 3-03 25 mg ity of tablet 11:22: tablet [address] isosorbide Yes isosorbide U nivers mononitrate 3-03 mononitrat it y of 30 mg 24 hr 11:22: e ER 30 mg [place] tablet 04 tablet,[facility] Medical ended Branch release 24 hr metFORMIN Yes metformin Uni vers 1,000 mg 3-03 1,000 mg ity of tablet 11:22: tablet [address] metFORMIN Yes metformin Uni vers 850 mg 3-03 850 mg ity of tablet 11:22: tablet [address] LOVAZA, Yes omega-3 Univers omega-3-aci 3-03 acid ethyl it y of d ethyl 11:22: esters 1 [place] esters, 1 04 gram Medical gram capsule Branch capsule pantoprazol Yes pantoprazo Univers e 40 mg EC 3-03 le 40 mg ity o f tablet 11:22: tablet,[address] release Branch tapentadoL Yes Nucynta ER U nivers (NUCYNTA 3-03 150 mg ity of ER) 150 mg 11:22: tablet,ext [place] Tb12 04 ended Medical release Branch Take 1 tablet every 12 hours by oral route as directed for 30 days. topiramate Yes topiramate U nivers 25 mg 3-03 25 mg ity of tablet 11:22: tablet [address] isosorbide Yes isosorbide U nivers mononitrate 3-03 mononitrat it y of 30 mg 24 hr 11:22: e ER 30 mg [place] tablet 04 tablet,ext Medical ended Branch release 24 hr metFORMIN Yes metformin Uni vers 1,000 mg 3-03 1,000 mg ity of tablet 11:22: tablet [address] metFORMIN Yes metformin Uni vers 850 mg 3-03 850 mg ity of tablet 11:22: tablet [address], Yes omega-3 Univers omega-3-aci 3-03 acid ethyl it y of d ethyl 11:22: esters 1 [place] esters, 1 04 gram Medical gram capsule Branch capsule pantoprazol Yes pantoprazo Univers e 40 mg EC 3-03 le 40 mg ity o f tablet 11:22: tablet,[address] release [place] tapentadoL Yes Nucynta ER U nivers (NUCYNTA 3-03 150 mg ity of ER) 150 mg 11:22: tablet,ext [place] Tb12 ended Medical release Branch Take 1 tablet every 12 hours by oral route as directed for 30 days. topiramate Yes topiramate U nivers 25 mg 3-03 25 mg ity of tablet 11:22: tablet [address] isosorbide Yes isosorbide U nivers mononitrate 3-03 mononitrat it y of 30 mg 24 hr 11:22: e ER 30 mg [place] tablet 04 tablet,ext Medical ended Branch release 24 hr metFORMIN Yes metformin Uni vers 1,000 mg 3-03 1,000 mg ity of tablet 11:22: tablet [address] metFORMIN Yes metformin Uni vers 850 mg 3-03 850 mg ity of tablet 11:22: tablet [address] LOVAZA, Yes omega-3 Univers omega-3-aci 3-03 acid ethyl it y of d ethyl 11:22: esters 1 [place] esters, 1 04 gram Medical gram capsule Branch capsule pantoprazol Yes pantoprazo Univers e 40 mg EC 3-03 le 40 mg ity o f tablet 11:22: tablet,[address] release Branch tapentadoL Yes Nucynta ER U nivers (NUCYNTA 3-03 150 mg ity of ER) 150 mg 11:22: tablet,ext [place] Tb12 04 ended Medical release Branch Take 1 tablet every 12 hours by oral route as directed for 30 days. topiramate Yes topiramate U nivers 25 mg 3-03 25 mg ity of tablet 11:22: tablet [place] [address] Medical Branch isosorbide Yes isosorbide U nivers mononitrate 3-03 mononitrat it y of 30 mg 24 hr 11:22: e ER 30 mg [place] tablet 04 tablet,ext Medical ended Branch release 24 hr metFORMIN Yes metformin Uni vers 1,000 mg 3-03 1,000 mg ity of tablet 11:22: tablet [place] [address] Medical Branch metFORMIN Yes metformin Uni vers 850 mg 3-03 850 mg ity of tablet 11:22: tablet [place] [address] Medical Branch LOVAZA, Yes omega-3 Univers omega-3-aci 3-03 acid ethyl it y of d ethyl 11:22: esters 1 [place] esters, 1 04 gram Medical gram capsule Branch capsule pantoprazol Yes pantoprazo Univers e 40 mg EC -03 le 40 mg ity o f tablet 11:22: tablet,del [place] 04 ayed Medical release Branch tapentadoL Yes Nucynta ER U nivers (NUCYNTA 3-03 150 mg ity of ER) 150 mg 11:22: tablet,ext [place] Tb12 04 ended Medical release Branch Take 1 tablet every 12 hours by oral route as directed for 30 days. topiramate Yes topiramate U nivers 25 mg 3-03 25 mg ity of tablet 11:22: tablet [place] [address] Medical Branch aspirin 81 Yes 1{tbl} Take 1 Uni vers mg Cap -03 tablet by ity of 11:22: mouth [place] 03 daily. Medical Branch B-complex Yes Super B Unive rs with 3-03 Complex-Vi ity of vitamin C 11:22: tamin C [place] (SUPER B 03 Medical COMPLEX-VIT Branch STRINGER C ORAL) atenoloL 50 Yes 1{tbl} Take 1 Un savi mg tablet 3-03 tablet by ity o f 11:22: mouth [place] 03 daily. Medical Branch clopidogreL Yes clopidogre Univers 75 mg 3-03 l 75 mg ity of tablet 11:22: tablet Medical Branch cyclobenzap Yes cyclobenza Univers rine 5 mg 3-03 holden 5 mg ity of tablet 11:22: tablet Medical Branch ezetimibe Yes Zetia 10 Univ ers (ZETIA) 10 3-03 mg tablet ity of mg tablet 11:22: Take 1 03 tablet Medical every day Branch by oral route. gabapentin Yes Horizant Uni vers enacarbil 3-03 ER 600 mg ity o f (HORIZANT) 11:22: tablet,ext [place] 600 mg TbSR ended Medical release Branch aspirin 81 Yes 1{tbl} Take 1 Uni vers mg Cap 3- tablet by ity of 11:22: mouth [place] 03 daily. Medical Branch B-complex Yes Super B Unive rs with 3-03 Complex-Vi ity of vitamin C 11:22: tamin C [place] (SUPER B 03 Medical COMPLEX-VIT Branch STRINGER C ORAL) atenoloL 50 Yes 1{tbl} Take 1 Un savi mg tablet - tablet by ity o f 11:22: mouth [place] 03 daily. Medical Branch clopidogreL Yes clopidogre Univers 75 mg 3-03 l 75 mg ity of tablet 11:22: tablet Medical Branch cyclobenzap Yes cyclobenza Univers rine 5 mg 3-03 holden 5 mg ity of tablet 11:22: tablet Medical Branch ezetimibe Yes Zetia 10 Univ ers (ZETIA) 10 3-03 mg tablet ity of mg tablet 11:22: Take 1 [place] 03 tablet Medical every day Branch by oral route. gabapentin Yes [facility]izant Uni vers enacarbil 3-03 ER 600 mg ity o f (HORIZANT) 11:22: tablet,ext [place] 600 mg TbSR 03 ended Medical release Branch aspirin 81 Yes 1{tbl} Take 1 Uni vers mg Cap 3-03 tablet by ity of 11:22: mouth [place] 03 daily. Medical Branch B-complex Yes Super B Unive rs with 3-03 Complex-Vi ity of vitamin C 11:22: tamin C [place] (SUPER B 03 Medical COMPLEX-VIT Branch STRINGER C ORAL) atenoloL 50 Yes 1{tbl} Take 1 Un savi mg tablet 3-03 tablet by ity o f 11:22: mouth [place] 03 daily. Medical Branch clopidogreL Yes clopidogre Univers 75 mg 3-03 l 75 mg ity of tablet 11:22: tablet Medical Branch cyclobenzap Yes cyclobenza Univers rine 5 mg 3-03 holden 5 mg ity of tablet 11:22: tablet Medical Branch ezetimibe Yes Zetia 10 Univ ers (ZETIA) 10 3-03 mg tablet ity of mg tablet 11:22: Take 1 tablet Medical every day Branch by oral route. gabapentin Yes [facility] Uni vers enacarbil 3-03 ER 600 mg ity o f (HORIZANT) 11:22: tablet,ext [place] 600 mg TbSR 03 ended Medical release Branch aspirin 81 Yes 1{tbl} Take 1 Uni vers mg Cap 3- tablet by ity of 11:22: mouth [place] 03 daily. Medical Branch B-complex Yes Super B [facility] rs with 3- Complex-Vi ity of vitamin C 11:22: arianna Cardenas [place] (SUPER B 03 Medical COMPLEX-VIT Branch STRINGER C ORAL) atenoloL 50 Yes 1{tbl} Take 1 Un savi mg tablet 3-03 tablet by ity o f 11:22: mouth [place] 03 daily. Medical Branch clopidogreL Yes clopidogre Univers 75 mg 3-03 l 75 mg ity of tablet 11:22: tablet Medical Branch cyclobenzap Yes cyclobenza Univers rine 5 mg 3-03 [place] 5 mg ity of tablet 11:22: tablet Medical Branch ezetimibe Yes Zetia 10 Univ ers (ZETIA) 10 3-03 mg tablet ity of mg tablet 11:22: Take 1 [place] 03 tablet Medical every day Branch by oral route. gabapentin Yes [facility] Uni vers enacarbil 3-03 ER 600 mg ity o f (HORIZANT) 11:22: tablet,ext [place] 600 mg TbSR 03 ended Medical release Branch aspirin 81 Yes 1{tbl} Take 1 Uni vers mg Cap - tablet by ity of 11:22: mouth [place] daily. Medical Branch B-complex Yes Super B Unive rs with 07-03 Complex-Vi ity of vitamin C 11:22: tamin C [place] (SUPER B 03 Medical COMPLEX-VIT Branch STRINGER C ORAL) atenoloL 50 Yes 1{tbl} Take 1 Un savi mg tablet 07-03 tablet by ity o f 11:22: mouth [place] daily. Medical Branch clopidogreL Yes clopidogre Univers 75 mg 3- l 75 mg ity of tablet 11:22: tablet Medical Branch cyclobenzap Yes cyclobenza Univers rine 5 mg 07-03 [place] 5 mg ity of tablet 11:22: tablet Medical Branch ezetimibe Yes Zetia 10 Univ ers (ZETIA) 10 3-03 mg tablet ity of mg tablet 11:22: Take 1 [place] 03 tablet Medical every day Branch by oral route. gabapentin Yes [facility] Uni vers enacarbil 3-03 ER 600 mg ity o f (HORIZANT) 11:22: tablet,ext [place] 600 mg TbSR 03 ended Medical release Branch allopurinoL Yes 100mg Take 100 U nivers 100 mg 2-23 mg by ity of tablet 00:00: mouth. Medical Branch allopurinoL Yes 100mg Take 100 U nivers 100 mg 2-23 mg by ity of tablet 00:00: mouth. Medical Branch allopurinoL Yes 100mg Take 100 U nivers 100 mg 2-23 mg by ity of tablet 00:00: mouth. Medical Branch allopurinoL Yes 100mg Take 100 U nivers 100 mg 2-23 mg by ity of tablet 00:00: mouth. Medical Branch allopurinoL Yes 100mg Take 100 U nivers 100 mg 2-23 mg by ity of tablet 00:00: mouth. [place] Medical Branch methocarbam Yes [id number] 500mg Take 1 Univers oL 2-19 tablet by ity of (ROBAXIN) 00:00: mouth 3 [place] 500 mg 00 (three) Medical tablet times Branch daily as needed for Pain (scale 4-6). acetaminoph 2021-0 Yes [id number] 1{tbl} Take 1 Un savi en-codeine 2-19 tablet by ity of (TYLENOL-CO 00:00: mouth [place] DEINE #3) 00 every 6 Medical 300-30 mg (six) Branch tablet hours as needed for Pain (scale 4-6). Indication s: acute pain lidocaine 5 2021-0 Yes [id number] 1{patch Apply 1 Univers % (700 2-19 } Patch to ity of mg/patch) 00:00: area(s) [place] patch 00 daily. Medical Branch methocarbam 0 Yes [id number] 500mg Take 1 Univers oL 2-19 tablet by ity of (ROBAXIN) 00:00: mouth 3 [place] 500 mg 00 (three) Medical tablet times Branch daily as needed for Pain (scale 4-6). acetaminoph 2021-0 Yes [id number] 1{tbl} Take 1 Un savi en-codeine 2-19 tablet by ity of (TYLENOL-CO 00:00: mouth [place] DEINE #3) 00 every 6 Medical 300-30 mg (six) Branch tablet hours as needed for Pain (scale 4-6). Indication s: acute pain lidocaine 5 2021-0 Yes [id number] 1{patch Apply 1 Univers % (700 2-19 } Patch to ity of mg/patch) 00:00: area(s) [place] patch 00 daily. Medical Branch methocarbam 2021-0 Yes [id number] 500mg Take 1 Univers oL 2-19 tablet by ity of (ROBAXIN) 00:00: mouth 3 [place] 500 mg 00 (three) Medical tablet times Branch daily as needed for Pain (scale 4-6). acetaminoph 2021-0 Yes [id number] 1{tbl} Take 1 Un savi en-codeine 2-19 tablet by ity of (TYLENOL-CO 00:00: mouth [place] DEINE #3) 00 every 6 Medical 300-30 mg (six) Branch tablet hours as needed for Pain (scale 4-6). Indication s: acute pain lidocaine 5 2021-0 Yes [id number] 1{patch Apply 1 Univers % (700 2-19 } Patch to ity of mg/patch) 00:00: area(s) [place] patch 00 daily. Medical Branch methocarbam Yes [id number] 500mg Take 1 Univers oL 2-19 tablet by ity of (ROBAXIN) 00:00: mouth 3 [place] 500 mg 00 (three) Medical tablet times Branch daily as needed for Pain (scale 4-6). acetaminoph 2021-0 Yes [id number] 1{tbl} Take 1 Un savi en-codeine 2-19 tablet by ity of (TYLENOL-CO 00:00: mouth [place] DEINE #3) 00 every 6 Medical 300-30 mg (six) Branch tablet hours as needed for Pain (scale 4-6). Indication s: acute pain lidocaine 5 Yes [id number] 1{patch Apply 1 Univers % (700 2-19 } Patch to ity of mg/patch) 00:00: area(s) [place] patch 00 daily. Medical Branch methocarbam Yes [id number] 500mg Take 1 Univers oL 2-19 tablet by ity of (ROBAXIN) 00:00: mouth 3 [place] 500 mg 00 (three) Medical tablet times Branch daily as needed for Pain (scale 4-6). acetaminoph 2021- Yes [id number] 1{tbl} Take 1 Un savi en-codeine 2-19 tablet by ity of (TYLENOL-CO 00:00: mouth [place] DEINE #3) 00 every 6 Medical 300-30 mg (six) Branch tablet hours as needed for Pain (scale 4-6). Indication s: acute pain lidocaine 5 2021- Yes [id number] 1{patch Apply 1 Univers % (700 2-19 } Patch to ity of mg/patch) 00:00: area(s) [place] patch 00 daily. Medical Branch glipiZIDE Yes Univers 10 mg 2-03 ity of tablet 00:00: Medical Branch glipiZIDE 0 Yes Univers 10 mg 2-03 ity of tablet 00:00: Medical Branch glipiZIDE 2021-0 Yes Univers 10 mg 2-03 ity of tablet 00:00: Medical Branch glipiZIDE 2021-0 Yes Univers 10 mg 2-03 ity of tablet 00:00: Medical Branch glipiZIDE 2022-0 Yes Univers 10 mg 2-03 ity of tablet 00:00: [place] [facility] Branch amLODIPine 2021-0 Yes 10mg Take 10 mg U nivers 10 mg 1-04 by mouth ity of tablet 00:00: daily. [place] 00 Medical Branch atorvastati 2021-0 Yes 40mg Take 40 mg Univers n 40 mg 1-04 by mouth ity of tablet 00:00: daily. [place] [facility] Branch amLODIPine 2021-0 Yes 10mg Take 10 mg U nivers 10 mg 1-04 by mouth ity of tablet 00:00: daily. [place] 00 Medical Branch atorvastati 0 Yes 40mg Take 40 mg Univers n 40 mg 1-04 by mouth ity of tablet 00:00: daily. [place] [facility] amLODIPine 0 Yes 10mg Take 10 mg U nivers 10 mg 1-04 by mouth ity of tablet 00:00: daily. [place] [facility] Branch atorvastati 0 Yes 40mg Take 40 mg Univers n 40 mg 1-04 by mouth ity of tablet 00:00: daily. [place] [facility] amLODIPine 2021-0 Yes 10mg Take 10 mg U nivers 10 mg 1-04 by mouth ity of tablet 00:00: daily. [place] [facility] Branch atorvastati 0 Yes 40mg Take 40 mg Univers n 40 mg 1-04 by mouth ity of tablet 00:00: daily. [place] [facility] amLODIPine 2021-0 Yes 10mg Take 10 mg U nivers 10 mg 1-04 by mouth ity of tablet 00:00: daily. [place] [facility] atorvastati 2021-0 Yes 40mg Take 40 mg Univers n 40 mg 1-04 by mouth ity of tablet 00:00: daily. [place] 00 Medical Branch glipiZIDE 2021-0 2- No 10mg Take 10 mg U nivers 10 mg 1-04 04-05 by mouth. ity of tablet 00:00: 04:59 [place] 00 :00 Medical Branch Plavix 2020-1 Yes Ahmed 1 tablet Memori a 2-08 Ahmed l 03:46: [place] 52 Plavix 2020-1 Yes Ahmed 1 tablet Memori a 2-08 Ahmed l 03:46: [place] 52 insulin 2020-0 4- No 20U inject 20 Univ ers glargine 8-18 05-15 Units ity of (LANTUS 00:00: 04:59 [place] U-100 00 :00 skin. Medical INSULIN) Branch 100 unit/mL injection insulin 2023- No 20U inject 20 Univ ers glargine 8-18 05-15 Units ity of (LANTUS 00:00: 04:59 [place] U-100 00 :00 skin. Medical INSULIN) Branch 100 unit/mL injection insulin 2023- No 20U inject 20 Univ ers glargine 8-18 05-15 Units ity of (LANTUS 00:00: 04:59 [place] U-100 00 :00 skin. Medical INSULIN) Branch 100 unit/mL injection insulin 2023- No 20U inject 20 Univ ers glargine 8-18 05-15 Units ity of (LANTUS 00:00: 04:[place] U-100 00 :00 skin. Medical INSULIN) Branch 100 unit/mL injection insulin 2023- No 20U inject 20 Univ ers glargine 8-18 05-15 Units ity of (LANTUS 00:00: 04:59 [place] U-100 00 :00 skin. Medical INSULIN) Branch 100 unit/mL injection Nexium Yes Ahmed 1 capsule Memor ia 12-09 Ahmed l 02:46: [place] Azithromyci Yes Ahmed 2 tablets Memoria n 12-09 Ahmed on the l 02:46: first day, Uri then 1 tablet daily for 4 days Super B Yes Ahmed not Memoria Complex 12-09 Ahmed defined l 02:46: [place] 01 Lantus Yes Ahmed not Memoria SoloStar 12-09 Ahmed defined l 02:46: [place] 01 Allopurinol Yes Ahmed 1 tablet M emoria 12-09 Ahmed l 02:46: [place] 01 Lovaza Yes Ahmed 4 capsules Samuel mike 12-09 Ahmed l 02:46: [place] 01 Multivitami Yes Ahmed as direct Memoria n 12-09 Ahmed l 02:46: [place] Metformin Yes Ahmed 1 tablet Mem oria HCl 12-09 Ahmed with a l 02:46: meal [place] Lisinopril Yes Ahmed 1 tablet Me moria - Ahmed l 02:46: [place] Januvia Yes Ahmed 1 tablet Memor ia 12-09 Ahmed l 02:46: [place] Crestor Yes Ahmed 1 tablet Memor ia 12-09 Ahmed l 02:46: [place] Vitamin C Yes Ahmed not Memoria 12-09 Ahmed defined l 02:46: [place] Isosorbide Yes Ahmed 1 tablet Me moria Mononitrate 12-09 Ahmed l CR 02:46: [place] Pro Air Yes Ahmed as direct Samuel mike 12-09 Ahmed l 02:46: [place] Tessalon Yes Ahmed 1 capsule Mem oria Perles 12-09 Ahmed as needed l 02:46: [place] Aspirin Yes Ahmed 1 tablet Memor ia 12-09 Ahmed l 02:46: [place] Metoprolol Yes Ahmed 1/2 tablet Memoria Tartrate 12-09 Ahmed l 02:46: Uri Nexium Yes Ahmed 1 capsule Memor ia 12-09 Ahmed l 02:46: [place] Azithromyci Yes [place] 2 tablets Memoria n 12-09 Ahmed on the l 02:46: first day, Uri then 1 tablet daily for 4 days Super B Yes Ahmed not Memoria Complex 12-09 Ahmed defined l 02:46: [place] Lantus Yes Ahmed not Memoria SoloStar 12-09 Ahmed defined l 02:46: [place] Allopurinol Yes [place] 1 tablet M emoria 12-09 Ahmed l 02:46: [place] Lovaza Yes Ahmed 4 capsules Samuel mike 12-09 Ahmed l 02:46: U[place] Multivitami Yes Ahmed as direct Memoria n 8- Ahmed l 02:46: [place] Metformin Yes Ahmed 1 tablet Mem oria HCl 12-09 Ahmed with a l 02:46: meal [place] Lisinopril Yes Ahmed 1 tablet Me moria 12-09 Ahmed l 02:46: [place] Januvia Yes Ahmed 1 tablet Memor ia 12-09 Ahmed l 02:46: [place] Crestor Yes [place] 1 tablet Memor ia 12-09 Ahmed l 02:46: [place] Vitamin C Yes Ahmed not Memoria 12-09 Ahmed defined l 02:46: [place] Isosorbide Yes [place] 1 tablet Me moria Mononitrate 12-09 Ahmed l CR 02:46: [place] Pro Air Yes Ahmed as direct Samuel mike 12-09 Ahmed l 02:46: [place] Tessalon Yes Ahmed 1 capsule Mem oria Perles 12-09 Ahmed as needed l 02:46: [place] Aspirin Yes Ahmed 1 tablet Memor ia 12-09 Ahmed l 02:46: [place] Metoprolol Yes Ahmed 1/2 tablet Memoria Tartrate 12-09 Ahmed l 02:46: [place] BLOOD-GLUCO Yes 1{each} 1 Each by Univers SE 3-16 NOT ity of METER,EDUARD 00:00: APPLICABLE [place] NUOUS MIS 00 route. Medical Branch BLOOD-GLUCO Yes 1{each} 1 Each by Univers SE 3-16 NOT ity of METER,EDUARD 00:00: APPLICABLE [place] NUOUS MIS 00 route. Medical Branch BLOOD-GLUCO Yes 1{each} 1 Each by Univers SE 3-16 NOT ity of METER,EDUARD 00:00: APPLICABLE [place] NUOUS MIS 00 route. Medical Branch BLOOD-GLUCO Yes 1{each} 1 Each by Univers SE 3-16 NOT ity of METER,EDUARD 00:00: APPLICABLE [place] NUOUS MIS 00 route. Medical Branch BLOOD-GLUCO Yes 1{each} 1 Each by Univers SE 3-16 NOT ity of METER,EDUARD 00:00: APPLICABLE [place] NUOUS MISC 00 route. Medical Branch Lisinopril 2020-0 Yes Ahmed 1 tablet Me moria 7-04 Ahmed l 02:53: [place] 17 Metoprolol 2020-0 Yes Ahmed 1/2 tablet Memoria Tartrate 7-04 Ahmed l 02:53: [place] 17 Azithromyci 2020-0 Yes Ahmed 2 tablets Memoria n 7-04 Ahmed on the l 02:53: first day, [place] 17 then 1 tablet daily for 4 days Plavix 2020-0 Yes Ahmed 1 tablet Memori a 7-04 Ahmed l 02:53: [place] 17 Metformin 2020-0 Yes Ahmed 1 tablet Mem oria HCl 7-04 Ahmed with a l 02:53: meal [place] 17 Lisinopril 2020-0 Yes Ahmed 1 tablet Me moria 7-04 Ahmed l 02:53: [place] 17 Metoprolol 2020-0 Yes Ahmed 1/2 tablet Memoria Tartrate 7-04 Ahmed l 02:53: [place] 17 Azithromyci 2020-0 Yes Ahmed 2 tablets Memoria n 7-04 Ahmed on the l 02:53: first day, [place] 17 then 1 tablet daily for 4 days Plavix 2020-0 Yes Ahmed 1 tablet Memori a 7-04 Ahmed l 02:53: [place] 17 Metformin 2020-0 Yes Ahmed 1 tablet Mem oria HCl 7-04 Ahmed with a l 02:53: meal Uri 17 Eden-3 2018- Yes 1{tbl} Take 1 Tab Un savi Fatty Acids 2-01 by mouth ity of (FISH OIL 16:35: every 6 [place] CONCENTRATE 30 (six) Medical ) 1,000 mg hours. Branch Cap Eden-3 2018-05 Yes 1{tbl} Take 1 Tab Un saiv Fatty Acids 2-01 by mouth ity of (FISH OIL 16:35: every 6 [place] CONCENTRATE 30 (six) Medical ) 1,000 mg hours. Branch Cap Eden-3 2019- Yes 1{tbl} Take 1 Tab Un savi Fatty Acids 2-01 by mouth ity of (FISH OIL 16:35: every 6 [place] CONCENTRATE 30 (six) Medical ) 1,000 mg hours. Branch Cap Eden-3 2018- Yes 1{tbl} Take 1 Tab Un savi Fatty Acids 2-01 by mouth ity of (FISH OIL 16:35: every 6 [place] CONCENTRATE 30 (six) Medical ) 1,000 mg hours. Branch Cap Eden-3 2018-05 Yes 1{tbl} Take 1 Tab Un savi Fatty Acids 2-01 by mouth ity of (FISH OIL 16:35: every 6 [place] CONCENTRATE 30 (six) Medical ) 1,000 mg hours. Branch Cap insulin NPH 2018-05 Yes [id number] 10U inject 10 Univers and regular 2-01 Units ity of human 70-30 00:00: [place] the [place] 100 unit/mL 00 skin every Me dical (70-30) morning Branch injection and evening. flash 2018-05 Yes [id number] 1U 1 Units Univ ers glucose 2-01 before ity of scanning 00:00: [place] 00 at Medical (FREESTYLE bedtime. Bran h AZUL 14 DAY READER) [facility] flash 2018-05 Yes [id number] 1{kit} 1 Kit Univ ers glucose 2-01 before ity of sensor 00:00: meals and [place] (FREESTYLE 00 at Medical AZUL 14 bedtime. Branch DAY SENSOR) Kit Insulin 2018-05 Yes [id number] Use as Uni vers Syringes, 2-01 directed ity of Disposable, 00:00: [place] [address] [facility] insulin NPH 2018-05 Yes [id number] 10U inject 10 Univers and regular 2-01 Units ity of human 70-30 00:00: [place] the [place] 100 unit/mL 00 skin every Me dical (70-30) morning Branch injection and evening. flash 2018-05 Yes [id number] 1U 1 Units Univ ers glucose 2-01 before ity of scanning 00:00: [place] Medical (FREESTYLE bedtime. Bran h AZUL 14 DAY READER) [facility] flash 2018-05 Yes [id number] 1{kit} 1 Kit Univ ers glucose 2-01 before ity of sensor 00:00: meals and [place] (FREESTYLE 00 at Medical AZUL 14 bedtime. Branch DAY SENSOR) Kit Insulin 2018-05 Yes [id number] Use as Uni vers Syringes, 2-01 directed ity of Disposable, 00:00: [place] 1 mL Syrg 00 Medical [place] insulin NPH 2018-05 Yes [id number] 10U inject 10 Univers and regular 2-01 Units ity of human 70-30 00:00: under the [place] 100 unit/mL 00 skin every Me dical (70-30) morning Branch injection and evening. flash 2018- Yes [id number] 1U 1 Units Univ ers glucose 2-01 before ity of scanning 00:00: [place] 00 [place] [facility] (FREESTYLE bedtime. Bran h AZUL 14 DAY READER) [facility] flash 2018- Yes [id number] 1{kit} 1 Kit Univ ers glucose 2-01 before ity of sensor 00:00: meals and [place] (FREESTYLE 00 at [facility] AZUL 14 bedtime. Branch DAY SENSOR) Kit Insulin 2018-05 Yes [id number] Use as Uni vers Syringes, 2- directed ity of Disposable, 00:00: [place] 1 mL Syrg 00 Medical Branch insulin NPH 2018-05 Yes [id number] 10U inject 10 Univers and regular 2-01 Units ity of human 70-30 00:00: under the [place] 100 unit/mL 00 skin every Me dical (70-30) morning Branch injection and evening. flash 2018- Yes [id number] 1U 1 Units Univ ers glucose 2-01 before ity of scanning 00:00: [place] [facility] (FREESTYLE bedtime. [facility] h AZUL 14 DAY READER) [facility] flash 2018- Yes [id number] 1{kit} 1 Kit Univ ers glucose 2-01 before ity of sensor 00:00: meals and [place] (FREESTYLE 00 at [facility] AZUL 14 bedtime. Branch DAY SENSOR) Kit Insulin 2018- Yes [id number] Use as Uni vers Syringes, 2- directed ity of Disposable, 00:00: [place] 1 mL Syrg 00 Medical Branch insulin NPH 2018- Yes [id number] 10U inject 10 Univers and regular 2-01 Units ity of human 70-30 00:00: under the [place] 100 unit/mL 00 skin every Me dical (70-30) morning Branch injection and evening. flash 2018- Yes [id number] 1U 1 Units Univ ers glucose 2-01 before ity of scanning 00:00: [place] [facility] (FREESTYLE bedtime. Bran h AZUL 14 DAY READER) Misc flash 2018-05 Yes [id number] 1{kit} 1 Kit Univ ers glucose 2-01 before ity of sensor 00:00: meals and [place] (FREESTYLE 00 at Medical AZUL 14 bedtime. SENSOR) Kit Insulin 2018-05 Yes [id number] Use as Uni vers Syringes, 2-01 directed ity of Disposable, 00:00: [place] 1 mL Syrg 00 Medical Branch methocarbam 2018-05 Yes [id number] 750mg Take 1 Univers ol 0-01 tablet by ity of (ROBAXIN-75 00:00: mouth 4 Tim as 0) 750 mg 00 (four) Medical tablet times Branch daily. methocarbam 2018-05 Yes [id number] 750mg Take 1 Univers ol 0-01 tablet by ity of (ROBAXIN-75 00:00: mouth 4 Tim as 0) 750 mg 00 (four) Medical tablet times Branch daily. methocarbam 2018-05 Yes [id number] 750mg Take 1 Univers ol 0-01 tablet by ity of (ROBAXIN-75 00:00: mouth 4 Tim as 0) 750 mg 00 (four) Medical tablet times Branch daily. methocarbam 2018-05 Yes [id number] 750mg Take 1 Univers ol 0-01 tablet by ity of (ROBAXIN-75 00:00: mouth 4 Tim as 0) 750 mg 00 (four) Medical tablet times Branch daily. methocarbam 2018-05 Yes [id number] 750mg Take 1 Univers ol 0-01 tablet by ity of (ROBAXIN-75 00:00: mouth 4 Tim as 0) 750 mg 00 (four) Medical tablet times Branch daily. Vitamin C Yes Ahmed not Memoria 4-23 Ahmed defined l 03:16: [place] 57 Vitamin C Yes Ahmed not Memoria 4-23 Ahmed defined l 03:16: [place] 57 benzonatate Yes 100mg Take 1 Uni vers 100 mg 7-23 capsule by ity of capsule 00:00: mouth 3 [place] 00 (three) Medical times Branch daily as needed for Cough. albuterol Yes 2.5mg Inhale 3 Uni vers 2.5 mg /3 7-23 mL every 4 ity of mL (0.083 00:00: (four) [place] %) 00 hours as Medical nebulizer needed for Bran ch solution Wheezing or Shortness of Breath. benzonatate 2018-0 Yes 100mg Take 1 Uni vers 100 mg 7-23 capsule by ity of capsule 00:00: mouth 3 [place] 00 (three) Medical times Branch daily as needed for Cough. albuterol 2018-0 Yes 2.5mg Inhale 3 Uni vers 2.5 mg /3 7-23 mL every 4 ity of mL (0.083 00:00: (four) [place] %) 00 hours as Medical nebulizer needed for Bran ch solution Wheezing or Shortness of Breath. benzonatate 2018-0 Yes 100mg Take 1 Uni vers 100 mg 7-23 capsule by ity of capsule 00:00: mouth 3 [place] 00 (three) Medical times Branch daily as needed for Cough. albuterol 2018-0 Yes 2.5mg Inhale 3 Uni vers 2.5 mg /3 7-23 mL every 4 ity of mL (0.083 00:00: (four) [place] %) 00 hours as Medical nebulizer needed for Bran ch solution Wheezing or Shortness of Breath. benzonatate 2018-0 Yes 100mg Take 1 Uni vers 100 mg 7-23 capsule by ity of capsule 00:00: mouth 3 [place] 00 (three) Medical times Branch daily as needed for Cough. albuterol 2018-0 Yes 2.5mg Inhale 3 Uni vers 2.5 mg /3 7-23 mL every 4 ity of mL (0.083 00:00: (four) [place] %) 00 hours as Medical nebulizer needed for Bran ch solution Wheezing or Shortness of Breath. benzonatate 2018-0 Yes 100mg Take 1 Uni vers 100 mg 7-23 capsule by ity of capsule 00:00: mouth 3 [place] 00 (three) Medical times Branch daily as needed for Cough. albuterol 2018-0 Yes 2.5mg Inhale 3 Uni vers 2.5 mg /3 7-23 mL every 4 ity of mL (0.083 00:00: (four) [place] %) 00 hours as Medical nebulizer needed for Bran ch solution Wheezing or Shortness of Breath. naproxen 2018-0 Yes 500mg Take 1 Univer s (NAPROSYN) 3-07 tablet by ity of 500 mg 00:00: mouth 2 [place] tablet 00 (two) Medical times Branch daily with meals. naproxen 2018-0 Yes 500mg Take 1 Univer s (NAPROSYN) 3-07 tablet by ity of 500 mg 00:00: mouth 2 [place] tablet 00 (two) Medical times Branch daily with meals. naproxen 2018-0 Yes 500mg Take 1 Univer s (NAPROSYN) 3-07 tablet by ity of 500 mg 00:00: mouth 2 [place] tablet 00 (two) Medical times Branch daily with meals. naproxen 2018-0 Yes 500mg Take 1 Univer s (NAPROSYN) 3-07 tablet by ity of 500 mg 00:00: mouth 2 [place] tablet 00 (two) Medical times Branch daily with meals. naproxen 2018-0 Yes 500mg Take 1 Univer s (NAPROSYN) 3-07 tablet by ity of 500 mg 00:00: mouth 2 [place] tablet 00 (two) Medical times Branch daily with meals. nitroglycer 2017-[address] 1 Uni vers in 0.4 mg 3-16 tablet ity of sublingual 00:00: under the [place] tablet 00 tongue Medical every 5 Branch (five) minutes as needed for Chest pain. nitroglycer 2017-[address] 1 Uni vers in 0.4 mg 3-16 tablet ity of sublingual 00:00: [place] the [place] tablet 00 tongue Medical every 5 Branch (five) minutes as needed for Chest pain. nitroglycer 2017-[address] 1 Uni vers in 0.4 mg 3-16 tablet ity of sublingual 00:00: under the [place] tablet 00 tongue Medical every 5 Branch (five) minutes as needed for Chest pain. nitroglycer 2017-[address] 1 Uni vers in 0.4 mg 3-16 tablet ity of sublingual 00:00: under the [place] tablet 00 tongue Medical every 5 Branch (five) minutes as needed for Chest pain. nitroglycer 2017-[address] 1 Uni vers in 0.4 mg 3-16 tablet ity of sublingual 00:00: under the [place] tablet 00 tongue Medical every 5 Branch (five) minutes as needed for Chest pain. Vital Signs Vital Name Observation Time Observation Value Comments Source Body height 2022-04-20 20:34:00 180.3 cm [facility] Branch Body weight 2022-04-20 20:34:00 104.327 kg [facility] [place] [facility] BMI 2022-04-20 20:34:00 32.08 kg/m2 [facility] [place] [facility] Systolic blood 2022-04-17 00:00:00 187 mm[Hg] Univer sity of pressure [place] [facility] Diastolic blood 2022-04-17 00:00:00 112 mm[Hg] Unive rsity of pressure [place] [facility] Heart rate 2022-04-17 00:00:00 81 /min [facility] [place] [facility] Body temperature 2022-04-17 00:00:00 37.89 Rika [facility] [place] [facility] Respiratory rate 2022-04-17 00:00:00 18 /min [facility] [place] [facility] Body height 2022-04-17 00:00:00 180.3 cm [facility] [place] [facility] Body weight 2022-04-17 00:00:00 104.327 kg [facility] [place] [facility] BMI 2022-04-17 00:00:00 32.08 kg/m2 [facility] [place] [facility] Oxygen saturation in 2022-04-17 00:00:00 99 /min University of Arterial blood by [place] [employer] marilia Pulse oximetry Branch Systolic blood 2021-07-03 17:14:00 119 mm[Hg] Univer sity of pressure [place] [facility] Diastolic blood 2021-07-03 17:14:00 71 mm[Hg] Unive rsity of pressure [place] [facility] Heart rate 2021-07-03 17:14:00 66 /min [facility] [place] [facility] Body temperature 2021-07-03 17:14:00 37.11 Rika [facility] [place] [facility] Body height 2021-07-03 17:14:00 180.3 cm [facility] [place] [facility] Body weight 2021-07-03 17:14:00 115.259 kg [facility] [place] [facility] BMI 2021-07-03 17:14:00 35.44 kg/m2 [facility] [place] [facility] Oxygen saturation in 2021-07-03 17:14:00 97 /min University of Arterial blood by [place] Medi marilia Pulse oximetry Branch Weight 2020-06-13 19:45:00 [facility] Height 2020-06-13 19:45:00 [facility] Heart Rate 2020-06-13 19:45:00 [facility] [place] Diastolic (mm Hg) 2020-06-13 19:45:00 Mem orial [place] Systolic (mm Hg) 2020-06-13 19:45:00 Samuel rial [place] Weight 2020-05-09 16:30:00 [facility] [place] Height 2020-05-09 16:30:00 [facility] [place] Heart Rate 2020-05-09 16:30:00 [facility] [place] Diastolic (mm Hg) 2020-05-09 16:30:00 Mem orial [place] Systolic (mm Hg) 2020-05-09 16:30:00 Samuel rial Uir Weight 2019-03-13 15:30:00 [facility] [place] Heart Rate 2019-03-13 15:30:00 [facility] [place] Diastolic (mm Hg) 2019-03-13 15:30:00 Mem orial [place] Systolic (mm Hg) 2019-03-13 15:30:00 Samuel rial [place] Weight 2018-04-05 16:30:00 [facility] Heart Rate 2018-04-05 16:30:00 [facility] [place] Diastolic (mm Hg) 2018-04-05 16:30:00 Mem orial [place] Systolic (mm Hg) 2018-04-05 16:30:00 Samuel rial [place] Weight 2018-03-09 18:15:00 [facility] [place] Heart Rate 2018-03-09 18:15:00 [facility] [place] Diastolic (mm Hg) 2018-03-09 18:15:00 Mem orial [place] Systolic (mm Hg) 2018-03-09 18:15:00 Samuel rial [place] Weight 2017-05-05 16:45:00 [facility] [place] Heart Rate 2017-05-05 16:45:00 [facility] [place] Diastolic (mm Hg) 2017-05-05 16:45:00 Mem orial [place] Systolic (mm Hg) 2017-05-05 16:45:00 Samuel rial [place] Weight 2017-04-15 17:30:00 [facility] [place] Heart Rate 2017-04-15 17:30:00 [facility] [place] Diastolic (mm Hg) 2017-04-15 17:30:00 Mem orial [place] Systolic (mm Hg) 2017-04-15 17:30:00 Samuel rial Uri Procedures Procedure Date / Time Performed Performing Clinician [facility] [place] RESUPERF WND BODY 2022-04-17 01:57:06 Lu Fields [facility] 2.5CM OR LESS Medical Branch XR FOREARM 2 VW LEFT 2022-04-17 01:19:49 Lu Fields [facility] XR HAND 3+ VW LEFT 2022-04-17 01:19:49 Lu Fields [facility] NOTICE OF PRIVACY 2022-04-16 23:57:06 Doctor Unassigned, No Univ [facility] PRACTICES Name Medical Branch CONSENT/REFUSAL FOR 2022-04-16 23:55:45 Doctor Unassigned, No [facility] DIAGNOSIS AND Name [facility] TREATMENT REFERRAL- 2022-04-16 06:01:00 Doctor Unassigned, No [facility] REQUEST/RESPONSE Name [facility] Encounters Start End Encounter Admission Attending Care Care Encounter Source Date/Time Date/Time Type Type Clinicians Facility Department ID 2022-06-25 Outpatient [id number] Memoria 12:05:33 [id number] Uri [id number] 2022-04-16 Outpatient [id number] Memoria 19:09:18 [id number] Uri [id number] 2022-06-11 2022-06-11 Emergency E SUNITA, MHBL MHBL [id number] MHBL 17:54:00 23:47:00 AICHA 2022-04-30 2022-04-30 Outpatient Gavino IBRAHIM [facility] [id number] Univers 09:30:00 09:30:00 ROSENDA berger [facility] 2022-04-20 2022-04-20 Outpatient Gavino IBRAHIM [facility] [id number] Univers 14:45:00 15:46:36 ROSENDA berger [facility] 2022-04-20 2022-04-20 [facility] [id number] Univers 14:45:00 15:46:36 Visit Rosenda FUNG [id number] it y of [place] [id number] Tim as BLAKE?BLEA [id number] Oh mario [address] MEDICAL OFFICE [facility] 2022-04-16 2022-04-16 Emergency X [facility] ERT [id number] Univers 18:18:00 21:30:00 LU zohaib [facility] 2022-04-16 2022-04-16 Emergency [facility] [id number] Univers 18:18:00 21:30:00 Lu URBINA [id number] i ty of [place] [id number] [facility] [id number] [facility] [address] [place] 2022-04-16 2022-04-16 Orders Doctor TEENA [id number] Univers 00:00:00 00:00:00 Only Unassigned, PRAVEEN [id number] ity of [place] [facility] [id number] Tim as [id number] [facility] [address] [place] 2021-07-07 2021-07-07 Outpatient Gavino YANG [facility] [id number] Univers 09:30:00 09:30:00 LEANNA berger [facility] 2021-07-03 2021-07-03 Office Lg [facility] [id number] Univers 11:15:00 11:45:00 Visit Leanna Cassidy HEALTH [id number] ity of CANC[place] [id number] [facility] [id number] [facility] [address] [place] 2021-07-03 2021-07-03 Outpatient Gavino YANG [facility] [id number] Univers 11:15:00 11:15:00 LEANNA berger [facility] 2021-07-03 2021-07-03 Orders Doctor TEENA [id number] Univers 00:00:00 00:00:00 Only Unassigned, PRAVEEN [id number] ity of [facility] [id number] [facility] [id number] [facility] 009 Branch 2021-06-26 2021-06-26 Outpatient [facility] [id number] eClinic 09:15:00 09:15:00 Uri Becerra [facility] 2021-06-21 2021-06-21 Emergency [facility] [id number] Univers 16:54:00 21:57:00 Shinmaddison URBINA [id number] i ty [facility] 4.2.7.2.686 [facility] [id number] [facility] 084 Branch 2021-06-21 2021-06-21 Emergency X [facility] ERT [id number] Univers 16:54:00 21:57:00 SHINTA itzohaib [facility] 2020-09-02 2020-09-02 Outpatient Ahmed Ahmed [id number] eClinic 12:52:00 12:52:00 [facility]olog [facility] [place] 2020-08-26 2020-08-26 Outpatient Ahmed Ahmed [id number] eClinic 12:21:00 12:21:00 Cardiolog Cardiology [facility] [place] 2020-08-21 2020-08-21 Outpatient Ahmed Ahmed [id number] eClinic 09:27:00 09:27:00 Cardiolog Cardiology [facility] [place] 2020-08-21 2020-08-21 Outpatient Ahmed Ahmed [id number] eClinic 08:52:00 08:52:00 Cardiolog Cardiology [facility] y [place] 2020-06-13 2020-06-13 Outpatient Ahmed Ahmed [id number] eClinic 14:45:00 14:45:00 Cardiolog Cardiology a [facility] y [place] 2020-05-09 2020-05-09 Outpatient Ahmed Ahmed [id number] eClinic 11:30:00 11:30:00 Cardiolog Cardiology [facility] [place] 2020-01-22 2020-01-22 Outpatient Gavino IBRAHIM [facility] [id number] Univers 15:30:00 15:30:00 ROSENDA berger [facility] 2020-01-22 2020-01-22 Office Viktoria [facility] [id number] 15:08:06 15:28:47 Visit Rosenda [facility] [id number] Surgical [id number] [facility] [id number] es [address] [place] 2020-01-18 2020-01-18 [facility] [id number] Univers 15:15:00 15:15:00 ROSENDA berger [facility] 2019-03-13 2019-03-13 [facility] [id number] 10:30:00 10:30:00 Cardiolog Cardiology [facility] y [facility] 2018-06-06 2018-06-06 Outpatient med Ahmed [id number] eClinic 10:02:00 10:02:00 Cardiolog Cardiology a [facility] [place] 2018-04-05 2018-04-05 Outpatient med Ahmed [id number] eClinic 11:30:00 11:30:00 Cardiolog Cardiology a [facility]Works y [facility] [place] 2018-03-11 2018-03-11 Outpatient med Ahmed [id number] eClinic 09:34:00 09:34:00 Cardiolog Cardiology a [facility]Works y [facility] [place] 2018-03-11 2018-03-11 Outpatient med Ahmed [id number] eClinic 08:44:00 08:44:00 Cardiolog Cardiology a [facility]Works y [place] 2018-03-09 2018-03-09 Outpatient med Ahmed [id number] eClinic 13:15:00 13:15:00 Cardiolog Cardiology a [facility]Works y [facility] [place] 2017-05-05 2017-05-05 Outpatient med Ahmed [id number] eClinic 10:45:00 10:45:00 Cardiolog Cardiology a lWorks y Pa Pa 2017-04-15 2017-04-15 Outpatient med Ahmed [id number] eClinic 11:30:00 11:30:00 Cardiolog Cardiology a [facility]Works y Pa Pa Results This patient has no known results.
[2022-06-25] MEDS ORDERED: ONDANSETRON 4 MG/2 ML VIAL ONE (12:36)
[2022-06-25] MEDS ORDERED: FENTANYL CITR 100 MCG/2 ML ONE ×2 (12:36→14:17)
[2022-06-25] MEDS ORDERED: KETOROLAC 30 MG/ML INJ ONE (12:36)
--- NOTE | 2022-06-25 13:38 | RAD REPORT ---
EXAM DESCRIPTION: RAD - Lumbar Spine 3 Views - 06/25/2022 1:30 pm CLINICAL HISTORY: fall, back pain COMPARISON: No comparisons FINDINGS: No acute fracture. Slight levoconvex curvature which is only partially imaged. Minimal spu rring at L4-5. IMPRESSION: No acute osseous abnormality involving the lumbar spine.
[2022-06-25] MEDS ORDERED: LIDOCAINE 4% PATCH ONE (14:17)
[2022-06-25] MEDS ORDERED: DIAZEPAM 10 MG/2 ML INJ SYRINGE ONE (16:30)
--- NOTE | 2022-06-25 18:28 | RAD REPORT ---
EXAM DESCRIPTION: MRI - Lumbar Spine Gimra Tellez - 06/25/2022 6:12 pm CLINICAL HISTORY: eval for lower back pain radiating down right leg states he tripped and fell backwards aggravating lower back no hx of lumbar surgery COMPARISON: Same date lumbar spine radiograph TECHNIQUE: Sagittal T1-weighted, T2-weighted and T2-STIR weighted sequences were obtained. Axial T1 -weighted and heavily T2-weighted sequenceswere obtained through the lumbar disc levels. FINDINGS: Lumbar bodies are normal in height and alignment. No suspicious marrow signal. No paraspin al masses. Conus is normal with no clumping or thickening of the cauda equina. T12-L1 level: No significant findings. L1-2 level: No significant findings. L2-3 level: No significant findings. L3-4 level: No significant findings. L4-5 level: Broad-based disc bulge with facet effusions and ligamentum flavum and facet hypertrophy r esults in mild bilateral neural foraminal narrowing. No significant central spinal stenosis. L5-S1 level: No significant findings. IMPRESSION: Mild degenerate disc disease at L4-5 that results in mild bilateral neural foraminal melody rowing. No central spinal stenosis appreciated.
--- NOTE | 2022-06-25 18:43 | ER ---
Nurse's Notes [facility] Name: Manfred Canales Jr Age: 52 yrs Sex: Male : 1970 Arrival Date: 06/25/2022 Time: 12:06 Bed Treatment Private MD: Charbel Polanco Diagnosis: Low back pain Presentation: 06/25 12:16 Chief complaint: Patient states: lower back pain for a while, I tripped over a rug and iw fell today about an hour ago, made back pain worse, has had some procedures done on back. Coronavirus screen: At this time, the client does not indicate any symptoms associated with coronavirus-19. Ebola Screen: Patient negative for fever greater than or equal to 101.5 degrees Fahrenheit, and additional compatible Ebola Virus Disease symptoms Patient denies exposure to infectious person. Patient denies travel to an Ebola-affected area in the 21 days before illness onset. No symptoms or risks identified at this time. Initial Sepsis Screen: Does the patient meet any 2 criteria? No. Patient's initial sepsis screen is negative. Does the patient have a suspected source of infection? No. Patient's initial sepsis screen is negative. Risk Assessment: Do you want to hurt yourself or someone else? Patient reports no desire to harm self or others. 12:16 Method Of Arrival: Ambulatory iw 12:16 Acuity: ISABEL 3 iw 12:21 Onset of symptoms. iw Historical: - Allergies: 12:17 No Known Allergies; iw - Home Meds: 12:17 allopurinol 100 mg Oral tab 1 tab once daily [Active]; amlodipine 10 mg tab 1 tab once iw daily [Active]; aspirin 325 mg oral tab once daily [Active]; atorvastatin 80 mg oral tab 1 tab once daily [Active]; clopidogrel 75 mg oral tab 1 tab once daily [Active]; Tresiba FlexTouch U-100 100 unit/mL (3 mL) subcutaneous inpn [Active]; isosorbide mononitrate 30 mg Oral Tb24 1 tab once daily [Active]; lisinopril 20 mg Oral tab 1 tab once daily [Active]; Ozempic 1 mg/dose (2 mg/1.5 mL) subcutaneous pnij [Active]; - PMHx: 12:17 Diabetes - NIDDM; High Cholesterol; Hypertension; Myocardial infarction; Gout; iw - PSHx: 12:17 Coronary artery bypass graft; Stented artery; carpal tunnel; disc fusion; iw Screenin:22 [facility] ED Fall Risk Assessment (Adult) History of falling in the last 3 months, mb9 including since admission Yes- single mechanical fall (1 pt) Confusion or Disorientation No (0 pts) Intoxicated or Sedated No (0 pts) Impaired Gait Yes (1 pt) Mobility Assist Device Used Yes (1 pt) Altered Elimination No (0 pt) Score/Fall Risk Level 3 or more points = High Risk Oriented to surroundings, Maintained a safe environment, Educated pt \\T\\ family on fall prevention, incl call for assistance when getting out of bed. Abuse screen: Denies threats or abuse. Nutritional screening: No deficits noted. Tuberculosis screening: No symptoms or risk factors identified. Assessment: 13:00 General: Appears uncomfortable, Behavior is. Pain: Complains of pain in back Pain mb9 currently is 10 out of 10 on a pain scale. Quality of pain is described as shooting, stabbing, Is continuous, Aggravated by increased activity, repositioning. Neuro: Bergeron Agitation-Sedation Scale (RASS): 0 - Alert and Calm Level of Consciousness is awake, alert, obeys commands, Oriented to person, place, time, situation, Appropriate for age. Cardiovascular: Capillary refill < 3 seconds is brisk Patient's skin is warm and dry. Respiratory: Airway is patent Respiratory effort is even, unlabored, Respiratory pattern is regular, symmetrical. GI: No signs and/or symptoms were reported involving the gastrointestinal system. Derm: Skin is pink, warm \\T\\ dry. Musculoskeletal: Range of motion: limited in back. 14:03 Reassessment: [place] SORIA, notified about no change in pts pain Patient states symptoms mb9 have not improved. 15:09 Reassessment: No changes from previously documented assessment. Patient and/or family mb9 updated on plan of care and expected duration. Pain level reassessed. Patient is alert, oriented x 3, equal unlabored respirations, skin warm/dry/pink. 15:18 Reassessment: Pt sleeping when arriving to pt room. pt states "the pain medicine only mb9 helped a little bit. My pain is still a 9/10.". 16:14 Reassessment: Called MRI and spoke with Tonya about status. Stated "we have mb9 inpatient pts at this time so I don't know when we will be there. It should be soon". 17:43 Reassessment: pt taken to MRI via wheelchair. mb9 18:49 Reassessment: No changes from previously documented assessment. Patient and/or family mb9 updated on plan of care and expected duration. Pain level reassessed. Patient is alert, oriented x 3, equal unlabored respirations, skin warm/dry/pink. Patient states symptoms have not improved. Vital Signs: 12:21 BP 149 / 93; Pulse 85; Resp 18; Temp 97.7; Pulse Ox 100% on R/A; Weight 104.33 kg; iw Height 5 ft. 11 in. (180.34 cm); Pain 9/10; 14:03 BP 127 / 84; Pulse 88; Resp 20; Pulse Ox 100% ; Pain 10/10; mb9 15:17 BP 110 / 76; Pulse 52; Resp 16; Pulse Ox 99% on R/A; Pain 9/10; mb9 16:14 BP 114 / 79; Pulse 50; Resp 15; Pulse Ox 98% on R/A; mb9 18:37 BP 112 / 84; Pulse 55; Resp 18; Pulse Ox 98% on R/A; mb9 12:21 Body Mass Index 32.08 (104.33 kg, 180.34 cm) ED Course: 12:06 Patient arrived in ED. am2 12:07 Charbel Polanco is Private Physician. am2 12:09 Arturo Goff PA is PHCP. [facility] 12:09 Allan Ward DO is Attending Physician. [facility] 12:17 Triage completed. iw 12:21 Arm band placed on. iw 12:22 Placed in gown. Bed in low position. Call light in reach. Side rails up X 1. Client mb9 placed on continuous cardiac and pulse oximetry monitoring. NIBP monitoring applied. 12:28 Renetta Hendrix, ANASTASIIA is Primary Nurse. mb9 12:50 Missed attempt(s): 22 gauge in left hand. Bleeding controlled, band aid applied, mb9 catheter tip intact. 13:05 Missed attempt(s): 22 gauge in right forearm. Bleeding controlled, band aid applied, mb9 catheter tip intact. 13:13 Inserted saline lock: 22 gauge in right antecubital area, using aseptic technique. iw 14:04 No provider procedures requiring assistance completed. mb9 18:43 IV discontinued, intact, bleeding controlled, No redness/swelling at site. Pressure mb9 dressing applied. Administered Medications: 13:12 Drug: fentaNYL (PF) 50 mcg Route: IVP; Site: right antecubital; iw 14:21 Follow up: Response: No adverse reaction mb9 13:13 Drug: Zofran (Ondansetron) 4 mg Route: IVP; Site: right antecubital; iw 14:21 Follow up: Response: No adverse reaction mb9 13:13 Drug: Ketorolac 30 mg Route: IVP; Site: right antecubital; iw 14:21 Follow up: Response: No adverse reaction mb9 14:20 Drug: fentaNYL (PF) 50 mcg Route: IVP; Site: right antecubital; mb9 16:09 Follow up: Response: No adverse reaction mb9 14:20 Drug: lidocaine patch 1 application Route: Transdermal; Site: affected area; mb9 16:28 Drug: Valium (diazepam) 5 mg Route: IVP; Site: right antecubital; mb9 18:38 Follow up: Response: No adverse reaction mb9 Medication: 14:04 VIS not applicable for this client. mb9 Outcome: 18:42 Discharge ordered by . dominique 18:43 Discharged to home via wheelchair. mb9 18:43 Condition: stable 18:43 Discharge instructions given to patient, Instructed on discharge instructions, follow up and referral plans. Demonstrated understanding of instructions, follow-up care, medications, Prescriptions given X 2. 18:49 Patient left the ED. mb9 Signatures: Arturo Goff PA PA jmm Williams, Irene, RN RN Saundra Wise Mary Beth RN RN mb9 Corrections: (The following items were deleted from the chart) 12:22 12:21 BP 149 / 93; Pulse 85bpm; Resp 18bpm; Pulse Ox 100% RA; Temp 97.7F; iw iw 16:15 15:30 Reassessment: pt taken to MRI via wheelchair mb9 mb9
--- NOTE | 2022-06-25 18:43 | EDPHYS ---
Physician Documentation [facility] Name: Manfred Canales Jr Age: 52 yrs Sex: Male : 1970 Arrival Date: 06/25/2022 Time: 12:06 Bed Treatment Private MD: Charbel Polanco ED Physician Allan Ward HPI: 06/25 12:18 This 52 yrs old Black Male presents to ER via Ambulatory with complaints of Back Pain. jmm 12:18 The patient presents with pain that is acute. The symptoms are located in the low back. jmm Onset: The symptoms/episode began/occurred acutely, today. Associated signs and symptoms: Pertinent negatives: incontinence, vomiting. The patient has experienced similar episodes in the past. This is a 52 year old male with a hsitory of dm, hlp, htn, mi that presents to the ED with complaints of lower back pain after a fall which occurred earlier today. Patient states he fell backwards. Denies hitting his head. Denies urinary or bowel issues. . Historical: - Allergies: 12:17 No Known Allergies; iw - Home Meds: 12:17 allopurinol 100 mg Oral tab 1 tab once daily [Active]; amlodipine 10 mg tab 1 tab once iw daily [Active]; aspirin 325 mg oral tab once daily [Active]; atorvastatin 80 mg oral tab 1 tab once daily [Active]; clopidogrel 75 mg oral tab 1 tab once daily [Active]; Tresiba FlexTouch U-100 100 unit/mL (3 mL) subcutaneous inpn [Active]; isosorbide mononitrate 30 mg Oral Tb24 1 tab once daily [Active]; lisinopril 20 mg Oral tab 1 tab once daily [Active]; Ozempic 1 mg/dose (2 mg/1.5 mL) subcutaneous pnij [Active]; - PMHx: 12:17 Diabetes - NIDDM; High Cholesterol; Hypertension; Myocardial infarction; Gout; iw - PSHx: 12:17 Coronary artery bypass graft; Stented artery; carpal tunnel; disc fusion; iw ROS: 12:18 Constitutional: Negative for fever, chills, and weight loss, Cardiovascular: Negative jmm for chest pain, palpitations, and edema, Respiratory: Negative for shortness of breath, cough, wheezing, and pleuritic chest pain. 12:18 Back: Positive for pain at rest, pain with movement. 12:18 All other systems are negative. Exam: 12:18 Constitutional: This is a well developed, well nourished patient who is awake, alert, jmm and in no acute distress. Head/Face: atraumatic. Eyes: EOMI, no conjunctival erythema appreciated ENT: Moist Mucus Membranes Neck: Trachea midline, Supple Chest/axilla: Normal chest wall appearance and motion. Cardiovascular: Regular rate and rhythm. No edema appreciated Respiratory: Normal respirations, no respiratory distress appreciated Abdomen/GI: Non distended 12:18 Back: pain, that is moderate, vertebral tenderness, is appreciated at L1, L2, L3 and L4. 12:18 Neuro: Orientation: is normal, Mentation: is normal, Memory: is normal, hallucis longus intact bilaterally. 12:18 Psych: Behavior/mood is pleasant, cooperative. Vital Signs: 12:21 BP 149 / 93; Pulse 85; Resp 18; Temp 97.7; Pulse Ox 100% on R/A; Weight 104.33 kg; iw Height 5 ft. 11 in. (180.34 cm); Pain 9/10; 14:03 BP 127 / 84; Pulse 88; Resp 20; Pulse Ox 100% ; Pain 10/10; mb9 15:17 BP 110 / 76; Pulse 52; Resp 16; Pulse Ox 99% on R/A; Pain 9/10; mb9 16:14 BP 114 / 79; Pulse 50; Resp 15; Pulse Ox 98% on R/A; mb9 18:37 BP 112 / 84; Pulse 55; Resp 18; Pulse Ox 98% on R/A; mb9 12:21 Body Mass Index 32.08 (104.33 kg, 180.34 cm) iw MDM: 12:18 Patient medically screened. [facility] 18:20 Differential diagnosis: vertebral fracture. Data reviewed: vital signs, nurses notes. I dominique considered the following discharge prescriptions or medication management in the emergency department Medications were administered in the Emergency Department. See JUL. 18:39 Independent interpretation of the following test(s) in the Emergency Department X-Ray: dominique My interpretation is No fracture appreciated. Counseling: I had a detailed discussion with the patient and/or guardian regarding: the historical points, exam findings, and any diagnostic results supporting the discharge/admit diagnosis, radiology results, the need for outpatient follow up, to return to the emergency department if symptoms worsen or persist or if there are any questions or concerns that arise at home. Response to treatment: the patient's symptoms have mildly improved after treatment. 06/25 12:24 Order name: Lumbar Spine (3 Views) XRAY [facility] 06/25 13:38 Order name: RAD; Complete Time: 14:00 EDMS 06/25 14:08 Order name: MRI Lumbar Spine wo Con [facility] 06/25 18:29 Order name: MRI; Complete Time: 18:31 EDMS 06/25 12:24 Order name: Saline Lock; Complete Time: 13:13 [facility] Administered Medications: 13:12 Drug: fentaNYL (PF) 50 mcg Route: IVP; Site: right antecubital; iw 14:21 Follow up: Response: No adverse reaction mb9 13:13 Drug: Zofran (Ondansetron) 4 mg Route: IVP; Site: right antecubital; iw 14:21 Follow up: Response: No adverse reaction mb9 13:13 Drug: Ketorolac 30 mg Route: IVP; Site: right antecubital; iw 14:21 Follow up: Response: No adverse reaction mb9 14:20 Drug: fentaNYL (PF) 50 mcg Route: IVP; Site: right antecubital; mb9 16:09 Follow up: Response: No adverse reaction mb9 14:20 Drug: lidocaine patch 1 application Route: Transdermal; Site: affected area; mb9 16:28 Drug: Valium (diazepam) 5 mg Route: IVP; Site: right antecubital; mb9 18:38 Follow up: Response: No adverse reaction mb9 Disposition: 18:33 Co-signature as Attending Physician, Allan BARBOSA was immediately available on-site ms3 in the Emergency Department for consultation in the care of the patient. Disposition Summary: 06/25/22 18:42 Discharge Ordered Location: Home [facility] Condition: Stable [facility] Diagnosis - Low back pain [facility] Followup: [facility] - With: Private Physician - When: 2 - 3 days - Reason: Recheck today's complaints, Continuance of care, Re-evaluation by your physician Discharge Instructions: - Discharge Summary Sheet [facility] - Acute Back Pain, Adult [facility] Forms: - Medication Reconciliation Form [facility] - Thank You Letter [facility] - Antibiotic Education [facility] - Prescription Opioid Use [facility] Prescriptions: - Ultracet 37.5-325 mg Oral Tablet - take 1 tablet by ORAL route every 6 hours - for up to 5 days; do not exceed 8 jmm tablets per day.; 20 tablet; Refills: 0, Product Selection Permitted - Zanaflex 4 mg Oral Tablet - take 1 tablet by ORAL route every 8 hours As needed; 20 tablet; Refills: 0, jmm Product Selection Permitted Signatures: Dispatcher [employer] Arturo Aragon PA PA jmm Williams, Irene, RN RN Allan Cummings DO DO ms3 Renetta Hendrix RN RN mb9
[2022-06-25 19:10] VITALS: O2SAT 98
[2022-06-25 19:11] VITALS: BP 112/84
[2022-06-25 19:33] VITALS: TEMP 97.9
== END 2022-06-25 18:49 | disposition home or self-care (01) ==
LOC: ER 12:03
DX: M54.50 Low back pain, unspecified (principal); I10 Essential (primary) hypertension; E11.9 Type 2 diabetes mellitus without complications; Z79.82 Long term (current) use of aspirin; Z95.1 Presence of aortocoronary bypass graft
CPT/HCPCS: 72100; 72148; 96375; 96374; 99283; J3360; J3010 ×2; J2001; J2405

== ENCOUNTER 2023-01-03 01:15 | Emergency (ER) | payer OTHER ==
--- OUTSIDE RECORDS SUMMARY | 2023-01-03 01:22 | XMS REPORT | Continuity of Care Document ---
:1970 Author Organization [facility] t Address [address] [place] [address] [id number] Care Team Providers Name Role Phone Charbel Dean Primary Care Physician ANNIA SALAZAR Attending Clinician Unavailable Annia Salazar DO Attending Clinician Doctor Unassigned, [place] Attending Clinician Unavailable EFREN DYER Attending Clinician Unavailable Efren Branham Attending Clinician AICHA DORSEY Attending Clinician Unavailable ROSENDA IBRAHIM Attending Clinician Unavailable Rosenda Ibrahim MD Attending Clinician LU FIELDS Attending Clinician Unavailable Lu Hobson Attending Clinician LEANNA YANG Attending Clinician Unavailable Leanna Carbajal Attending Clinician Priscila Benítez Attending Clinician PRISCILA BRISENO Attending Clinician Unavailable LU FIELDS Admitting Clinician Unavailable PRISCILA BRISENO Admitting Clinician Unavailable Payers Payer Name Policy Type Policy Number Effective Date Expiration Date Saira [facility] [id number] 2022 MEDICARE GOLD PPO 00:00:00 CSNP MEDICAID [facility] [id number] 2022 00:00:00 Problems Condition Condition Condition Status Onset Resolution Last Treating Co mments Source Name Details Category Date Date Treatment Clinician Date Erectile Erectile Disease Active Unive rs dysfunctio dysfunctio 3-03 it y of n, n, 00:00: [place] unspecifie unspecifie 00 Me dical d erectile d erectile Br anch dysfunctio dysfunctio n type n type Prostate Prostate Disease Active Unive rs cancer cancer 3-03 ity of screening [place] [facility] [place] Other Other Disease Active Univers specified specified 3-03 ity of diabetes diabetes 00:00: [place] mellitus mellitus 00 Medica l with with Branch hyperglyce hyperglyce carmen, carmen, unspecifie unspecifie d whether d whether senior living senior living insulin insulin use use Benign Benign Disease Active Univers prostatic prostatic 3-03 ity of hyperplasi hyperplasi [place] without a without 00 Medi marilia lower lower Branch urinary urinary tract tract symptoms symptoms Cellulitis Cellulitis Disease Active 2018-05 U nivers , gluteal, , gluteal, 1-28 it y of left left 00:00: [place] 00 Medical Branch Obesity Obesity Disease Active 2015-05 Univers (BMI (BMI 1-23 ity of 30-39.9) 30-39.9) 00:00: [place] [facility] Chest pain Chest pain Disease Active U nivers 5-23 ity of 00:00: [place] [facility] Atheroscle Atheroscl Problem Active 2021-06-27 Memoria r-limb&cla er-limb&cl 03:45:02 l udic audic [place] Active Problem 06/27/2021 Ness Arzola Hx of CABG Hx of Diagnosis Active 2020-12-09 Memoria CABG 02:46:01 l Active [place] Diagnosis 12/09/2020 Ness Arzola Pre-operat Pre-opera Diagnosis Active 2020-12-09 Memoria harriett tive 02:46:[address] 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 [place] 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 Active Diagnosis 12/09/2020 Ness Arzola Other Other Diagnosis Active 2020-12-09 Mem oria symptoms symptoms 02:46:01 l involving involving Herm aziza cardiovasc cardiovasc [facility] Active Diagnosis 12/09/2020 Ness Arzola 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-06-27 Samuel mike 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, II, uncontroll uncontroll ed ed Active Problem 06/27/2021 Ness Arzola Benign Benign Problem Active 2021-06-27 Mem oria hypertensi hypertensi 03:45:02 l ve heart ve heart [place] n disease disease without without congestive congestive heart heart failure failure Active Problem 06/27/2021 Ness Arzola Reflux Reflux Problem Active 2021-06-27 Samuel mike esophagiti esophagiti 03:45:02 l s s Active [place] Problem 06/27/2021 Ness Arzola Precordial Precordia Diagnosis Active 2021-04-09 Memoria pain l pain 03:46:52 l Active [place] Diagnosis 04/09/2021 Ness Arzola 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 Memor ia hyperchole hyperchole 03:45:02 l sterolemia sterolemia [place] Active Problem 06/27/2021 Ahmed Ahmed Allergies, Adverse Reactions, Alerts Allergy Allergy Status Severity Reaction(s) Onset Inactive Treating Comm ents Source Name Type Date Date Clinician Juan Antonio Romano Active Info Not Samuel mike Available 2-11 l 00:00: [place] 00 NO KNOWN Drug Active Univers ALLERGIE Class ity of S [facility] Social History Social Habit Start Date Stop Date Quantity Comments Source Gender identity Universit y of [facility] Sexual orientation Univer [facility] Alcohol intake 2022-12-30 2022-12-30 .14 /d University 00:00:00 00:00:00 [facility] Exposure to 2022-04-10 2022-04-20 Not sure [facility] SARS-CoV-2 (event) 00:00:00 15:45:00 [facility] Tobacco use and 2022-04-20 2022-04-20 Smokeless Universit y of exposure 00:00:00 00:00:00 tobacco non-user [facility] History of Social 2022-04-20 2022-04-20 Univers ity of function 00:00:00 00:00:00 [facility] Sex [birth year] Universit y of 00:00:00 00:00:00 [facility] Smoking Status Start Date Stop Date Source Never smoked tobacco [facility] Medications Ordered Filled Start Stop Current Ordering Indication Dosage Frequency Signature Comments Components Source Medication Medication Date Date Medication? Clinician (SIG) Name Name gabapentin 2022- No 300mg 300 mg, Un savi (NEURONTIN) 12-31 Oral, ity of capsule 300 03:30: 03:27 [place]CE[place] 1 [place] :[place] dose, On [facility] 12/30/22 at 2230, JOSÉ MIGUEL clopidogreL 2022- No clopidogre Univers 75 mg 12-30 l 75 mg ity of tablet 22:13: 00:00 tablet [place] 58 :00 [facility] cyclobenzap 2022- No cyclobenza Univers rine 5 mg 12-30 holden 5 mg ity of tablet 22:13: 00:00 tablet [place] 58 :00 Medical Branch gabapentin 2022-0 2022- No Horizant Un savi enacarbil 12-30 08-30 ER 600 mg ity of (HORIZANT) 22:13: 00:00 tablet,ext [place] 600 mg TbSR 58 :00 ended Medical release Branch gabapentin 2022-0 2022- Yes [id number] 100mg Take 1 Univers 100 mg 12-30-30 capsule by ity of capsule 00:00: 04:59 mouth in [place] 00 :00 the Medical morning Branch and 1 capsule at noon and 1 capsule in the evening. Do all this for 30 days. naproxen 2022-0 Yes [id number] 500mg Take 1 U nivers (NAPROSYN) 7-19 tablet by ity of 500 mg 00:00: mouth in [place] tablet 00 the Medical morning Branch and 1 tablet in the evening. Take with meals. methocarbam 2022-0 Yes [id number] 1000mg Take 2 Univers oL 500 mg 7-19 tablets by ity of tablet 00:00: mouth 3 [place] 00 (three) Medical times Branch daily as needed for Pain (scale 4-6). acetaminoph 2022-0 Yes [id number] 1{tbl} Take 1 Un savi en-codeine 7-19 tablet by ity of 300-30 mg 00:00: mouth [place] tablet 00 every 4 Medical (four) Branch hours as needed for Pain (scale 4-6). Indication s: acute pain naproxen 2022-0 Yes [id number] 500mg Take 1 U nivers (NAPROSYN) 7-19 tablet by ity of 500 mg 00:00: mouth in [place] tablet 00 the Medical morning Branch and 1 tablet in the evening. Take with meals. methocarbam 2022-0 Yes [id number] 1000mg Take 2 Univers oL 500 mg 7-19 tablets by ity of tablet 00:00: mouth 3 [place] 00 (three) Medical times Branch daily as needed for Pain (scale 4-6). acetaminoph 2022-0 Yes [id number] 1{tbl} Take 1 Un savi en-codeine 7-19 tablet by ity of 300-30 mg 00:00: mouth [place] tablet 00 every 4 Medical (four) Branch hours as needed for Pain (scale 4-6). Indication s: acute pain naproxen 2023-0 2023- No [id number] 500mg Take 1 Univers (NAPROSYN) 11-18-30 tablet by ity of 500 mg 00:00: 00:00 mouth in [place] tablet 00 :00 the Medical morning Branch and 1 tablet in the evening. Take with meals. methocarbam 2022- No [id number] 1000mg Take 2 Univers oL 500 mg 11-18-30 tablets by ity of tablet 00:00: 00:00 mouth 3 [place] 00 :00 (three) Medical times Branch daily as needed for Pain (scale 4-6). acetaminoph 2022- No [id number] 1{tbl} Take 1 U nivers en-codeine 11-18- tablet by ity of 300-30 mg 00:00: 00:00 mouth [place] tablet 00 :00 every 4 Medical (four) Branch hours as needed for Pain (scale 4-6). Indication s: acute pain lidocaine 2021-05- No 10mL 10 mL, Unive rs 1% (PF) 06-18 Infiltrati ity o f (XYLOCAINE) 03:19: 02:50 on, ONCE, [place] injection 00 :00 1 dose, On Medi marilia 10 mL [facility] Branch 04/16/22 at 2130, Routine lidocaine-r 2021-05 No 3mL 3 mL, Univ ers acepinep-te 06-18 Topical, ity of tracaine 02:15: 01:42 ONCE, 1 [place] (L.E.T. 00 :00 dose, On Medical (LIDO-EPINE [facility] Branch PH-TETRA)) 04/16/22 4-0.05-0.5 at 2015, % topical Routine gel 3 mL isosorbide Yes isosorbide U nivers mononitrate 03 mononitrat it y of 30 mg 24 hr 11:22: e ER 30 mg [place] tablet 04 tablet,ext Medical ended Branch release 24 hr metFORMIN 0 Yes metformin Uni vers 1,000 mg -03 1,000 mg ity of tablet 11:22: tablet Medical Branch metFORMIN 0 Yes metformin Uni vers 850 mg - 850 mg ity of tablet 11:22: tablet [address], Yes omega-3 Univers omega-3-aci 3-03 acid ethyl it y of d ethyl 11:22: esters 1 [place] esters, 1 04 gram Medical gram capsule Branch capsule pantoprazol Yes pantoprazo Univers e 40 mg EC 3-03 le 40 mg ity o f tablet 11:22: tablet,[address] Medical release Branch tapentadoL Yes Nucynta ER U nivers (NUCYNTA 3-03 150 mg ity of ER) 150 mg 11:22: tablet,ext [place] Tb12 ended Medical release Branch Take 1 tablet every 12 hours by oral route as directed for 30 days. topiramate Yes topiramate U nivers 25 mg 3-03 25 mg ity of tablet 11:22: tablet [address] isosorbide Yes isosorbide U nivers mononitrate 3-03 mononitrat it y of 30 mg 24 hr 11:22: e ER 30 mg [place] tablet 04 tablet,[facility] Medical ended Branch release 24 hr metFORMIN Yes metformin Uni vers 1,000 mg 3-03 1,000 mg ity of tablet 11:22: tablet [address] metFORMIN Yes metformin Uni vers 850 mg 3-03 850 mg ity of tablet 11:22: tablet [address], Yes omega-3 Univers omega-3-aci 3-03 acid ethyl it y of d ethyl 11:22: esters 1 [place] esters, 1 04 gram Medical gram capsule Branch capsule pantoprazol Yes pantoprazo Univers e 40 mg EC 3-03 le 40 mg ity o f tablet 11:22: tablet,[address] release Branch tapentadoL Yes Nucynta ER U nivers (NUCYNTA 3-03 150 mg ity of ER) 150 mg 11:22: tablet,ext [place] Tb12 04 ended Medical release Branch Take 1 tablet every 12 hours by oral route as directed for 30 days. topiramate Yes topiramate U nivers 25 mg 3-03 25 mg ity of tablet 11:22: tablet [address] isosorbide Yes isosorbide U nivers mononitrate 3-03 mononitrat it y of 30 mg 24 hr 11:22: e ER 30 mg [place] tablet 04 tablet,ext Medical ended Branch release 24 hr metFORMIN Yes metformin Uni vers 1,000 mg 3-03 1,000 mg ity of tablet 11:22: tablet [address] metFORMIN Yes metformin Uni vers 850 mg 3-03 850 mg ity of tablet 11:22: tablet [address] [place], Yes omega-3 Univers omega-3-aci 3-03 acid ethyl it y of d ethyl 11:22: esters 1 [place] esters, 1 04 gram Medical gram capsule Branch capsule pantoprazol Yes pantoprazo Univers e 40 mg EC 3-03 le 40 mg ity o f tablet 11:22: tablet,[place] [address] ayed Medical release Branch tapentadoL Yes Nucynta ER U nivers (NUCYNTA 3-03 150 mg ity of ER) 150 mg 11:22: tablet,ext [place] Tb12 ended Medical release Branch Take 1 tablet every 12 hours by oral route as directed for 30 days. topiramate Yes topiramate U nivers 25 mg 3-03 25 mg ity of tablet 11:22: tablet [address] isosorbide Yes isosorbide U nivers mononitrate 3-03 mononitrat it y of 30 mg 24 hr 11:22: e ER 30 mg [place] tablet 04 tablet,ext Medical ended Branch release 24 hr metFORMIN Yes metformin Uni vers 1,000 mg 3-03 1,000 mg ity of tablet 11:22: tablet [address] metFORMIN Yes metformin Uni vers 850 mg 3-03 850 mg ity of tablet 11:22: tablet [address] [place], Yes omega-3 Univers omega-3-aci 3-03 acid ethyl it y of d ethyl 11:22: esters 1 [place] esters, 1 04 gram Medical gram capsule Branch capsule pantoprazol Yes pantoprazo Univers e 40 mg EC 3-03 le 40 mg ity o f tablet 11:22: tablet,[address] Medical release Branch tapentadoL Yes Nucynta ER U nivers (NUCYNTA 3-03 150 mg ity of ER) 150 mg 11:22: tablet,ext [place] Tb12 04 ended Medical release Branch Take 1 tablet every 12 hours by oral route as directed for 30 days. topiramate Yes topiramate U nivers 25 mg 3-03 25 mg ity of tablet 11:22: tablet [address] isosorbide Yes isosorbide U nivers mononitrate 3-03 mononitrat it y of 30 mg 24 hr 11:22: e ER 30 mg [place] tablet 04 tablet,ext Medical ended Branch release 24 hr metFORMIN Yes metformin Uni vers 1,000 mg 3-03 1,000 mg ity of tablet 11:22: tablet [address] metFORMIN Yes metformin Uni vers 850 mg 3-03 850 mg ity of tablet 11:22: tablet [address] [facility], Yes omega-3 Univers omega-3-aci 3-03 acid ethyl it y of d ethyl 11:22: esters 1 [place] esters, 1 04 gram Medical gram capsule Branch capsule pantoprazol Yes pantoprazo Univers e 40 mg EC 3-03 le 40 mg ity o f tablet 11:22: tablet,del [place] [address] ayed Medical release Branch tapentadoL Yes Nucynta ER U nivers (NUCYNTA 3-03 150 mg ity of ER) 150 mg 11:22: tablet,ext [place] Tb12 ended Medical release Branch Take 1 tablet every 12 hours by oral route as directed for 30 days. topiramate Yes topiramate U nivers 25 mg 3-03 25 mg ity of tablet 11:22: tablet [address] isosorbide Yes isosorbide U nivers mononitrate 3-03 mononitrat it y of 30 mg 24 hr 11:22: e ER 30 mg [place] tablet 04 tablet,ext Medical ended Branch release 24 hr metFORMIN Yes metformin Uni vers 1,000 mg 3-03 1,000 mg ity of tablet 11:22: tablet [address] metFORMIN Yes metformin Uni vers 850 mg 3-03 850 mg ity of tablet 11:22: tablet [address] [place], Yes omega-3 Univers omega-3-aci 3-03 acid ethyl it y of d ethyl 11:22: esters 1 [place] esters, 1 04 gram Medical gram capsule Branch capsule pantoprazol Yes pantoprazo Univers e 40 mg EC 3-03 le 40 mg ity o f tablet 11:22: tablet,[facility] [place] [facility] release Branch tapentadoL Yes Nucynta ER U nivers (NUCYNTA 3-03 150 mg ity of ER) 150 mg 11:22: tablet,ext [place] Tb ended Medical release Branch Take 1 tablet every 12 hours by oral route as directed for 30 days. topiramate Yes topiramate U nivers 25 mg 3-03 25 mg ity of tablet 11:22: tablet [address] isosorbide Yes isosorbide U nivers mononitrate 3-03 mononitrat it y of 30 mg 24 hr 11:22: e ER 30 mg [place] tablet 04 tablet,[facility] Medical ended Branch release 24 hr metFORMIN Yes metformin Uni vers 1,000 mg 3-03 1,000 mg ity of tablet 11:22: tablet [address] metFORMIN Yes metformin Uni vers 850 mg 3-03 850 mg ity of tablet 11:22: tablet [address], Yes omega-3 Univers omega-3-aci 3-03 acid ethyl it y of d ethyl 11:22: esters 1 [place] esters, 1 04 gram Medical gram capsule Branch capsule pantoprazol Yes pantoprazo Univers e 40 mg EC 3-03 le 40 mg ity o f tablet 11:22: tablet,[address] release [place] tapentadoL Yes Nucynta ER U nivers (NUCYNTA 3-03 150 mg ity of ER) 150 mg 11:22: tablet,ext [place] Tb12 04 [facility] Medical release Branch Take 1 tablet every 12 hours by oral route as directed for 30 days. topiramate Yes topiramate U nivers 25 mg 3-03 25 mg ity of tablet 11:22: tablet [address] isosorbide Yes isosorbide U nivers mononitrate 3-03 mononitrat it y of 30 mg 24 hr 11:22: e ER 30 mg [place] tablet 04 tablet,ext Medical ended Branch release 24 hr metFORMIN Yes metformin Uni vers 1,000 mg - 1,000 mg ity of tablet 11:22: tablet [place] [address] Medical Branch metFORMIN Yes metformin Uni vers 850 mg 07-03 850 mg ity of tablet 11:22: tablet [place] [address] Medical Branch [place], Yes omega-3 Univers omega-3-aci 07-03 acid ethyl it y of d ethyl 11:22: esters 1 [place] esters, 1 04 gram Medical gram capsule Branch capsule pantoprazol Yes pantoprazo Univers e 40 mg EC 03 le 40 mg ity o f tablet 11:22: tablet,del [place] 04 ayed Medical release Branch tapentadoL Yes Nucynta ER U nivers (NUCYNTA - 150 mg ity of ER) 150 mg 11:22: tablet,ext [place] Tb12 04 ended Medical release Branch Take 1 tablet every 12 hours by oral route as directed for 30 days. topiramate Yes topiramate U nivers 25 mg 07-03 25 mg ity of tablet 11:22: tablet [address] Branch aspirin 81 Yes 1{tbl} Take 1 Uni vers mg Cap 07-03 tablet by ity of 11:22: mouth 03 daily. Medical Branch B-complex Yes Super B Unive rs with - Complex-Vi ity of vitamin C 11:22: tamin C [place] (SUPER B 03 Medical COMPLEX-VIT Branch STRINGER C ORAL) atenoloL 50 Yes 1{tbl} Take 1 Un savi mg tablet -03 tablet by ity o f 11:22: mouth 03 daily. Medical Branch clopidogreL Yes clopidogre Univers 75 mg 3-03 l 75 mg ity of tablet 11:22: tablet [place] [facility] cyclobenzap Yes cyclobenza Univers rine 5 mg -03 holden 5 mg ity of tablet 11:22: tablet [place] [address] Medical Branch ezetimibe Yes Zetia 10 Univ [...] ity of vitamin C 11:22: tamin C [place] (SUPER B 03 Medical COMPLEX-VIT Branch STRINGER C ORAL) atenoloL 50 Yes 1{tbl} Take 1 Un savi mg tablet 3-03 tablet by ity o f 11:22: mouth [place] 03 daily. Medical Branch clopidogreL Yes clopidogre Univers 75 mg 3-03 l 75 mg ity of tablet 11:22: tablet [place] [facility] cyclobenzap Yes cyclobenza Univers rine 5 mg 3-03 holden 5 mg ity of tablet 11:22: tablet [place] [facility] ezetimibe Yes Zetia 10 Univ [...] ity of vitamin C 11:22: tamin C [place] (SUPER B 03 Medical COMPLEX-VIT Branch STRINGER C ORAL) atenoloL 50 Yes 1{tbl} Take 1 Un savi mg tablet 3-03 tablet by ity o f 11:22: mouth [place] 03 daily. Medical Branch clopidogreL Yes clopidogre Univers 75 mg 3-03 l 75 mg ity of tablet 11:22: tablet [place] [facility] cyclobenzap Yes cyclobenza Univers rine [...] ity of vitamin C 11:22: tamin C [place] (SUPER B 03 Medical COMPLEX-VIT Branch STRINGER [...] ity of vitamin C 11:22: tamin C [place] (SUPER B 03 Medical COMPLEX-VIT Branch STRINGER [...] B-complex Yes Super B Unive rs with - Complex-Vi ity of vitamin C 11:22: tamin C [place] (SUPER B 03 Medical COMPLEX-VIT Branch STRINGER C ORAL) atenoloL 50 Yes 1{tbl} Take 1 Un savi mg tablet 3- tablet by ity o f 11:22: mouth [...] ity of vitamin C 11:22: tamin C [place] (SUPER B 03 Medical COMPLEX-VIT Branch STRINGER C ORAL) atenoloL 50 Yes 1{tbl} Take 1 Un saiv mg tablet 3-03 tablet by ity o f 11:22: mouth [place] daily. Medical Branch clopidogreL Yes clopidogre Univers 75 mg 3-03 l 75 mg ity of tablet 11:22: tablet Medical Branch cyclobenzap Yes cyclobenza Univers rine 5 mg -03 holden 5 mg ity of tablet 11:22: [...] ity of vitamin C 11:22: tamin C [place] (SUPER B 03 Medical COMPLEX-VIT Branch STRINGER C ORAL) atenoloL 50 Yes 1{tbl} Take 1 Un savi mg tablet 3-03 tablet by ity o f 11:22: mouth [place] daily. Medical Branch ezetimibe Yes Zetia 10 Univ ers (ZETIA) 10 3-03 mg tablet ity of mg tablet 11:22: Take 1 [place] 03 tablet Medical every day Branch by oral route. allopurinoL Yes 100mg Take 100 U nivers 100 mg 2-23 mg by ity of tablet 00:00: mouth. Medical Branch allopurinoL Yes 100mg Take 100 U nivers 100 mg 2-23 mg by ity of tablet 00:00: mouth. Medical Branch allopurinoL 2021-0 Yes 100mg Take 100 U nivers 100 mg 2-23 mg by ity of tablet 00:00: mouth. Medical Branch allopurinoL 2021-0 Yes 100mg Take 100 U nivers 100 mg 2-23 mg by ity of tablet 00:00: mouth. Medical Branch allopurinoL 2021-0 Yes 100mg Take 100 U nivers 100 mg 2-23 mg by ity of tablet 00:00: mouth. [place] [facility] allopurinoL 2021-0 Yes 100mg Take 100 U nivers 100 mg 2-23 mg by ity of tablet 00:00: mouth. [place] [facility] allopurinoL 2021-0 Yes 100mg Take 100 U nivers 100 mg 2-23 mg by ity of tablet 00:00: mouth. [place] [facility] allopurinoL 2021-0 Yes 100mg Take 100 U nivers 100 mg 2-23 mg by ity of tablet 00:00: mouth. [place] [facility] methocarbam 0 Yes [id number] 500mg Take 1 Univers oL 2-19 tablet [...] s: acute pain lidocaine 5 2021-0 Yes [id number] 1{patch Apply 1 Univers % (700 2-19 } Patch to ity of mg/patch) 00:00: area(s) [place] patch 00 daily. Medical Branch methocarbam 2021-0 Yes [id number] 500mg Take 1 Univers oL 2-19 tablet [...] s: acute pain lidocaine 5 2021-0 Yes [id number] 1{patch Apply 1 Univers % (700 2-19 } Patch to ity of mg/patch) 00:00: area(s) [place] patch 00 daily. Medical Branch methocarbam 0 Yes [id number] 500mg Take 1 Univers oL 2-19 tablet [...] s: acute pain lidocaine 5 2021-0 Yes [id number] 1{patch Apply 1 Univers % (700 2-19 } Patch to ity of mg/patch) 00:00: area(s) [place] patch 00 daily. Medical Branch methocarbam 0 Yes [id number] 500mg Take 1 Univers oL 2-19 tablet [...] s: acute pain lidocaine 5 2021-0 Yes [id number] 1{patch Apply 1 Univers % (700 2-19 } Patch to ity of mg/patch) 00:00: area(s) [place] patch 00 daily. Medical Branch methocarbam 2021-0 Yes [id number] 500mg Take 1 Univers oL 2-19 tablet by ity of (ROBAXIN) 00:00: mouth 3 [place] 500 mg 00 (three) Medical tablet times Branch daily as needed for Pain (scale 4-6). acetaminoph Yes [id number] 1{tbl} Take 1 Un savi en-codeine 2-19 tablet by ity of (TYLENOL-CO 00:00: mouth [place] DEINE #3) 00 every 6 Medical 300-30 mg (six) Branch tablet hours as needed for Pain (scale 4-6). Indication s: acute pain lidocaine 5 Yes [id number] 1{patch Apply 1 Univers % (700 2-19 } Patch to ity of mg/patch) 00:00: area(s) [place] patch 00 daily. Medical Branch lidocaine 5 Yes [id number] 1{patch Apply 1 Univers % (700 2-19 } Patch to ity of mg/patch) 00:00: area(s) [place] patch 00 daily. Medical Branch lidocaine 5 Yes [id number] 1{patch Apply 1 Univers % (700 2-19 } Patch to ity of mg/patch) 00:00: area(s) [place] patch 00 daily. Medical Branch lidocaine 5 2022- No [id number] 1{patch Apply 1 Univers % (700 2-19 08-30 } Patch to ity of mg/patch) 00:00: 00:00 area(s) [place] patch 00 :00 daily. Medical Branch methocarbam 2022- No [id number] 500mg Take 1 Univers oL 2-19 -19 tablet by ity of (ROBAXIN) 00:00: 00:00 mouth 3 [place] 500 mg 00 :00 (three) Medical tablet times Branch daily as needed for Pain (scale 4-6). acetaminoph 2022- No [id number] 1{tbl} Take 1 U nivers en-codeine 2-19 07-19 tablet by ity of (TYLENOL-CO 00:00: 00:00 mouth [place] DEINE #3) 00 :00 every 6 Medical 300-30 mg (six) Branch tablet hours as needed for Pain (scale 4-6). Indication s: acute pain glipiZIDE Yes Univers 10 mg 2-03 ity of tablet 00:00: [place] 00 Medical Branch glipiZIDE 0 Yes Univers 10 mg 2-03 ity of tablet 00:00: [place] [facility] glipiZIDE 2-0 Yes Univers 10 mg 2-03 ity of tablet 00:00: [place] [facility] glipiZIDE 2021-0 Yes Univers 10 mg 2-03 ity of tablet 00:00: [place] [facility] glipiZIDE 2021-0 Yes Univers 10 mg 2-03 ity of tablet 00:00: [place] [facility] glipiZIDE 2021-0 Yes Univers 10 mg 2-03 ity of tablet 00:00: [place] [facility] glipiZIDE 2021-0 Yes Univers 10 mg 2-03 ity of tablet 00:00: [place] [facility] glipiZIDE 2021-0 Yes Univers 10 mg 2-03 ity of tablet 00:00: [place] [facility] Branch amLODIPine 2021-0 Yes 10mg Take 10 mg U nivers 10 mg 1-04 by mouth ity of tablet 00:00: daily. [place] [facility] Branch atorvastati 2021-0 Yes 40mg Take 40 mg Univers n 40 mg 1-04 by mouth ity of tablet 00:00: daily. [place] [facility] Branch amLODIPine 2021-0 Yes 10mg Take 10 mg U nivers 10 mg 1-04 by mouth ity of tablet 00:00: daily. [place] [facility] Branch atorvastati 2021-0 Yes 40mg Take 40 mg Univers n 40 mg 1-04 by mouth ity of tablet 00:00: daily. [place] [facility] amLODIPine 2021-0 Yes 10mg Take 10 mg U nivers 10 mg 1-04 by mouth ity of tablet 00:00: daily. [place] [facility] Branch atorvastati 2021-0 Yes 40mg Take 40 mg Univers n 40 mg 1-04 by mouth ity of tablet 00:00: daily. [place] [facility] amLODIPine 2-0 Yes 10mg Take 10 mg U nivers 10 mg 1-04 by mouth ity of tablet 00:00: daily. [place] [facility] atorvastati 2021-0 Yes 40mg Take 40 mg Univers n 40 mg 1-04 by mouth ity of tablet 00:00: daily. [place] [facility] amLODIPine 2-0 Yes 10mg Take 10 mg U nivers 10 mg 1-04 by mouth ity of tablet 00:00: daily. Medical Branch atorvastati Yes 40mg Take 40 mg Univers n 40 mg 1-04 by mouth ity of tablet 00:00: daily. Medical Branch amLODIPine 0 Yes 10mg Take 10 mg U nivers 10 mg 1-04 by mouth ity of tablet 00:00: daily. Medical Branch atorvastati Yes 40mg Take 40 mg Univers n 40 mg 1-04 by mouth ity of tablet 00:00: daily. Medical Branch amLODIPine 0 Yes 10mg Take 10 mg U nivers 10 mg 1-04 by mouth ity of tablet 00:00: daily. Medical Branch atorvastati Yes 40mg Take 40 mg Univers n 40 mg 1-04 by mouth ity of tablet 00:00: daily. Medical Branch amLODIPine Yes 10mg Take 10 mg U nivers 10 mg 1-04 by mouth ity of tablet 00:00: daily. Medical Branch atorvastati Yes 40mg Take 40 mg Univers n 40 mg 1-04 by mouth ity of tablet 00:00: daily. Medical Branch glipiZIDE 2021- No 10mg Take 10 mg U nivers 10 mg 1-04 04-05 by mouth. ity of tablet 00:00: 04:59 [place] 00 :00 Medical Branch Plavix 2020-05 Yes Ahmed 1 tablet Memori a 2-08 Ahmed l 03:46: Uri 52 Plavix 2020-05 Yes Ahmed 1 tablet Memori a 2-08 Ahmed l 03:46: Uri 52 Plavix 2020-05 Yes Ahmed 1 tablet Memori a 2-08 Ahmed l 03:46: Uri 52 Plavix 2020-05 Yes Ahmed 1 tablet Memori a 2-08 Ahmed l 03:46: Uri 52 Plavix 2020-05 Yes Ahmed 1 tablet Memori a 2-08 Ahmed l 03:46: Uri 52 insulin 2023- No 20U inject 20 Univ [...] skin. Medical INSULIN) Branch 100 unit/mL injection Aspirin Yes Ahmed 1 tablet Memor ia 12-09 Ahmed l 02:46: Super B Yes Ahmed not Memoria Complex 12-09 Ahmed defined l 02:46: Nexium Yes Ahmed 1 capsule Memor ia 12-09 Ahmed l 02:46: Uri Allopurinol Yes Ahmed 1 tablet M emoria 12-09 Ahmed l 02:46: Uri Tessalon Yes Ahmed 1 capsule Mem oria Perles 12-09 Ahmed as needed l 02:46: Uri Isosorbide Yes Ahmed 1 tablet Me moria Mononitrate 12-09 Ahmed l CR 02:46: Uri Januvia Yes Ahmed 1 tablet Memor ia 12-09 Ahmed l 02:46: Uri Multivitami Yes Ahmed as direct Memoria n 12-09 Ahmed l 02:46: Uri Metoprolol Yes Ahmed 1/2 tablet Memoria Tartrate 12-09 Ahmed l 02:46: Uri Azithromyci Yes Ahmed 2 tablets Memoria n 12-09 Ahmed on the l 02:46: first day, Uri then 1 tablet daily for 4 days Metformin Yes Ahmed 1 tablet Mem oria HCl 12-09 Ahmed with a l 02:46: meal Uri Lisinopril Yes Ahmed 1 tablet Me moria 12-09 Ahmed l 02:46: Uri Vitamin C Yes Ahmed not Memoria 12-09 Ahmed defined l 02:46: Uri Crestor Yes Ahmed 1 tablet Memor ia 12-09 Ahmed l 02:46: Uri Lantus Yes Ahmed not Memoria SoloStar 12-09 Ahmed defined l 02:46: Uri Pro Air Yes Ahmed as direct Samuel mike 12-09 Ahmed l 02:46: Uri Lovaza Yes Ahmed 4 capsules Samuel mike 12-09 Ahmed l 02:46: Uri Aspirin 0 Yes Ahmed 1 tablet Memor ia 12-09 Ahmed l 02:46: Uri Super B Yes Ahmed not Memoria Complex 12-09 Ahmed defined l 02:46: Uri Nexium Yes Ahmed 1 capsule Memor ia 12-09 Ahmed l 02:46: Uri Allopurinol Yes Ahmed 1 tablet M emoria 12-09 Ahmed l 02:46: Uri Tessalon Yes Ahmed 1 capsule Mem oria Perles 12-09 Ahmed as needed l 02:46: Uri Isosorbide Yes Ahmed 1 tablet Me moria Mononitrate 12-09 Ahmed l CR 02:46: Uri Januvia Yes Ahmed 1 tablet Memor ia 12-09 Ahmed l 02:46: Uri Multivitami Yes Ahmed as direct Memoria n 12-09 Ahmed l 02:46: Uri Metoprolol Yes Ahmed 1/2 tablet Memoria Tartrate 12-09 Ahmed l 02:46: Uri Azithromyci Yes Ahmed 2 tablets Memoria n 12-09 Ahmed on the l 02:46: first day, Uri then 1 tablet daily for 4 days Pro Air Yes Ahmed as direct Samuel mike 12-09 Ahmed l 02:46: Uri Metformin Yes Ahmed 1 tablet Mem oria HCl 12-09 Ahmed with a l 02:46: meal Uri Lisinopril Yes Ahmed 1 tablet Me moria 12-09 Ahmed l 02:46: Uri Vitamin C Yes Ahmed not Memoria 12-09 Ahmed defined l 02:46: Uri Tessalon Yes Ahmed 1 capsule Mem oria Perles 12-09 Ahmed as needed l 02:46: Uri Aspirin Yes Ahmed 1 tablet Memor ia 12-09 Ahmed l 02:46: Uri Metoprolol Yes Ahmed 1/2 tablet Memoria Tartrate 12-09 Ahmed l 02:46: Uri Nexium Yes Ahmed 1 capsule Memor ia 12-09 Ahmed l 02:46: Uri Azithromyci Yes Ahmed 2 tablets Memoria n - Ahmed on the l 02:46: first day, Uri then 1 tablet daily for 4 days Super B Yes Ahmed not Memoria Complex 8- Ahmed defined l 02:46: Uri Lantus Yes Ahmed not Memoria SoloStar - Ahmed defined l 02:46: Uri Allopurinol Yes Ahmed 1 tablet M emoria 8- Ahmed l 02:46: Uri Lovaza Yes Ahmed 4 capsules Samuel mike 8- Ahmed l 02:46: Uri Multivitami Yes Ahmed as direct Memoria n 8- Ahmed l 02:46: Uri Metformin Yes Ahmed 1 tablet Mem oria HCl 12-09 Ahmed with a l 02:46: meal Uri Lisinopril Yes Ahmed 1 tablet Me moria 8- Ahmed l 02:46: Uri Januvia Yes Ahmed 1 tablet Memor ia 12-09 Ahmed l 02:46: Uri Crestor Yes Ahmed 1 tablet Memor ia 8- Ahmed l 02:46: Uri Vitamin C Yes Ahmed not Memoria 8- Ahmed defined l 02:46: Uri Crestor Yes Ahmed 1 tablet Memor ia - Ahmed l 02:46: Uri Lantus Yes Ahmed not Memoria SoloStar - Ahmed defined l 02:46: Uri Isosorbide Yes Ahmed 1 tablet Me moria Mononitrate - Ahmed l CR 02:46: Uri Pro Air Yes Ahmed as direct Samuel mike 8-09 Ahmed l 02:46: Uri Lovaza Yes Ahmed 4 capsules Samuel mike 8-09 Ahmed l 02:46: Uri Aspirin 0 Yes Ahmed 1 tablet Memor ia 8- Ahmed l 02:46: Uri Super B Yes Ahmed not Memoria Complex 8- Ahmed defined l 02:46: Uri Nexium Yes Ahmed 1 capsule Memor ia 8- Ahmed l 02:46: Uri Allopurinol Yes Ahmed 1 tablet M emoria 12-09 Ahmed l 02:46: Uri Tessalon Yes Ahmed 1 capsule Mem oria Perles 12-09 Ahmed as needed l 02:46: Uri Isosorbide Yes Ahmed 1 tablet Me moria Mononitrate 12-09 Ahmed l CR 02:46: Uri Januvia Yes Ahmed 1 tablet Memor ia 12-09 Ahmed l 02:46: Uri Multivitami Yes Ahmed as direct Memoria n 12-09 Ahmed l 02:46: Uri Pro Air Yes Ahmed as direct Samuel mike 12-09 Ahmed l 02:46: Uri Metoprolol Yes Ahmed 1/2 tablet Memoria Tartrate 12-09 Ahmed l 02:46: Uri Azithromyci Yes Ahmed 2 tablets Memoria n 12-09 Ahmed on the l 02:46: first day, Uri then 1 tablet daily for 4 days Metformin Yes Ahmed 1 tablet Mem oria HCl 12-09 Ahmed with a l 02:46: meal Uri Lisinopril Yes Ahmed 1 tablet Me moria 12-09 Ahmed l 02:46: Uri Vitamin C Yes Ahmed not Memoria 12-09 Ahmed defined l 02:46: Uri Tessalon Yes Ahmed 1 capsule Mem oria Perles 12-09 Ahmed as needed l 02:46: Uri Aspirin Yes Ahmed 1 tablet Memor ia 12-09 Ahmed l 02:46: Uri Metoprolol Yes Ahmed 1/2 tablet Memoria Tartrate 12-09 Ahmed l 02:46: Uri Nexium Yes Ahmed 1 capsule Memor ia 12-09 Ahmed l 02:46: Uri Azithromyci Yes Ahmed 2 tablets Memoria n - Ahmed on the l 02:46: first day, Uri then 1 tablet daily for 4 days Super B Yes Ahmed not Memoria Complex - Ahmed defined l 02:46: Uri Lantus Yes Ahmed not Memoria SoloStar 12-09 Ahmed defined l 02:46: Uri Allopurinol Yes Ahmed 1 tablet M emoria - Ahmed l 02:46: Uri Lovaza Yes Ahmed 4 capsules Samuel mike 12-09 Ahmed l 02:46: Uri Multivitami Yes Ahmed as direct Memoria n - Ahmed l 02:46: Uri Metformin Yes Ahmed 1 tablet Mem oria HCl 12-09 Ahmed with a l 02:46: meal Uri Lisinopril Yes Ahmed 1 tablet Me moria - Ahmed l 02:46: Uri Januvia Yes Ahmed 1 tablet Memor ia 12-09 Ahmed l 02:46: Uri Crestor Yes Ahmed 1 tablet Memor ia 12-09 Ahmed l 02:46: Uri Vitamin C Yes Ahmed not Memoria - Ahmed defined l 02:46: Uri Isosorbide Yes Ahmed 1 tablet Me moria Mononitrate 12-09 Ahmed l CR 02:46: Uri Crestor Yes Ahmed 1 tablet Memor ia 12-09 Ahmed l 02:46: Uri Lantus Yes Ahmed not Memoria SoloStar 12-09 Ahmed defined l 02:46: Uri Pro Air Yes Ahmed as direct Samuel mike 12-09 Ahmed l 02:46: Uri Lovaza Yes Ahmed 4 capsules Samuel mike - Ahmed l 02:46: Uri BLOOD-GLUCO Yes 1{each} 1 Each by Univers SE 3-16 NOT ity of METER,EDUARD 00:00: APPLICABLE [facility] 00 route. Medical Branch BLOOD-GLUCO Yes 1{each} 1 Each by Univers SE 3-16 NOT ity of METER,EDUARD 00:00: APPLICABLE [place] [facility] 00 route. Medical Branch BLOOD-GLUCO 2020-0 Yes 1{each} 1 Each by Univers SE 3-16 NOT ity of METER,EDUARD 00:00: APPLICABLE [place] NUOUS MISC 00 route. Medical Branch BLOOD-GLUCO 2020-0 Yes 1{each} 1 Each by Univers SE 3-16 NOT ity of METER,EDUARD 00:00: APPLICABLE [place] NUOUS MISC 00 route. Medical Branch BLOOD-GLUCO 2020-0 Yes 1{each} 1 Each by Univers SE 3-16 NOT ity of METER,EDUARD 00:00: APPLICABLE [place] NUOUS MISC 00 route. Medical Branch BLOOD-GLUCO 2020-0 Yes 1{each} 1 Each by Univers SE 3-16 NOT ity of METER,EDUARD 00:00: APPLICABLE [place] NUOUS MISC 00 route. Medical Branch BLOOD-GLUCO 2020-0 Yes 1{each} 1 Each by Univers SE 3-16 NOT ity of METER,EDUARD 00:00: APPLICABLE [place] NUOUS MISC 00 route. Medical Branch BLOOD-GLUCO 2020-0 Yes 1{each} 1 Each by Univers SE 3-16 NOT ity of METER,EDUARD 00:00: APPLICABLE [place] NUOUS MISC 00 route. Medical Branch Plavix 2020-0 Yes Ahmed 1 tablet Memori a 11-03 Ahmed l 02:53: Uri 17 Metformin 2020-0 Yes Ahmed 1 tablet Mem oria HCl 11-03 Ahmed with a l 02:53: meal Uri 17 Plavix 2020-0 Yes Ahmed 1 tablet Memori a 11-03 Ahmed l 02:53: Uri 17 Plavix 2020-0 Yes Ahmed 1 tablet Memori a 11-03 Ahmed l 02:53: Uri 17 Lisinopril 2020-0 Yes Ahmed 1 tablet Me moria 11-03 Ahmed l 02:53: Uri 17 Metoprolol 2020-0 Yes Ahmed 1/2 tablet Memoria Tartrate 11-03 Ahmed l 02:53: Uri 17 Azithromyci 2020-0 Yes Ahmed 2 tablets Memoria n 11-03 Ahmed on the l 02:53: first day, Uri 17 then 1 tablet daily for 4 days Metformin 2020-0 Yes Ahmed 1 tablet Mem oria HCl 7- Ahmed with a l 02:53: meal [place] 17 Lisinopril 2020-0 Yes Ahmed 1 tablet Me moria 7- Ahmed l 02:53: 17 Metoprolol 2020-0 Yes Ahmed 1/2 tablet Memoria Tartrate - Ahmed l 02:53: Uri 17 Azithromyci 2020-0 Yes Ahmed 2 tablets Memoria n 7-04 Ahmed on the l 02:53: first day, Uri 17 then 1 tablet daily for 4 days Metformin 2020-0 Yes Ahmed 1 tablet Mem oria HCl 7- Ahmed with a l 02:53: meal Uri 17 Plavix 2020-0 Yes Ahmed 1 tablet Memori a - Ahmed l 02:53: 17 Lisinopril 2020-0 Yes Ahmed 1 tablet Me moria - Ahmed l 02:53: [place] 17 Metoprolol 2020-0 Yes Ahmed 1/2 tablet Memoria Tartrate - Ahmed l 02:53: Uri 17 Azithromyci 2020-0 Yes Ahmed 2 tablets Memoria n - Ahmed on the l 02:53: first day, Uri 17 then 1 tablet daily for 4 days Metformin 2020-0 Yes Ahmed 1 tablet Mem oria HCl - Ahmed with a l 02:53: meal Uri 17 Lisinopril 2020-0 Yes Ahmed 1 tablet Me moria - Ahmed l 02:53: Uri 17 Metoprolol 2020-0 Yes Ahmed 1/2 tablet Memoria Tartrate - Ahmed l 02:53: [place] 17 Azithromyci 2020-0 Yes Ahmed 2 tablets Memoria n 7-04 Ahmed on the l 02:53: first day, [place] 17 then 1 tablet daily for 4 days Plavix 2020-0 Yes Ahmed 1 tablet Memori a - Ahmed l 02:53: Uri 17 Metformin 2020-0 Yes Ahmed 1 tablet Mem oria HCl 7-04 Ahmed with a l 02:53: meal Uri 17 Lisinopril 2020-0 Yes Ahmed 1 tablet Me moria 7-04 Ahmed l 02:53: [place] 17 Metoprolol 2020-0 Yes Ahmed 1/2 tablet Memoria Tartrate 7-04 Ahmed l 02:53: Uri 17 Azithromyci 2020-0 Yes Ahmed 2 tablets Memoria n 7-04 Ahmed on the l 02:53: first day, [place] 17 then 1 tablet daily for 4 days [place]-3 2018-05 Yes 1{tbl} Take 1 Tab Un savi Fatty Acids 2-01 by mouth ity of (FISH OIL 16:35: every 6 [place] CONCENTRATE 30 (six) Medical ) 1,000 mg hours. Branch [facility] [place]-3 2018-05 Yes 1{tbl} Take 1 Tab Un savi Fatty Acids 2-01 by mouth ity of (FISH OIL 16:35: every 6 [place] CONCENTRATE 30 (six) Medical ) 1,000 mg hours. Branch [facility] [place]-3 2018-05 Yes 1{tbl} Take 1 Tab Un savi Fatty Acids 2-01 by mouth ity of (FISH OIL 16:35: every 6 [place] CONCENTRATE 30 (six) Medical ) 1,000 mg hours. Branch [facility] [place]-3 2018-05 Yes 1{tbl} Take 1 Tab Un savi Fatty Acids 2-01 by mouth ity of (FISH OIL 16:35: every 6 [place] CONCENTRATE 30 (six) Medical ) 1,000 mg hours. Branch [facility] Oxford-3 2018-05 Yes 1{tbl} Take 1 Tab Un savi Fatty Acids 2-01 by mouth ity of (FISH OIL 16:35: every 6 [place] CONCENTRATE 30 (six) Medical ) 1,000 mg hours. Branch [facility] Oxford-3 2018-05 Yes 1{tbl} Take 1 Tab Un savi Fatty Acids 2-01 by mouth ity of (FISH OIL 16:35: every 6 [place] CONCENTRATE 30 (six) Medical ) 1,000 mg hours. Branch [facility] Oxford-3 2018-05 Yes 1{tbl} Take 1 Tab Un savi Fatty Acids 2-01 by mouth ity of (FISH OIL 16:35: every 6 [place] CONCENTRATE 30 (six) Medical ) 1,000 mg hours. Branch [facility] [place]-3 2018-05 Yes 1{tbl} Take 1 Tab Un savi Fatty Acids 2-01 by mouth ity of (FISH OIL 16:35: every 6 [place] CONCENTRATE 30 (six) Medical ) 1,000 mg hours. Branch [facility] insulin NPH 2018-05 Yes [id number] 10U inject 10 Univers and regular 2-01 Units ity of human 70-30 00:00: [place] the [place] 100 unit/mL 00 skin every Me dical (70-30) morning Branch injection and evening. flash 2018- Yes [id number] 1U 1 Units Univ ers glucose 2-01 before ity of [place] 00:00: [place] [facility] (FREESTYLE bedtime. Bran h AZUL 14 DAY READER) [facility] flash 2018-05 Yes [id number] 1{kit} 1 Kit Univ ers glucose 2-01 before ity of sensor 00:00: meals and [place] (FREESTYLE 00 at [facility] AZUL 14 bedtime. Branch DAY SENSOR) Kit Insulin 2018-05 Yes [id number] Use as Uni vers Syringes, 2- directed ity of Disposable, 00:00: [place] 1 mL Syrg 00 [facility] insulin NPH 2018-05 Yes [id number] 10U inject 10 Univers and regular 2-01 Units ity of human 70-30 00:00: [place] the [place] 100 unit/mL 00 skin every Me dical (70-30) morning Branch injection and evening. flash 2018-05 Yes [id number] 1U 1 Units Univ ers glucose 2-01 before ity of scanning 00:00: [place] [facility] (FREESTYLE bedtime. Bran h AZUL 14 DAY READER) [facility] flash 2018-05 Yes [id number] 1{kit} 1 Kit Univ ers glucose 2-01 before ity of sensor 00:00: meals and [place] (FREESTYLE 00 at [facility] AZUL 14 bedtime. Branch DAY SENSOR) Kit Insulin 2018-05 Yes [id number] Use as Uni vers Syringes, 2- directed ity of Disposable, 00:00: [place] 1 mL Syrg 00 Medical Branch insulin NPH 2018-05 Yes [id number] 10U inject 10 Univers and regular 2-01 Units ity of human 70-30 00:00: under the [place] 100 unit/mL 00 skin every Me dical (70-30) morning Branch injection and evening. flash 2018- Yes [id number] 1U 1 Units Univ ers glucose 2-01 before ity of scanning 00:00: [place] [facility] (FREESTYLE bedtime. Bran h AZUL 14 DAY READER) [facility] flash 2018-05 Yes [id number] 1{kit} 1 Kit Univ ers glucose 2- before ity of sensor 00:00: meals and [place] (FREESTYLE 00 at [facility] AZUL 14 bedtime. Branch DAY SENSOR) Kit Insulin 2018-05 Yes [id number] Use as Uni vers Syringes, 2- directed ity of Disposable, 00:00: [place] 1 mL Syrg 00 [facility] insulin NPH 2018-05 Yes [id number] 10U inject 10 Univers and regular 2-01 Units ity of human 70-30 00:00: [place] the [place] 100 unit/mL 00 skin every Me dical (70-30) morning Branch injection and evening. flash 2018-05 Yes [id number] 1U 1 Units Univ ers glucose 2- before ity of scanning 00:00: [place] at Medical (FREESTYLE bedtime. Bran h AZUL 14 DAY READER) [facility] flash 2018-05 Yes [id number] 1{kit} 1 Kit Univ ers glucose 2- before ity of sensor 00:00: meals and [place] (FREESTYLE 00 at Medical AZUL 14 bedtime. Branch DAY SENSOR) Kit Insulin 2018-05 Yes [id number] Use as Uni vers Syringes, 2- directed ity of Disposable, 00:00: [place] 1 mL Syrg 00 [facility] insulin NPH 2018-05 Yes [id number] 10U inject 10 Univers and regular 2-01 Units ity of human 70-30 00:00: under the [place] 100 unit/mL 00 skin every Me dical (70-30) morning Branch injection and evening. flash 2018-05 Yes [id number] 1U 1 Units Univ ers glucose 2-01 before ity of scanning 00:00: [place] 00 at Medical (FREESTYLE bedtime. Bran h AZUL 14 DAY READER) [facility] flash 2018-05 Yes [id number] 1{kit} 1 Kit Univ ers glucose 2-01 before ity of sensor 00:00: meals and [place] (FREESTYLE 00 at Medical AZUL 14 bedtime. Branch DAY SENSOR) Kit Insulin 2018-05 Yes [id number] Use as Uni vers Syringes, 2- directed ity of Disposable, 00:00: [place] 1 mL Syrg 00 Medical Branch insulin NPH 2018-05 Yes [id number] 10U inject 10 Univers and regular 2-01 Units ity of human 70-30 00:00: under the [place] 100 unit/mL 00 skin every Me dical (70-30) morning Branch injection and evening. flash 2018- Yes [id number] 1U 1 Units Univ ers glucose 2-01 before ity of scanning 00:00: [place] 00 at Medical (FREESTYLE bedtime. Bran h AZUL 14 DAY READER) [facility] flash 2018-05 Yes [id number] 1{kit} 1 Kit Univ ers glucose 2-01 before ity of sensor 00:00: meals and [place] (FREESTYLE 00 at Medical AZUL 14 bedtime. Branch DAY SENSOR) Kit Insulin 2018-05 Yes [id number] Use as Uni vers Syringes, 2- directed ity of Disposable, 00:00: [place] 1 mL Syrg 00 Medical Branch insulin NPH 2018-05 Yes [id number] 10U inject 10 Univers and regular 2-01 Units ity of human 70-30 00:00: under the [place] 100 unit/mL 00 skin every Me dical (70-30) morning Branch injection and evening. flash 2018-05 Yes [id number] 1U 1 Units Univ ers glucose 2-01 before ity of scanning 00:00: [place] [facility] (FREESTYLE bedtime. Bran h AZUL 14 DAY READER) [facility] flash 2018-05 Yes [id number] 1{kit} 1 Kit Univ ers glucose 2-01 before ity of sensor 00:00: meals and [place] (FREESTYLE 00 at [facility] AZUL 14 bedtime. Branch DAY SENSOR) Kit Insulin 2018-05 Yes [id number] Use as Uni vers Syringes, 2-01 directed ity of Disposable, 00:00: [place] 1 mL Syrg 00 Medical Branch insulin NPH 2018-05 Yes [id number] 10U inject 10 Univers and regular 2-01 Units ity of human 70-30 00:00: under the [place] 100 unit/mL 00 skin every Me dical (70-30) morning Branch injection and evening. flash 2018- Yes [id number] 1U 1 Units Univ ers glucose 2-01 before ity of scanning 00:00: [place] [facility] (FREESTYLE bedtime. Bran h AZUL 14 DAY READER) Misc flash 2018-05 Yes [id number] 1{kit} 1 Kit Univ ers glucose 2- before ity of sensor 00:00: meals and [place] (FREESTYLE 00 at [facility] AZUL 14 bedtime. DAY SENSOR) Kit Insulin 2018-05 Yes [id number] Use as Uni vers Syringes, 2- directed ity of Disposable, 00:00: [place] 1 mL Syrg 00 Medical Branch methocarbam 2018-05 Yes [id number] 750mg Take 1 Univers ol 0-01 tablet by ity of (ROBAXIN-75 00:00: mouth 4 [place] 0) 750 mg 00 (four) Medical tablet times Branch daily. methocarbam 2018-05 Yes [id number] 750mg Take 1 Univers ol 0-01 tablet by ity of (ROBAXIN-75 00:00: mouth 4 [place] 0) 750 mg 00 (four) Medical tablet times Branch daily. methocarbam 2018-05 Yes [id number] 750mg Take 1 Univers ol 0-01 tablet by ity of (ROBAXIN-75 00:00: mouth 4 [place] 0) 750 mg 00 (four) Medical tablet times Branch daily. methocarbam 2018-05 Yes [id number] 750mg Take 1 Univers ol 0-01 tablet by ity of (ROBAXIN-75 00:00: mouth 4 [place] 0) 750 mg 00 (four) Medical tablet times Branch daily. methocarbam 2018-05 Yes [id number] 750mg Take 1 Univers ol 0-01 tablet by ity of (ROBAXIN-75 00:00: mouth 4 [place] 0) 750 mg 00 (four) Medical tablet times Branch daily. methocarbam 2018-05- No [id number] 750mg Take 1 Univers ol 0-01 07-19 tablet by ity of (ROBAXIN-75 00:00: 00:00 mouth 4 [place] 750 mg 00 :00 (four) Medical tablet times Branch daily. Vitamin C Yes Ahmed not Memoria 4-23 Ahmed defined l 03:16: [place] 57 Vitamin C Yes Ahmed not Memoria 4-23 Ahmed defined l 03:16: [place] 57 Vitamin C Yes Ahmed not Memoria 4-23 Ahmed defined l 03:16: [place] 57 Vitamin C Yes Ahmed not Memoria 4-23 Ahmed defined l 03:16: [place] 57 Vitamin C 2019-0 Yes Ahmed not Memoria 4-23 Ahmed defined l 03:16: [place] 57 benzonatate 2018-0 Yes 100mg Take 1 Uni vers 100 mg 7-23 capsule by ity of capsule 00:00: mouth 3 [place] (three) Medical times Branch daily as needed [...] by ity of capsule 00:00: mouth 3 (three) Medical times Branch daily as needed [...] by ity of capsule 00:00: mouth 3 (three) Medical times Branch daily as needed [...] ch solution Wheezing or Shortness of Breath. albuterol 2018-0 Yes 2.5mg Inhale 3 Uni vers 2.5 mg /3 7-23 mL every 4 ity of mL (0.083 00:00: (four) [place] %) 00 hours as Medical nebulizer needed for Bran ch solution Wheezing or Shortness of Breath. benzonatate 2018-0 2022- No 100mg Take 1 Un savi 100 mg 7-23 08-30 capsule by ity of capsule 00:00: 00:00 mouth 3 [place] 00 :00 (three) Medical times Branch daily as needed for Cough. naproxen 2018-0 Yes 500mg Take 1 Univer [...] times Branch daily with meals. naproxen 2018-0 3- No 500mg Take 1 Unive rs (NAPROSYN) 3-07 -19 tablet by ity of 500 mg 00:00: 00:00 mouth 2 [place] tablet 00 :00 (two) Medical times Branch daily with meals. [...] Name Observation Time Observation Value Comments Source Systolic blood 2022-12-31 03:03:00 117 mm[Hg] Univer [facility]ity of [facility] Diastolic blood 2022-12-31 03:03:00 80 mm[facility]Hg[facility] 2022-12-31 03:03:00 77 /min [facility] Body temperature 2022-12-31 03:03:00 36.61 Rika [facility] Respiratory rate 2022-12-31 03:03:00 20 /min [facility] Body height 2022-12-31 03:03:00 180.3 cm [facility] Body weight 2022-12-31 03:03:00 104.327 kg [facility] BMI 2022-12-31 03:03:00 32.08 kg/m2 [facility] Oxygen saturation in 2022-12-31 03:03:00 100 /min [facility] Arterial blood by [facility] Pulse oximetry Branch Systolic blood 2022-11-18 18:59:00 145 mm[Hg] Univer sity [facility] [place] [facility] Diastolic blood 2022-11-18 18:59:00 91 mm[Hg] [facility] 2022-11-18 18:59:00 68 /min [facility] Body temperature 2022-11-18 18:59:00 37.11 Rika [facility] Respiratory rate 2022-11-18 18:59:00 20 /min [facility] Body weight 2022-11-18 18:59:00 104.327 kg [facility] [place] [facility] BMI 2022-11-18 18:59:00 32.08 kg/m2 [facility] [place] [facility] Oxygen saturation in 2022-11-18 18:59:00 100 /min University of Arterial blood by [place] [facility] Pulse oximetry Branch Body height 2022-04-20 20:34:00 180.3 cm [facility] [place] [facility] Body weight 2022-04-20 20:34:00 104.327 kg [facility] [place] [facility] BMI 2022-04-20 20:34:00 32.08 kg/m2 [facility] [place] [facility] Systolic blood 2022-04-17 00:00:00 187 mm[Hg] Univer sity of pressure [place] [facility] Diastolic blood 2022-04-17 00:00:00 112 mm[Hg] Unive rsity of pressure [place] [facility] Heart rate 2022-04-17 00:00:00 81 /min [facility] [place] [facility] Body temperature 2022-04-17 00:00:00 37.89 Rika [facility] ers[facility] [place] [facility] Respiratory rate 2022-04-17 00:00:00 18 /min [facility] [place] [facility] Body height 2022-04-17 00:00:00 180.3 cm [facility] [place] [facility] Body weight 2022-04-17 00:00:00 104.327 kg [facility] [place] [facility] BMI 2022-04-17 00:00:00 32.08 kg/m2 [facility] [place] [facility] Oxygen saturation in 2022-04-17 00:00:00 99 /min University of Arterial blood by [facility] marilia Pulse oximetry Branch Systolic blood 2021-07-03 17:14:00 119 mm[Hg] Univer sity of pressure [place] [facility] Diastolic blood 2021-07-03 17:14:00 71 mm[Hg] Unive rsity of pressure [place] [facility] Heart rate 2021-07-03 17:14:00 66 /min [facility] [place] [facility] Body temperature 2021-07-03 17:14:00 37.11 Rika [facility] [place] [facility] Body height 2021-07-03 17:14:00 180.3 cm [facility] [place] [facility] Body weight 2021-07-03 17:14:00 115.259 kg [facility] BMI 2021-07-03 17:14:00 35.44 kg/m2 [facility] Oxygen saturation in 2021-07-03 17:14:00 97 /min [facility] Arterial blood by [facility] [facility] Pulse oximetry Branch Weight 2020-06-13 19:45:00 [facility] Height 2020-06-13 19:45:00 [facility] Heart Rate 2020-06-13 19:45:00 [facility] Diastolic (mm Hg) 2020-06-13 19:45:00 [facility] Systolic (mm Hg) 2020-06-13 19:45:00 [facility] Weight 2020-05-09 16:30:00 [facility] Height 2020-05-09 16:30:00 [facility] Heart Rate 2020-05-09 16:30:00 [facility] Diastolic (mm Hg) 2020-05-09 16:30:00 [facility] Systolic (mm Hg) 2020-05-09 16:30:00 [facility] Weight 2019-03-13 15:30:00 [facility] Heart Rate 2019-03-13 15:30:00 [facility] Diastolic (mm Hg) 2019-03-13 15:30:00 [facility] Systolic (mm Hg) 2019-03-13 15:30:00 Samuel [facility] [facility] Weight 2018-04-05 16:30:00 [facility] Heart Rate 2018-04-05 16:30:00 [facility] Diastolic (mm Hg) 2018-04-05 16:30:00 [facility] Systolic (mm Hg) 2018-04-05 16:30:00 Samuel [facility] Weight 2018-03-09 18:15:00 [facility] Heart Rate 2018-03-09 18:15:00 [facility] Diastolic (mm Hg) 2018-03-09 18:15:00 [facility] Systolic (mm Hg) 2018-03-09 18:15:00 Samuel [facility] Weight 2017-05-05 16:45:00 [facility] Heart Rate 2017-05-05 16:45:00 [facility] Diastolic (mm Hg) 2017-05-05 16:45:00 [facility] Systolic (mm Hg) 2017-05-05 16:45:00 Samuel jones [facility] Weight 2017-04-15 17:30:00 [facility] Heart Rate 2017-04-15 17:30:00 [facility] Diastolic (mm Hg) 2017-04-15 17:30:00 [facility] Systolic (mm Hg) 2017-04-15 17:30:00 Samuel robert [facility] Procedures Procedure Date / Time Performed Performing Clinician [facility] NOTICE OF PRIVACY 2022-12-31 02:55:34 Doctor Unassigned, No Univ [facility] PRACTICES Name Medical Branch CONSENT/REFUSAL FOR 2022-12-31 02:54:43 Doctor Unassigned, No [facility] [place] DIAGNOSIS AND Name Medical Branch TREATMENT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
[2023-01-03] MEDS ORDERED: HYDROCODONE/APAP 10/325 TAB ONE (01:56)
[2023-01-03] MEDS ORDERED: IBUPROFEN 400 MG TAB ONE (01:56)
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
[2023-01-03 05:22] VITALS: TEMP 98.3
[2023-01-03 05:27] VITALS: BP 125/83; O2SAT 97
--- NOTE | 2023-01-03 17:27 | RAD REPORT ---
EXAM DESCRIPTION: CT - Head C Spine Cap Con - 01/03/2023 6:55 am CLINICAL HISTORY: PAIN trauma TECHNIQUE: Contiguous axial CT images obtained through the brain without IV contrast. Coronal and sa gittal reformatted images were provided. This exam was performed according to our departmental dose-optimization program, which includes autom ated exposure control, adjustment of the mA and/or kV according to patient size and/or use of iterati ve reconstruction technique. COMPARISON: May 2018 FINDINGS: Brain: No significant white matter changes. No focal mass effect. Velázquez-white matter differ entiation is within normal limits. No hemorrhage. Ventricles: No ventriculomegaly or midline shift. Extra-axial spaces: No extra-axial collection or hemorrhage. Paranasal sinuses and mastoid air cells: Small right maxillary mucous retention cyst or polyp. Bones: Unremarkable Soft tissues: Unremarkable IMPRESSION: 1. No acute intracranial injury. EXAM DESCRIPTION: Head C Spine Cap Wo Con CLINICAL HISTORY: PAIN TECHNIQUE: Contiguous axial CT images obtained through the cervical spine without IV contrast. Cor onal and sagittal reformatted images also provided. This exam was performed according to our departmental dose-optimization program, which includes autom ated exposure control, adjustment of the mA and/or kV according to patient size and/or use of iterati ve reconstruction technique. COMPARISON: None available for comparison FINDINGS: Vertebra: No acute fracture or subluxation. Status post anterior cervical fusion at C5-C7. There is also fusion of C4 on C5. Degenerative changes: Large anterior osteophytes at C2-C4 Prevertebral soft tissues: Unremarkable Lung apices: Clear IMPRESSION: No acute cervical spine fracture. Postsurgical and degenerative changes of the cervical spine. IPROCEDURE: Head C Spine Cap Wo Con CLINICAL HISTORY: PAIN TECHNIQUE: Contiguous axial images obtained through the chest , abdomen and pelvis following the une ventful administration of IV contrast. Coronal and sagittal reformatted images provided. This exam was performed according to our departmental dose-optimization program, which includes autom ated exposure control, adjustment of the mA and/or kV according to patient size and/or use of iterati ve reconstruction technique. COMPARISON: No prior exams provided for comparison. FINDINGS: Lungs: No focal consolidation. Airways are patent. Pleura: No effusion. No pneumothorax. Heart and pericardium: The heart is normal in size. No pericardial effusion. Mediastinum and randolph: Evaluation of the mediastinum and vasculature is limited without intravenous co ntrast. Lower neck and chest wall: Status post median sternotomy. Vessels: Unremarkable Bones: Unremarkable Evaluation of intra-abdominal viscera is limited without intravenous contrast. Liver: Unremarkable Gallbladder and biliary system: Small gallstones or sludge. Pancreas: Unremarkable Spleen: Unremarkable Adrenals: Unremarkable Kidneys: Small nonobstructive stone in the right kidney measuring less than 2 mm. Gl : No obstruction. No appreciable mucosal thickening. Appendix: No findings to suggest acute appendicitis. Urinary bladder: Unremarkable Reproductive: Unremarkable as visualized Lymph nodes: No pathologically enlarged lymph nodes. Peritoneum: No focal fluid collection. No free air. Vessels: No abdominal aortic aneurysm. Abdominal wall: Unremarkable Bones: Unremarkable IMPRESSION: 1. No acute injury in the chest, abdomen or pelvis. 2. Small gallstones or sludge. 3. Small nonobstructive stone in the right kidney. 4. Limited evaluation without intravenous contrast. Electronically signed by: Konstantin Singleton MD 01/03/2023 4:30 AM CDT Due to temporary technical issues with the PACS/Fluency reporting system, reports are being signed by the in house radiologists without review as a courtesy to insure prompt reporting. The interpreting radiologist is fully responsible for the content of the report.
== END 2023-01-03 05:17 | disposition home or self-care (01) ==
LOC: ER 01:15
DX: S16.1XXA Strain of muscle, fascia and tendon at neck level, initial encounter (principal); S39.011A Strain of muscle, fascia and tendon of abdomen, initial encounter; S39.012A Strain of muscle, fascia and tendon of lower back, initial encounter; S39.013A Strain of muscle, fascia and tendon of pelvis, initial encounter; V49.40XA Driver injured in collision with unspecified motor vehicles in traffic accident, initial encounter; I10 Essential (primary) hypertension; F17.220 Nicotine dependence, chewing tobacco, uncomplicated; Z95.1 Presence of aortocoronary bypass graft
CPT/HCPCS: 70450; 71250; 72125; 99284

== ENCOUNTER 2024-02-21 19:10 | Emergency (ER) | payer OTHER ==
[2024-02-21] MEDS ORDERED: METHYLPREDNISOLONE 125 MG INJ ONE (20:37)
[2024-02-21] MEDS ORDERED: FAMOTIDINE 20 MG/2 ML VIAL IV ONE (20:37)
[2024-02-21] MEDS ORDERED: DIPHENHYDRAMINE 50 MG/ML VIAL ONE (20:37)
[2024-02-21] MEDS ORDERED: NA CHLORIDE 0.9% 1,000 ML ONE (20:51)
--- NOTE | 2024-02-21 23:32 | EDPHYS ---
Physician Documentation [facility] Name: Manfred Canales Jr Age: 53 yrs Sex: Male : 1970 Arrival Date: 02/21/2024 Time: 19:10 Bed 9 Private MD: ED Physician Dany Ayers HPI: 02/20 20:03 This 53 yrs old Black Male presents to ER via Ambulatory with complaints of Itching, sp4 Allergic Reaction. 20:18 53-year-old male presents with diffuse itching and discomfort. Patient has history of sp4 diabetes, chronic back pain, gout, high cholesterol, hypertension, he has had trial of IT or pain pump with fluoroscopic guidance and Versed. After that he has developed generalized itching without hives. . Historical: - Allergies: 19:53 No Known Allergies; cm10 - PMHx: 19:53 Diabetes - NIDDM; Gout; High Cholesterol; Hypertension; Myocardial infarction; cm10 - PSHx: 19:53 carpal tunnel; Coronary artery bypass graft; disc fusion; Stented artery; cm10 - Immunization history:: Adult Immunizations up to date. - Infectious Disease History:: Denies. - Social history:: Smoking status: unknown. - Family history:: not pertinent. ROS: 20:18 Constitutional: Negative for fever, chills, and weight loss, Positive for generalized sp4 pruritis 20:18 All other systems are negative, Exam: 20:18 Constitutional: This is a well developed, well nourished patient who is awake, alert, sp4 and in no acute distress. Head/Face: Normocephalic, atraumatic. Eyes: Pupils equal round and reactive to light, extra-ocular motions intact. Lids and lashes normal. Conjunctiva and sclera are not injected. Cornea within normal limits. Periorbital areas with no swelling, redness, or edema. ENT: Nares patent. No nasal discharge, no septal abnormalities noted. Tympanic membranes are normal and external auditory canals are clear. Oropharynx with no redness, swelling, or masses, exudates, or evidence of obstruction, uvula midline. Mucous membranes moist. Neck: Trachea midline, no thyromegaly or masses palpated, and no cervical lymphadenopathy. Supple, full range of motion without nuchal rigidity, or vertebral point tenderness. Chest/axilla: Normal chest wall appearance and motion. Nontender with no deformity. No lesions are appreciated. Cardiovascular: Regular rate and rhythm with a normal S1 and S2. No gallops, murmurs, or rubs. Normal PMI, no JVD. No pulse deficits. Respiratory: Lungs have equal breath sounds bilaterally, clear to auscultation and percussion. No rales, rhonchi or wheezes noted. No increased work of breathing, no retractions or nasal flaring. Abdomen/GI: Soft, with normal bowel sounds. No distension or tympany. No guarding or rebound. No evidence of tenderness throughout. Back: No spinal tenderness. No costovertebral tenderness. Skin: Warm, dry with normal turgor. Normal color with no rashes, no lesions, and no evidence of cellulitis. MS/ Extremity: Pulses equal, no cyanosis. Neurovascular intact. Full, normal range of motion. Neuro: Awake and alert, GCS 15, oriented to person, place, time, and situation. Cranial nerves II-XII grossly intact. Motor strength 5/5 in all extremities. Sensory grossly intact. Psych: Awake, alert, with orientation to person, place and time. Behavior, mood, and affect are within normal limits Vital Signs: 19:51 BP 138 / 74; Pulse 70; Resp 16; Temp 96.9(IR); Pulse Ox 96% on R/A; Weight 104.33 kg; cm10 Height 5 ft. 11 in. ; Pain 0/10; 20:00 BP 134 / 74; Pulse 64; Resp 16; Pulse Ox 99% on R/A; Pain 0/10; ar6 21:58 BP 128 / 72; Pulse 67; Resp 16; Pulse Ox 99% on R/A; ar6 19:51 Body Mass Index 32.08 (104.33 kg, 180.34 cm) cm10 19:51 Pain Scale: Adult cm10 20:00 Pain Scale: Adult ar6 Dashawn Coma Score: 20:18 Eye Response: spontaneous(4). Motor Response: obeys commands(6). Verbal Response: sp4 oriented(5). Total: 15. MDM: 19:55 Medical Screening Exam initiated sb4 02/21 06:28 Differential diagnosis: anaphylaxis, angioedema, bronchospasm, urticaria, Vasovagal sp4 Reactions. Data reviewed: vital signs, nurses notes, old medical records. ED course: Patient is stable for discharge home. Itching has stopped. Most likely an adverse reaction to anesthetic Versed during the IT pump trial. 02/20 20:17 Order name: IV Saline Lock; Complete Time: 20:40 sp4 Administered Medications: 02/20 22:09 Discontinued: ns 0.9% 1000 ml IV at 1 bolus Per protocol; to be given as a bolus over ar6 60 minutes 20:49 Drug: Famotidine IVP 20 mg IVP once; dilute with 10 mL 0.9% NaCl; give over 2 minutes ar6 Route: IVP; Site: right antecubital; 22:08 Follow up: Response: No adverse reaction ar6 20:49 Drug: NS 0.9% IV 1000 ml IV at 1 bolus Per protocol; to be given as a bolus over 60 ar6 minutes Route: IV; Rate: 1 bolus; Site: right antecubital; 22:08 Follow up: Response: No adverse reaction; IV Status: Completed infusion; IV Intake: ar6 1000ml 20:50 Drug: MethylPrednisoLONE IVP 125 mg IVP once Route: IVP; Site: right antecubital; ar6 22:08 Follow up: Response: No adverse reaction ar6 20:50 Drug: diphenhydrAMINE IVP 25 mg IVP once Route: IVP; Site: right antecubital; ar6 22:08 Follow up: Response: No adverse reaction ar6 Disposition: 02/21 06:29 Chart complete. sp4 Disposition Summary: 02/21/24 23:32 Discharge Ordered Notes: Location: Home sp4 Problem: new sp4 Symptoms: have improved sp4 Condition: Stable sp4 Diagnosis - Acute allergic reaction, Acute pruritis sp4 Followup: sp4 - With: Private Physician - When: 1 - 2 days - Reason: Recheck today's complaints Discharge Instructions: - Discharge Summary Sheet sp4 - Pruritus sp4 Forms: - Patient Portal Instructions sp4 Prescriptions: - Prednisone 20 mg Oral Tablet - take 2 tablets ORAL route once daily for 5 days; 10 tablet; Refills: 0, Product sp4 Selection Permitted Signatures: Brooklyn Michaels PA-C PA-C sb4 Dany Ayers MD MD sp4 Francy Jackson RN RN cm10 Lisa Weiss RN RN ar6
--- NOTE | 2024-02-21 23:32 | ER ---
Nurse's Notes [facility] Name: Manfred Canales Jr Age: 53 yrs Sex: Male : 1970 Arrival Date: 02/21/2024 Time: 19:10 Bed 9 Private MD: Diagnosis: Acute allergic reaction, Acute pruritis Presentation: 02/20 19:51 Chief complaint: Patient states: Had a IT Pump Trial with Fluoro with versed this cm10 morning and has been itching since he had the procedure done. Pt has tried OTC medication with no relief. Coronavirus screen: Client denies travel out of the [place] in the last 14 days. Ebola Screen: Patient denies travel to an Ebola-affected area in the 21 days before illness onset. No symptoms or risks identified at this time. Onset: The symptoms/episode began/occurred today. Anaphylaxis evaluation, no signs or symptoms of anaphylaxis were noted. Initial Sepsis Screen: Does the patient meet any 2 criteria? No. Patient's initial sepsis screen is negative. Does the patient have a suspected source of infection? No. Patient's initial sepsis screen is negative. Risk Assessment: Do you want to hurt yourself or someone else? Patient reports no desire to harm self or others. Onset of symptoms was February 21, 2024. 19:51 Method Of Arrival: Ambulatory cm10 19:51 Acuity: ISABEL 3 cm10 Triage Assessment: 19:54 General: Appears in no apparent distress. comfortable, Behavior is calm, cooperative. cm10 Neuro: No deficits noted. Level of Consciousness is awake, alert, obeys commands, Oriented to person, place, time, situation, Appropriate for age. Respiratory: No deficits noted. Airway is patent Respiratory effort is even, unlabored, Respiratory pattern is regular, symmetrical. Derm: Reports itching. Historical: - Allergies: 19:53 No Known Allergies; cm10 - PMHx: 19:53 Diabetes - NIDDM; Gout; High Cholesterol; Hypertension; Myocardial infarction; cm10 - PSHx: 19:53 carpal tunnel; Coronary artery bypass graft; disc fusion; Stented artery; cm10 - Immunization history:: Adult Immunizations up to date. - Infectious Disease History:: Denies. - Social history:: Smoking status: unknown. - Family history:: not pertinent. Screenin:00 [facility] ED Fall Risk Assessment (Adult) History of falling in the last 3 months, ar6 including since admission No falls in past 3 months (0 pts) Confusion or Disorientation No (0 pts) Intoxicated or Sedated No (0 pts) Impaired Gait No (0 pts) Mobility Assist Device Used No (0 pt) Altered Elimination No (0 pt) Score/Fall Risk Level 0 - 2 = Low Risk Oriented to surroundings, Maintained a safe environment, Educated pt \T\ family on fall prevention, incl call for assistance when getting out of bed, Hourly rounding (assess needs \T\ fall precautionary measures) done. Abuse screen: Denies threats or abuse. Denies injuries from another. Nutritional screening: No deficits noted. Tuberculosis screening: No symptoms or risk factors identified. Assessment: 20:00 General: Appears in no apparent distress. uncomfortable, Behavior is calm, cooperative, ar6 appropriate for age, drowsy, pt. reports taking 2 tablets of benadryl x2. Pain: Denies pain. Neuro: Level of Consciousness is awake, alert, obeys commands, Oriented to person, place, time, situation. Cardiovascular: Capillary refill < 3 seconds. Respiratory: Airway is patent Breath sounds are clear bilaterally. GI: Abdomen is round non-distended. : No signs and/or symptoms were reported regarding the genitourinary system. EENT: Oral mucosa is moist. Derm: Reports itching, pt. reports having procedure this morning fluro with versed and pt. has been itching since d/c; pt. reports taking 2 tablets of Benadryl x2 without relief. Musculoskeletal: No signs and/or symptoms reported regarding the musculoskeletal system. Vital Signs: 19:51 BP 138 / 74; Pulse 70; Resp 16; Temp 96.9(IR); Pulse Ox 96% on R/A; Weight 104.33 kg; cm10 Height 5 ft. 11 in. ; Pain 0/10; 20:00 BP 134 / 74; Pulse 64; Resp 16; Pulse Ox 99% on R/A; Pain 0/10; ar6 21:58 BP 128 / 72; Pulse 67; Resp 16; Pulse Ox 99% on R/A; ar6 19:51 Body Mass Index 32.08 (104.33 kg, 180.34 cm) cm10 19:51 Pain Scale: Adult cm10 20:00 Pain Scale: Adult ar6 Ione Coma Score: 20:18 Eye Response: spontaneous(4). Motor Response: obeys commands(6). Verbal Response: sp4 oriented(5). Total: 15. ED Course: 19:13 Patient arrived in ED. mg5 19:22 Brooklyn Michaels PA-C [facility] sb4 19:22 Dwayne Casey MD is Attending Physician. sb4 19:53 Triage completed. cm10 19:54 Arm band placed on Patient placed in an exam room, on a stretcher. cm10 19:56 Lisa Weiss RN is Primary Nurse. ar6 20:00 No apparent distress. ar6 20:00 No provider procedures requiring assistance completed. ar6 20:03 Dany Ayers MD is Attending Physician. sp4 20:40 Inserted saline lock: 22 gauge in right antecubital area, using aseptic technique. vk Blood collected. Flushed with 10 mL NS. 20:49 Lisa Weiss RN is Primary Nurse. ar6 23:43 IV discontinued, intact, bleeding controlled, No redness/swelling at site. Pressure ar6 dressing applied. Administered Medications: 22:09 Discontinued: ns 0.9% 1000 ml IV at 1 bolus Per protocol; to be given as a bolus over ar6 60 minutes 20:49 Drug: Famotidine IVP 20 mg IVP once; dilute with 10 mL 0.9% NaCl; give over 2 minutes ar6 Route: IVP; Site: right antecubital; 22:08 Follow up: Response: No adverse reaction ar6 20:49 Drug: NS 0.9% IV 1000 ml IV at 1 bolus Per protocol; to be given as a bolus over 60 ar6 minutes Route: IV; Rate: 1 bolus; Site: right antecubital; 22:08 Follow up: Response: No adverse reaction; IV Status: Completed infusion; IV Intake: ar6 1000ml 20:50 Drug: MethylPrednisoLONE IVP 125 mg IVP once Route: IVP; Site: right antecubital; ar6 22:08 Follow up: Response: No adverse reaction ar6 20:50 Drug: diphenhydrAMINE IVP 25 mg IVP once Route: IVP; Site: right antecubital; ar6 22:08 Follow up: Response: No adverse reaction ar6 Medication: 20:00 VIS not applicable for this client. ar6 Intake: 22:08 IV: 1000ml; Total: 1000ml. ar6 Outcome: 23:32 Discharge ordered by . sp4 :43 Discharged to home ambulatory, with family, ar6 :43 Condition: good :43 Discharge instructions given to patient, family, Instructed on discharge instructions, follow up and referral plans. medication usage, Demonstrated understanding of instructions, follow-up care, medications, Prescriptions given X :43 Patient left the ED. ar6 Signatures: Brooklyn Michaels PA-C PATrino sb4 Dany Ayers MD MD sp4 Francy Jackson RN RN cm10 Michelle Smith5 Torrie Rosario Amber, RN RN ar6
[2024-02-22 05:29] VITALS: TEMP 96.9
[2024-02-22 05:30] VITALS: O2SAT 99
[2024-02-22 05:31] VITALS: BP 128/72
== END 2024-02-21 23:43 | disposition home or self-care (01) ==
LOC: ER 19:10
DX: L29.9 Pruritus, unspecified (principal); E11.9 Type 2 diabetes mellitus without complications; I10 Essential (primary) hypertension; I25.2 Old myocardial infarction; Z95.1 Presence of aortocoronary bypass graft
CPT/HCPCS: 96361; 96375; 96374; 99284; J1200; J2919; J7030

== ENCOUNTER 2024-07-27 15:19 | Emergency (ER) | payer OTHER ==
--- OUTSIDE RECORDS SUMMARY | 2024-07-27 15:22 | XMS REPORT | Clinical Summary ---
Author Name Unknown Organization [facility] Address [address] [place] [address] Care Team Providers Care Diplomatic Courier Name Role Phone Taylor Lozada NP Unavailable Jose Harrell MD Primary Care Provider Active Problems Problem Noted Date Diagnosed Date Elevated prostate specific antigen (PSA) 025 Encounters Date Type Department Care Team Description 05/24/2024 Orders Only MD [facility] in [place] - Urology [address] [place] [id number] Vanda Troy PA-C Elevated prostate specific antigen (PSA) (Primary Dx) after 07/28/2023 Social History Tobacco Use Types Packs/Day Years Used Date Smoking Tobacco: Never Assessed Sex and Gender Information Value Date Recorded Sex Assigned at Male 05/10/2024 4:25 PM COOK SHORT ORDER Legal Sex Male 4:20 PM COOK SHORT ORDER Gender Identity Male 05/10/2024 4:25 PM COOK SHORT ORDER Sexual Orientation Straight 05/10/2024 4: 25 PM COOK SHORT ORDER Plan of Treatment Upcoming Encounters Date Type Department Care Team (Late st Contact Info) Description 10/03/2024 10:00 AM CDT NPR MDA PATIENT ACCESS 10/03/2024 10:45 AM CDT Lab MD [facility] [place] [facility] [address] [facility] [address] [place], [place] [id number] Vanda Troy PA-C [address] [place] [address] [email or web address] 10/03/2024 11:00 AM CDT Office Visit MD Rodriguez in [place] - Urology [address] [place] [address] Jose Harrell MD [address] [place], [place] [id number] [email or web address] 10/03/2024 2:15 PM CDT Ancillary Procedure [facility] [address] [place], [place] [id number] Vanda Troy PAAnandC [address] [place] [address] [email or web address] Health Maintenance Due Date Last Done Comments Pneumococcal Vaccine: 50+ Years (1 of - PCV) 019 COVID-19 Vaccine ( - 2023- season) 2024 Influenza Vaccine (#1) 2024 08/27/2015 Insurance [place]ICAID [place] TRADITIONAL STAR NON SSI [facility] MEDICARE ADVANTAGE [place]ICAID [place] TRADITIONAL STAR NON SSI [facility] MEDICARE ADVANTAGE Care Teams Diplomatic Courier Relationship Specialty Start Date End Date Taylor Lozada NP [address] [place] [phone] PCP - External Primary Care Provider Family Practice 05/09/24 Jsoe Harrell MD [address] [place] [id number] [email or web address] PCP - General Urology 05/15/24
--- NOTE | 2024-07-27 16:29 | RAD REPORT ---
Procedure: Chest Pa And Lat (2 Views) HISTORY: Cough COMPARISON: 2021 FINDINGS: The lungs appear clear of acute infiltrate. No significant pleural effusion noted. The heart is mildly enlarged. Post surgical changes involve the chest IMPRESSION: No acute abnormality is displayed.
[2024-07-27] MEDS ORDERED: CEFTRIAXONE 1000 MG/VIAL ONE (17:17)
--- NOTE | 2024-07-27 17:24 | ER ---
Nurse's Notes [facility] Name: Manfred Canales Jr Age: 54 yrs Sex: Male : 1970 Arrival Date: 07/27/2024 Time: 15:19 Bed 16 Private MD: Diagnosis: Fever, unspecified;Pneumonia, unspecified organism Presentation: 07/27 15:26 Chief complaint: Patient states: Rattling in chest started yesterday. Dr. Lozada gave ll1 him antibiotics, cough medicine, and breathing treatments. Fever 102.1 today, so wanted to get him checked. Coronavirus screen: Client denies travel out of the [place] in the last 14 days. congestion, cough unrelated to allergies, Client presents with at least one sign or symptom that may indicate coronavirus-19. Standard/surgical mask placed on the client. Ebola Screen: Patient denies travel to an Ebola-affected area in the 21 days before illness onset. Initial Sepsis Screen: Does the patient meet any 2 criteria? No. Patient's initial sepsis screen is negative. Does the patient have a suspected source of infection? No. Patient's initial sepsis screen is negative. Risk Assessment: Do you want to hurt yourself or someone else? Patient reports no desire to harm self or others. Onset of symptoms was July 26, 2024. 15:26 Method Of Arrival: Ambulatory ll1 15:26 Acuity: ISABEL 3 ll1 Triage Assessment: 15:26 General: Appears uncomfortable, Behavior is calm, cooperative, appropriate for age, ll1 Reports fatigue for. General: Reports fever for feeling ill for. Neuro: Reports weakness. Respiratory: Reports shortness of breath. Historical: - Allergies: 15:26 No Known Drug Allergies; ll1 - PMHx: 15:26 Diabetes - NIDDM; Myocardial infarction; Hypertension; High Cholesterol; Gout; ll1 - PSHx: 15:26 carpal tunnel; Coronary artery bypass graft; disc fusion; Stented artery; ll1 - Immunization history:: Adult Immunizations up to date. - Infectious Disease History:: Denies. - Social history:: Smoking status: Patient denies any tobacco usage or history of. - Family history:: not pertinent. - Hospitalizations: : No recent hospitalization is reported. Screenin:45 [facility] ED Fall Risk Assessment (Adult) History of falling in the last 3 months, kj2 including since admission No falls in past 3 months (0 pts) Confusion or Disorientation No (0 pts) Intoxicated or Sedated No (0 pts) Impaired Gait No (0 pts) Mobility Assist Device Used No (0 pt) Altered Elimination No (0 pt) Score/Fall Risk Level 0 - 2 = Low Risk Maintained a safe environment, Hourly rounding (assess needs \T\ fall precautionary measures) done. Abuse screen: Denies threats or abuse. Denies injuries from another. Nutritional screening: No deficits noted. Tuberculosis screening: No symptoms or risk factors identified. Assessment: 16:45 General: Appears in no apparent distress. Behavior is cooperative. Pain: Complains of kj2 pain in back Pain currently is 4 out of 10 on a pain scale. Neuro: Level of Consciousness is awake, alert, obeys commands, Oriented to person, place, time, situation. Cardiovascular: Patient's skin is warm and dry. Respiratory: Airway is patent Respiratory effort is unlabored. GI: No signs and/or symptoms were reported involving the gastrointestinal system. : No signs and/or symptoms were reported regarding the genitourinary system. 17:37 Reassessment: Patient appears in no apparent distress at this time. Patient and/or kj2 family updated on plan of care and expected duration. Pain level reassessed. Patient is alert, oriented x 3, equal unlabored respirations, skin warm/dry/pink. Vital Signs: 15:26 BP 118 / 75; Pulse 97; Resp 20; Temp 99.4; Pulse Ox 95% on R/A; Weight 103.42 kg; ll1 Height 5 ft. 11 in. ; Pain 9/10; 17:37 BP 156 / 83; Pulse 20; Resp 20; Temp 98.6; Pulse Ox 100% ; kj2 15:26 Body Mass Index 31.80 (103.42 kg, 180.34 cm) ll1 15:26 Pain Scale: Adult ll1 ED Course: 15:21 Patient arrived in ED. mr 15:24 Jagdeep Kirby MD is Attending Physician. rn 15:28 Triage completed. ll1 15:28 Arm band placed on Patient placed in an exam room, on a stretcher. ll1 15:56 XRAY Chest Pa And Lat (2 Views) In Process Unspecified. EDMS 16:32 Ren, Angela, RN is Primary Nurse. kj2 16:45 Patient has correct armband on for positive identification. Placed in gown. Bed in low kj2 position. Provided Education on: call light. 16:45 No provider procedures requiring assistance completed. kj2 17:39 Patient did not have IV access during this emergency room visit. kj2 Administered Medications: 17:24 Drug: Rocephin (cefTRIAXone) IM 1 grams IM once Route: IM; Site: left vastus lateralis; kj2 17:45 Follow up: Response: No adverse reaction kj2 Medication: 16:45 VIS not applicable for this client. kj2 Outcome: 17:24 Discharge ordered by . rn 17:39 Discharged to home via wheelchair, with family, kj2 17:39 Condition: stable 17:39 Discharge instructions given to patient, Instructed on discharge instructions, follow up and referral plans. Demonstrated understanding of 17:58 Patient left the ED. kj2 Signatures: Dispatcher [employer] EDMS Renetta Juárez, Reg Reg Jagdeep Hanley MD MD rn Lewis, Lynsay, RN RN ll1 Angela Mcclure, ANASTASIIA RN kj2
--- NOTE | 2024-07-27 17:24 | EDPHYS ---
Physician Documentation [facility] Name: Manfred Canales Jr Age: 54 yrs Sex: Male : 1970 Arrival Date: 07/27/2024 Time: 15:19 Bed 16 Private MD: ED Physician Jagdeep Kirby HPI: 07/27 16:08 This 54 yrs old Black Male presents to ER via Ambulatory with complaints of Fever. rn 16:08 The patient reports fever, that was measured at 102.1 degrees Fahrenheit. rn 16:08 Onset: The symptoms/episode began/occurred yesterday. Modifying factors: there are no rn obvious modifying factors. Associated signs and symptoms: Pertinent positives: chills, cough, Pertinent negatives: abdominal pain, hemoptysis, shortness of breath, swelling, vomiting. Severity of symptoms: At their worst the symptoms were mild in the emergency department the symptoms are unchanged. The patient has not experienced similar symptoms in the past. The patient has been recently seen by a physician:. Patient reports had lower back surgery this past week. Has mild postoperative pain but overall improving. No complaints about back itself. Noticed fever yesterday, low-grade, associated with cough and "rattling in chest". Seen by PCP yesterday prescribed doxycycline as well as inhaler. Patient reports inhaler makes him cough but otherwise does not help. Today noted a temperature of 102.1, so brought him in for evaluation and chest x-ray. PCP ordered outpatient chest x-ray but they were not able to obtain it in a timely fashion so came here.. Historical: - Allergies: 15:26 No Known Drug Allergies; ll1 - PMHx: 15:26 Diabetes - NIDDM; Myocardial infarction; Hypertension; High Cholesterol; Gout; ll1 - PSHx: 15:26 carpal tunnel; Coronary artery bypass graft; disc fusion; Stented artery; ll1 - Immunization history:: Adult Immunizations up to date. - Infectious Disease History:: Denies. - Social history:: Smoking status: Patient denies any tobacco usage or history of. - Family history:: not pertinent. - Hospitalizations: : No recent hospitalization is reported. ROS: 16:08 Constitutional: Positive for fever Cardiovascular: Negative for chest pain, rn palpitations, and edema, Respiratory: Positive for cough, negative for shortness of breath or hemoptysis Abdomen/GI: Negative for abdominal pain, nausea, vomiting, diarrhea, and constipation, Back: Negative for injuryOr worsening pain MS/Extremity: Negative for injury and deformity, Skin: Negative for injury, rash, and discoloration, Neuro: Negative for headache, weakness, numbness, tingling, and seizure, Exam: 16:08 Constitutional: This is a well developed, well nourished patient who is awake, alert, rn and in no acute distress. Cardiovascular: Regular rate and rhythm. No pulse deficits. Respiratory: Mild tachypnea, diminished breath sounds right base, no wheezing MS/ Extremity: Pulses equal, no cyanosis. Neuro: Awake and alert, GCS 15 Vital Signs: 15:26 BP 118 / 75; Pulse 97; Resp 20; Temp 99.4; Pulse Ox 95% on R/A; Weight 103.42 kg; ll1 Height 5 ft. 11 in. ; Pain 9/10; 17:37 BP 156 / 83; Pulse 20; Resp 20; Temp 98.6; Pulse Ox 100% ; kj2 15:26 Body Mass Index 31.80 (103.42 kg, 180.34 cm) ll1 15:26 Pain Scale: Adult ll1 MDM: 15:24 Medical Screening Exam initiated rn 17:19 Differential diagnosis: viral Infection, bacterial infection, URI, bronchitis, rn pneumonia. Data reviewed: vital signs, nurses notes, radiologic studies, plain films, and as a result, I will discharge patient. Counseling: I had a detailed discussion with the patient and/or guardian regarding the historical points, exam findings, and any diagnostic results supporting the discharge/admit diagnosis, radiology results, the need for outpatient follow up, to return to the emergency department if symptoms worsen or persist or if there are any questions or concerns that arise at home. Special discussion: I discussed with the patient/guardian in detail that at this point there is no indication for admission to the hospital. It is understood, however, that if the symptoms persist or worsen the patient needs to return immediately for re-evaluation. ED course: Chest x-ray images negative for pneumonia or pneumothorax. Clinically patient does have respiratory infection. Was prescribed doxycycline by PCP. Initially thought about putting patient on Levaquin but is on blood thinners that could precipitate prolonged QT with the interaction. Discussed this with patient and spouse. Will add Augmentin instead to doxycycline for double coverage and recommend PCP follow-up and return precautions given. 03 15:36 Order name: XRAY Chest Pa And Lat (2 Views); Complete Time: 16:43 rn Administered Medications: 17:24 Drug: Rocephin (cefTRIAXone) IM 1 grams IM once Route: IM; Site: left vastus lateralis; kj2 17:45 Follow up: Response: No adverse reaction kj2 Disposition Summary: 07/27/24 17:24 Discharge Ordered Notes: Location: Home rn Problem: new rn Symptoms: have improved rn Condition: Stable rn Diagnosis - Fever, unspecified rn - Pneumonia, unspecified organism rn Followup: rn - With: Private Physician - When: As needed - Reason: Recheck today's complaints, Re-evaluation by your physician Discharge Instructions: - Discharge Summary Sheet rn - Fever, Adult rn - Community-Acquired Pneumonia, Adult rn Forms: - Medication Reconciliation Form rn - Antibiotic handicapper harness racing - Prescription Opioid Use rn - Patient Portal Instructions rn - Leadership Thank You Letter rn Prescriptions: - Augmentin 875-125 mg Oral Tablet - take 1 tablet ORAL route every 12 hours for 10 days; 20 tablet; Refills: 0, rn Product Selection Permitted Signatures: Dispatcher [employer] EDMS Jagdeep Kirby MD MD rn Lewis, Lynsay, RN RN ll1 Angela Mcclure RN RN kj2 Corrections: (The following items were deleted from the chart) 15:36 15:36 Chest Pa And Lat (2 Views)+[email or web address] ordered. EDMS EDMS 17:24 16:55 IS+[email or web address] ordered. EDMS EDMS
[2024-07-27 18:14] VITALS: BP 156/83; TEMP 98.6; O2SAT 100
== END 2024-07-27 17:58 | disposition home or self-care (01) ==
LOC: ER 15:19
DX: J18.9 Pneumonia, unspecified organism (principal); Z95.1 Presence of aortocoronary bypass graft
CPT/HCPCS: 71046; 96372; 99284; J0696